=== PATIENT | female | born 1950 | race Caucasian/White ===

== ENCOUNTER 2017-04-20 19:29 | Inpatient (IN) | payer BC, OTHER ==
[~2017-04-20] VITALS: Ht 154.9 cm; Wt 110.4 kg
[~2017-04-20 19:29] MED LIST: APIX1TAB3 PO; ASCO1CAP3 PO; ATV/1 PO; BENA1TAB19 PO; BIOTCAP2 PO; CHOL1CAP57 PO; CLR10 PO; CRD200 PO; CYAN100020 PO; DOCU-94 PO; FERR1TAB23 PO; FURO40TA3 PO; GLC500 PO; INOS500T PO; ISOS30TA3 PO; LEVO112T2 PO; MAGN400T6 PO; MELATAB2 PO; METHPOW7 PO; MISCCAP80 PO; MULT-513 PO; PYRI100T4 PO; SYMIN160 PO; TRAM-10 PO; VITACAP37 PO
[2017-04-20] MEDS ORDERED: DILTIAZEM HCL 5 MG/ML 5 ML VIAL ONE ×2 (19:43→23:00)
[2017-04-20] MEDS ORDERED: APIXABAN 2.5 MG TAB PO STA (19:55)
[2017-04-20] MEDS ORDERED: DILTIAZEM BOLUS / DRIP IV STA ×2 (20:04→22:37)
[2017-04-20 20:13] LABS: BASO % 0.7 %; BASO ABS # 0.06 K/uL (0-0.2); COMPLETE YES; EOS % 3.6 %; HEMATOCRIT 45.8 % (37-47); IG% 0.2 %; LYMPH % 21.8 %; LYMPH ABS # 1.75 K/uL (1.2-3.4); MEAN CELL VOLUME 93.9 fL (80-100); MEAN CORPUSCULAR HEMOGLOBIN 30.1 pg (25-34); MEAN CORPUSCULAR HGB CONC 32.1 g/dl (32-36); MEAN PLATELET VOLUME 10.8 fL (7.4-10.4); MONO % 6.1 %; NEUT % 67.6 %; PLATELET COUNT 196 K/uL (130-400); RED BLOOD COUNT 4.88 M/uL (4.2-5.4); WHITE BLOOD COUNT 8.02 K/uL (4.8-10.8)
[2017-04-20 20:28] LABS: PARTIAL THROMBOPLASTIN RATIO 1.1; PROTHROMBIN TIME (PATIENT) 10.8 SECONDS (9.0-12.0)
[2017-04-20] MEDS: DILTIAZEM HCL INJ 125 MG in DEXTROSE 5% 100ML IV PRN ×2 (20:40→21:32)
[2017-04-20 20:51] LABS: BUN/CREATININE RATIO 13.6 (10-20); CALCIUM 9.5 mg/dl (8.5-10.1); CREATININE 1.2 mg/dl (0.60-1.20); MAGNESIUM 1.9 mg/dl (1.8-2.4); POTASSIUM 4.3 mmol/L (3.5-5.1)
--- NOTE | 2017-04-20 20:59 | DIAGNOSTIC IMAGING REPORT ---
CHEST ONE VIEW PORTABLE CLINICAL HISTORY: 66 years-old Female presenting with cp. TECHNIQUE: Portable upright AP view of the chest was obtained. COMPARISON: 07/24/2016. FINDINGS: Cardiac silhouette enlarged. Bibasilar opacities, new from prior. Increased prominence of interstitial lung markings. No significant change in pulmonary vascular prominence. No large pleural effusion or pneumothorax. Osseous structures normal. Upper abdomen normal. IMPRESSION: 1. Bibasilar opacities and interstitial prominence in the setting of cardiomegaly. This could represent mild pulmonary edema, aspiration, or infection. Electronically signed by: Ephraim Mera M.D. 04/20/2017 8:57 PM Dictated Date/Time: 04/20/2017 8:55 PM
[2017-04-20] MEDS ORDERED: LORAZEPAM 1 MG TAB PO PRN (22:30)
[2017-04-20] MEDS ORDERED: TRAMADOL HCL 50 MG TAB PO PRN (22:30)
--- NOTE | 2017-04-20 22:36 | EMERGENCY ROOM VISIT NOTE ---
History Report prepared by Jazz: Keyshawn Kaye Under the Supervision of: Dr. Tucker Leone M.D. First contact with patient: 19:40 Chief Complaint: CARDIAC ASSESSMENT Stated Complaint: ATRIAL FIBRILATION 170 History of Present Illness The patient is a 66 year old female who presents to the Emergency Room with complaints of constant, sudden, middle chest pain beginning 45 minutes ago. She currently rates her discomfort an 8/10. The patient states her heart suddenly began to race. She reports her chest pain and shortness of breath began at the same time her heart began to race. The patient notes she has a history of atrial fibrillation with RVR. She states she had a cardiac ablation 7 months ago , and her heart has not raced since. The patient reports she currently takes 5mg of Eliquis twice a day, and she has not taken her evening dose yet. She also reports that she is taking amiodarone. She notes she has a history of asthma and used her rescue inhaler. She does use oxygen when necessary. The patient states her shortness of breath was slightly alleviated, but then her heart began to race. She reports she is on oxygen at home at night. The patient notes she was on Lasix, but she stopped taking it 2 months ago. She denies fevers, vomiting, diarrhea, blood clot in the lungs, and being bed ridden recently. The patient states she has a history of thyroid problems, but she denies a history of [place]. Source of History: patient Onset: 45 minutes ago Position: chest (middle) Timing: constant Associated Symptoms: + SOB, No fevers, No vomiting, No diarrhea Review of Systems See HPI for pertinent positives & negatives. A total of 10 systems reviewed and were otherwise negative. Past Medical & Surgical Medical Problems: (1) Acute respiratory failure (2) Aortic Atherosclerosis (3) Atrial fibrillation with RVR (4) Cellulitis Nos (5) Chest pain (6) Diab Ninfa Wo Compl, Type Ii Or Unspec Type, Not Uncntrld (7) Hypertensive urgency (8) Hypothyroidism Nos (9) Morbid Obesity Family History Heart disease Social History Smoking Status: Never Smoker Drug Use: none Marital Status: Housing Status: lives with family Occupation Status: retired Current/Historical Medications Scheduled Amiodarone HCl (Amiodarone HCl), 200 MG PO QAM Apixaban (Eliquis), 5 MG PO BID Ascorbic Acid (Vitamin C), 1 CAP PO QAM Benazepril (Lotensin), 40 MG PO QAM Biotin (Biotin 5000), 1 CAP PO DAILY Budesonide/Formoterol Fumarate (Symbicort 160/4.5 Inhaler), 2 PUFFS PO BID Cholecalciferol (Vitamin D3), 2,000 UNITS PO DAILY Cyanocobalamin (Vitamin B12), 1 CAP PO DAILY Docusate Sodium (Colace), 100 CAP PO QAM Inositol (Inositol), Unknown Dose PO DAILY Isosorbide Mononitrate Ext Rel (Imdur Ext Rel), 30 MG PO QAM Levothyroxine Sodium (Synthroid), 112 MCG PO QAM Loratadine (Claritin), 10 MG PO QAM Magnesium Oxide (Mag-Ox), 400 MG PO DAILY Melatonin (Melatonin Maximum Strengt), 1 TAB PO HS Metformin HCl (Metformin HCl), 500 MG PO BID Methylcellulose (Laxative) (Citrucel Fiber Laxative), 1 TBS PO QAM Multivitamins/Minerals (Mvi With Minerals), 1 TAB PO DAILY Probiotic Product (Probiotic), 1 CAP PO DAILY Pyridoxine (Vitamin B6), 100 MG PO DAILY Vitamin E (E-400), 1 CAP PO DAILY Scheduled PRN Lorazepam (Ativan), 1 MG PO QID PRN for Anxiety Tramadol (Ultram), 50-100 MG PO DAILY PRN for Pain Allergies Coded Allergies: Azithromycin (Unverified Allergy, Unknown, LEUKOCYTOPLASTIC VASCULITIS, ) Povidone (Verified Allergy, Unknown, RASH, 04/20/17) NSAIDs (Verified Adverse Reaction, Mild, HIGH BP - AVOID, GASTRIC UPSET/ GI BLEEDING, 04/20/17) Adhesives (Verified Adverse Reaction, Unknown, RASH, 04/20/17) Physical Exam Vital Signs Date Time Temp Pulse Resp B/P (MAP) Pulse Ox O2 Delivery O2 Flow Rate FiO2 04/20/17 21:41 128/96 04/20/17 21:40 134 27 93 04/20/17 21:35 119 24 95 04/20/17 21:34 126/80 04/20/17 21:32 04/20/17 21:30 136 29 04/20/17 21:25 123 21 92 04/20/17 21:21 120/71 04/20/17 21:20 112 23 92 04/20/17 21:15 125 15 94 04/20/17 21:11 04/20/17 21:10 117 32 95 04/20/17 21:05 136 27 95 04/20/17 21:01 124/66 04/20/17 21:00 133 23 95 04/20/17 20:23 122 20 124/77 90 Nasal Cannula 4.0 04/20/17 20:10 137 04/20/17 20:07 109 26 139/102 89 Nasal Cannula 4.0 04/20/17 20:06 89 Nasal Cannula 4.0 04/20/17 20:06 89 Nasal Cannula 4.0 04/20/17 19:33 36.9 185 26 152/88 85 Room Air Physical Exam Constitutional: Vital signs reviewed. Pale and diaphoretic. Eyes: Pupils are equal round reactive to light. Conjunctiva are noninjected. ENT: Pharynx is clear without erythema or exudate. Mucous membranes are moist. Neck supple without meningeal signs. Respiratory: Clear to auscultation bilaterally. Breath sounds are equal bilaterally. Cardiovascular: Tachycardic rate of 180 and regular rhythm. No rubs or gallops. GI: Soft, nondistended and nontender. Bowel sounds are present. Musculoskeletal: Mild peripheral edema. No lower extremity tenderness. Integumentary: No cyanosis. Neurological: The patient is awake and alert. No focal deficits. Psychiatric: Normal affect. Anxious. Medical Decision & Procedures ER Provider Diagnostic Interpretation: X-ray results as stated below per interpretation by me and the radiologist: CHEST ONE VIEW PORTABLE CLINICAL HISTORY: 66 years-old Female presenting with cp. TECHNIQUE: Portable upright AP view of the chest was obtained. COMPARISON: 07/24/2016. FINDINGS: Cardiac silhouette enlarged. Bibasilar opacities, new from prior. Increased prominence of interstitial lung markings. No significant change in pulmonary vascular prominence. No large pleural effusion or pneumothorax. Osseous structures normal. Upper abdomen normal. IMPRESSION: 1. Bibasilar opacities and interstitial prominence in the setting of cardiomegaly. This could represent mild pulmonary edema, aspiration, or infection. Electronically signed by: Ephraim Mera M.D. 04/20/2017 8:57 PM Dictated Date/Time: 04/20/2017 8:55 PM Laboratory Results 04/20/17 19:55 Red Blood Count 4.88, Mean Corpuscular Volume 93.9, Mean Corpuscular Hemoglobin 30.1, Mean Corpuscular Hemoglobin Concent 32.1, Mean Platelet Volume 10.8, Neutrophils (%) (Auto) 67.6, Lymphocytes (%) (Auto) 21.8, Monocytes (%) (Auto) 6.1, Eosinophils (%) (Auto) 3.6, Basophils (%) (Auto) 0.7, Neutrophils # (Auto) 5.41, Lymphocytes # (Auto) 1.75, Monocytes # (Auto) 0.49, Eosinophils # (Auto) 0.29, Basophils # (Auto) 0.06 04/20/17 19:55 Test 04/20/17 19:55 04/20/17 20:01 White Blood Count 8.02 K/uL (4.8-10.8) Red Blood Count 4.88 M/uL (4.2-5.4) Hemoglobin 14.7 g/dL (12.0-16.0) Hematocrit 45.8 % (37-47) Mean Corpuscular Volume 93.9 fL (80-100) Mean Corpuscular Hemoglobin 30.1 pg (25-34) Mean Corpuscular Hemoglobin Concent 32.1 g/dl (32-36) Platelet Count 196 K/uL (130-400) Mean Platelet Volume 10.8 fL (7.4-10.4) Neutrophils (%) (Auto) 67.6 % Lymphocytes (%) (Auto) 21.8 % Monocytes (%) (Auto) 6.1 % Eosinophils (%) (Auto) 3.6 % Basophils (%) (Auto) 0.7 % Neutrophils # (Auto) 5.41 K/uL (1.4-6.5) Lymphocytes # (Auto) 1.75 K/uL (1.2-3.4) Monocytes # (Auto) 0.49 K/uL (0.11-0.59) Eosinophils # (Auto) 0.29 K/uL (0-0.5) Basophils # (Auto) 0.06 K/uL (0-0.2) RDW Standard Deviation 50.6 fL (36.4-46.3) RDW Coefficient of Variation 14.7 % (11.5-14.5) Immature Granulocyte % (Auto) 0.2 % Immature Granulocyte # (Auto) 0.02 K/uL (0.00-0.02) Prothrombin Time 10.8 SECONDS (9.0-12.0) Prothromb Time International Ratio 1.0 (0.9-1.1) Activated Partial Thromboplast Time 29.0 SECONDS (21.0-31.0) Partial Thromboplastin Ratio 1.1 Anion Gap 9.0 mmol/L (3-11) Est Creatinine Clear Calc Drug Dose 53.3 ml/min Estimated GFR () 54.2 Estimated GFR (Non- 46.7 BUN/Creatinine Ratio 13.6 (10-20) Calcium Level 9.5 mg/dl (8.5-10.1) Magnesium Level 1.9 mg/dl (1.8-2.4) Thyroid Stimulating Hormone (TSH) 4.000 uIu/ml (0.300-4.500) Free Thyroxine 1.34 ng/dl (0.80-1.60) Chemistry Specimen Hemolysis Bedside Troponin I < 0.030 ng/ml (0-0.045) Laboratory results as reviewed by me. Medications Administered Medications (Trade) Dose Ordered Sig/Deepthi Route Start Time Stop Time Status Last Admin Dose Admin Diltiazem HCl (Cardizem Inj) 25 mg STK-MED ONCE .ROUTE 04/20/17 19:43 04/20/17 19:44 DC 04/20/17 20:03 10 MG Apixaban (Eliquis Tab) 5 mg NOW STAT PO 04/20/17 19:55 04/20/17 19:58 DC 04/20/17 20:12 5 MG Diltiazem HCl 125 mg/Dextrose 125 ml @ 0 mls/hr Q0M PRN IV 04/20/17 20:15 05/20/17 20:14 04/20/17 21:32 15 MLS/HR ECG Indication: chest pain Rate (beats per minute): 173 Rhythm: atrial fibrillation (with RVR) Findings: RBBB, left axis deviation, other (QRS of 150) Comparison ECG Date: 07/24/16 Change: Comparison: similar atrial fibrillation with RVR Repeat EKG in the same visit: Atrial fibrillation with a rate of 132. QRS of 116. ST-depressions laterally. ED Course 1940: The patient was evaluated in room C06. A complete history and physical exam was performed. 1942: Ordered Diltiazem HCl 25mg .ROUTE 1954: Ordered Eliquis Tab 5mg PO 2002: I discussed the patient's case with Dr. Jarvis, [facility] House Parent. He said go with the Cardizem drop and increase her amiodarone to 200mg. 2014: Diltiazem HCl 125mg/Dextrose 125 ml @ 0mls/hr Protocol IV 2040: I reevaluated the patient. Her heart rate is in the 120s, and the Cardizem drip infusion is in process. 2101: I reevaluated the patient and discussed her exam findings, as wells as the treatment plan. The patient verbalized agreement. Her heart rate is still in the 120s, and she no longer has chest pain. The Cardizem drip is still running. 2105: I discussed the patient's case with Dr. Cole, [facility] Hospitalist. He will evaluate the patient for further management and care. Medical Decision This is a 66-year-old female who presents with sudden onset of tachycardia with associated chest pain and shortness of breath. Differential diagnoses includes A. fib with RVR, ventricular tachycardia, acute coronary syndrome, pulmonary embolism, anxiety, electrolyte abnormality. I did perform a limited focused review of portions of the patient's old chart on the electronic medical record. The patient was admitted for atrial fibrillation with RVR in June. I did evaluate the patient as noted above. IV access was established. The patient was placed on a continuous vehicle monitor technician. I did order and personally review the patient's 12-lead EKG and chest x-ray as described above. The patient does appear to have atrial fibrillation with RVR with a wide complex rhythm. She is a prior history of atrial fibrillation with RVR. Her rate is in the 180s. I did treat her with IV Cardizem 10 mg. This improved her heart rate and symptoms significantly but she remained tachycardic. She was given another bolus of 10 mg of IV Cardizem and started on a drip at 10 mg an hour IV. She had resolution of her chest pain but still had some mild tachycardia. Repeat twelve-lead EKG was obtained. Her QRS did narrow. Her rate is improved. She no longer has any chest pain. I did order and review the patient 's blood work as noted in the electronic medical record. Troponin is negative. TFTs are negative. I did not feel pulmonary embolism was likely given she is on L it lists. She did take her dose this morning but not this evening. She was given L it was 5 mg orally. I did reassess the patient multiple times. She remains chest pain-free. I did discuss the test results with her. I did discuss case with the hospitalist and keycase assembler. Medication Reconcilliation Current Medication List: was personally reviewed by me Blood Pressure Screening Patient's blood pressure: Elevated blood pressure Blood pressure disposition: Referred to PCP Consults Time Called: 1947 Consulting Physician: Dr. Jarvis, [facility] House Parent Returned Call: 2002 I discussed the patient's case with Dr. Jarvis, [facility] House Parent. He said go with the Cardizem drop and increase her amiodarone to 200mg. Additional Consults: Time Called: 2058 Consulted Physician: Dr. Cole [facility] Hospitalist Returned Call: 2105 Additional Comments: I discussed the patient's case with Dr. Cole [facility] Hospitalist. He will evaluate the patient for further management and care. Impression Primary Impression: Atrial fibrillation with rapid ventricular response Additional Impressions: Anticoagulated Hypoxia Acute chest pain Critical Care I have personally spent 35 minutes of critical care time in the direct management of this patient. This includes bedside care, interpretation of diagnostic studies, and testing, discussion with consultants, patient, and family members, and other required patient management activities. This 35 minutes is in excess of all separately billable procedures. Scribe Attestation The scribe's documentation has been prepared under my direct and personally reviewed by me in its entirety. I confirm that the note above accurately reflects all work, treatment, procedures, and medical decision making performed by me. Departure Information Dispostion Being Evaluated By Hospitalist Referrals Lewis Villaseñor M.D. (PCP) Patient Instructions [facility] Problem Qualifiers
[2017-04-20] MEDS ORDERED: DILTIAZEM HCL 5 MG/ML 5 ML VIAL IV STA (22:42)
[2017-04-20] MEDS ORDERED: LORAZEPAM 2 MG/ML 1 ML VIAL IV STA (22:42)
[2017-04-20] MEDS ORDERED: MAGNESIUM HYDROXIDE SUSP 30 ML UDC PO PRN (22:45)
[2017-04-20] MEDS ORDERED: NITROGLYCERIN 0.4 MG SL PER TAB CHARGE SL PRN (22:45)
[2017-04-20] MEDS ORDERED: POLYETHYLENE (MIRALAX) 17 GM PACK PO PRN (22:45)
[2017-04-20] MEDS ORDERED: ALUMINUM/MAGNESIUM/SIMETH (MAALOX MAX) 30 ML UDC PO PRN (22:45)
[2017-04-20] MEDS ORDERED: ONDANSETRON INJ 2 MG/ML 2 ML VIAL IV PRN (22:45)
[2017-04-20] MEDS ORDERED: MoRPHine SULFATE 2 MG/ML CARP IV PRN (22:45)
--- NOTE | 2017-04-20 22:45 | History and Physical ---
History & Physical Date & Time of Service: Apr 20, 2017 at 22:42 Chief Complaint: Atrial Fibrilation 170 Primary Care Physician: Lewis Villaseñor M.D. History of Present Illness Source: patient 66 y/o F Hx paroxysmal AF, HTN, hypothyroidism, DM, morbidly obese. Pt developed chest discomfort with minimal SOB - denies n/v, diaphoresis. Admits to feeling anxious. On arrival to the ER initial EKG revealed AF/RVR with rate of 180 and a LBBB which appears to be rate-dependent. She responded only partially to an initial dose of Cardizem with a rate reduction to approximately 120. She continued to c/o chest discomfort although she denies actual pain. Her sales & service associate was contacted and advised on doubling her dose of Amiodarone and keeping her on a Cardizem drip pending AM evaluation. Past Medical/Surgical History Medical Problems: 1) Paroxysmal AF 2) Moderate mitral stenosis with severe calcification on echo 2014 3) Morbid obesity 4) Hypothyroidism 5) DM II 6) HTN Surgical 1) B/L TKR 2) Hemorrhoidectomy due to bleeding when taking anticoagulants Family History Heart disease Social History Smoking Status: Never Smoker Drug Use: none Marital Status: Occupational Status: retired Immunizations History of Influenza Vaccine: N/A History of Tetanus Vaccine?: Yes History of Pneumococcal: No History of Hepatitis B Vaccine: No Multi-Drug Resistant Organisms History of MDRO: Yes Type of MDRO: MRSA Allergies Coded Allergies: Azithromycin (Unverified Allergy, Unknown, LEUKOCYTOPLASTIC VASCULITIS, ) Povidone (Verified Allergy, Unknown, RASH, 04/20/17) NSAIDs (Verified Adverse Reaction, Mild, HIGH BP - AVOID, GASTRIC UPSET/ GI BLEEDING, 04/20/17) Adhesives (Verified Adverse Reaction, Unknown, RASH, 04/20/17) Home Medications Scheduled Amiodarone HCl (Amiodarone HCl), 200 MG PO QAM Apixaban (Eliquis), 5 MG PO BID Ascorbic Acid (Vitamin C), 1 CAP PO QAM Benazepril (Lotensin), 40 MG PO QAM Biotin (Biotin 5000), 1 CAP PO DAILY Budesonide/Formoterol Fumarate (Symbicort 160/4.5 Inhaler), 2 PUFFS PO BID Cholecalciferol (Vitamin D3), 2,000 UNITS PO DAILY Cyanocobalamin (Vitamin B12), 1 CAP PO DAILY Docusate Sodium (Colace), 100 CAP PO QAM Inositol (Inositol), Unknown Dose PO DAILY Isosorbide Mononitrate Ext Rel (Imdur Ext Rel), 30 MG PO QAM Levothyroxine Sodium (Synthroid), 112 MCG PO QAM Loratadine (Claritin), 10 MG PO QAM Magnesium Oxide (Mag-Ox), 400 MG PO DAILY Melatonin (Melatonin Maximum Strengt), 1 TAB PO HS Metformin HCl (Metformin HCl), 500 MG PO BID Methylcellulose (Laxative) (Citrucel Fiber Laxative), 1 TBS PO QAM Multivitamins/Minerals (Mvi With Minerals), 1 TAB PO DAILY Probiotic Product (Probiotic), 1 CAP PO DAILY Pyridoxine (Vitamin B6), 100 MG PO DAILY Vitamin E (E-400), 1 CAP PO DAILY Scheduled PRN Lorazepam (Ativan), 1 MG PO QID PRN for Anxiety Tramadol (Ultram), 50-100 MG PO DAILY PRN for Pain Review of Systems Constitutional: No fever, No chills, No sweats Eyes: No worsening of vision ENT: No hearing loss, No unusual epistaxis, No nasal symptoms Respiratory: + shortness of breath, No cough, No sputum, No wheezing Cardiovascular: No chest pain Abdomen: No pain, No nausea Musculoskeletal: No joint pain Genitourinary - Female: No dysuria, No urinary frequency, No urinary urgency, No urinary incontinence, No urinary retention, No hematuria Neurologic: No memory loss, No paralysis, No weakness Psychiatric: No depression symptoms Endocrine: No fatigue Hematologic / Lymphatic: No abnormal bleeding/bruising Integumentary: No rash Allergic / Immunologic: No environmental allergies Physical Exam Vital Signs Date Time Temp Pulse Resp B/P (MAP) Pulse Ox O2 Delivery O2 Flow Rate FiO2 04/20/17 22:31 120/97 04/20/17 22:30 139 25 04/20/17 22:22 108/79 04/20/17 22:20 134 29 04/20/17 22:11 122/92 04/20/17 22:10 155 28 04/20/17 22:02 137/85 04/20/17 22:00 129 28 04/20/17 21:51 130/88 04/20/17 21:50 131 25 92 04/20/17 21:41 128/96 04/20/17 21:40 134 27 93 04/20/17 21:35 119 24 95 04/20/17 21:34 126/80 04/20/17 21:32 04/20/17 21:30 136 29 04/20/17 21:25 123 21 92 04/20/17 21:21 120/71 04/20/17 21:20 112 23 92 04/20/17 21:15 125 15 94 04/20/17 21:11 04/20/17 21:10 117 32 95 04/20/17 21:05 136 27 95 04/20/17 21:01 124/66 04/20/17 21:00 133 23 95 04/20/17 20:23 122 20 124/77 90 Nasal Cannula 4.0 04/20/17 20:10 137 04/20/17 20:07 109 26 139/102 89 Nasal Cannula 4.0 04/20/17 20:06 89 Nasal Cannula 4.0 04/20/17 20:06 89 Nasal Cannula 4.0 04/20/17 19:33 36.9 185 26 152/88 85 Room Air General Appearance: WD/WN, no apparent distress Head: normocephalic, + pertinent finding (Scarring over cheeks) Eyes: normal inspection ENT: normal ENT inspection, pharynx normal Neck: supple, no JVD Respiratory/Chest: chest non-tender, lungs clear, normal breath sounds Cardiovascular: + tachycardia, + systolic murmur, + irregularly irregular Abdomen/GI: normal bowel sounds, non tender, soft Back: normal inspection, no CVA tenderness Extremities/Musculoskelatal: normal inspection, no calf tenderness, normal capillary refill, no pedal edema, normal range of motion Neurologic/Psych: sr account executive II-XII nml as tested, no motor/sensory deficits, alert, oriented x 3 Skin: normal color, warm/dry, no rash Diagnostics Laboratory Results Results Past 24 Hours Test 04/20/17 19:55 04/20/17 20:01 Range/Units White Blood Count 8.02 4.8-10.8 K/uL Red Blood Count 4.88 4.2-5.4 M/uL Hemoglobin 14.7 12.0-16.0 g/dL Hematocrit 45.8 37-47 % Mean Corpuscular Volume 93.9 80-100 fL Mean Corpuscular Hemoglobin 30.1 25-34 pg Mean Corpuscular Hemoglobin Concent 32.1 32-36 g/dl Platelet Count 196 130-400 K/uL Mean Platelet Volume 10.8 7.4-10.4 fL Neutrophils (%) (Auto) 67.6 % Lymphocytes (%) (Auto) 21.8 % Monocytes (%) (Auto) 6.1 % Eosinophils (%) (Auto) 3.6 % Basophils (%) (Auto) 0.7 % Neutrophils # (Auto) 5.41 1.4-6.5 K/uL Lymphocytes # (Auto) 1.75 1.2-3.4 K/uL Monocytes # (Auto) 0.49 0.11-0.59 K/uL Eosinophils # (Auto) 0.29 0-0.5 K/uL Basophils # (Auto) 0.06 0-0.2 K/uL RDW Standard Deviation 50.6 36.4-46.3 fL RDW Coefficient of Variation 14.7 11.5-14.5 % Immature Granulocyte % (Auto) 0.2 % Immature Granulocyte # (Auto) 0.02 0.00-0.02 K/uL Prothrombin Time 10.8 9.0-12.0 SECONDS Prothromb Time International Ratio 1.0 0.9-1.1 Activated Partial Thromboplast Time 29.0 21.0-31.0 SECONDS Partial Thromboplastin Ratio 1.1 Sodium Level 144 136-145 mmol/L Potassium Level 4.3 3.5-5.1 mmol/L Chloride Level 110 98-107 mmol/L Carbon Dioxide Level 25 21-32 mmol/L Anion Gap 9.0 3-11 mmol/L Blood Urea Nitrogen 16 7-18 mg/dl Creatinine 1.20 0.60-1.20 mg/dl Est Creatinine Clear Calc Drug Dose 53.3 ml/min Estimated GFR () 54.2 Estimated GFR (Non- 46.7 BUN/Creatinine Ratio 13.6 10-20 Random Glucose 159 70-99 mg/dl Calcium Level 9.5 8.5-10.1 mg/dl Magnesium Level 1.9 1.8-2.4 mg/dl Thyroid Stimulating Hormone (TSH) 4.000 0.300-4.500 uIu/ml Free Thyroxine 1.34 0.80-1.60 ng/dl Chemistry Specimen Hemolysis Bedside Troponin I < 0.030 0-0.045 ng/ml EKG Inital EKG at rate of 178 - AF/RVR, L axis, LBBB - appears rate-dependent Follow-up rate 130 - AF/RVR, LAFB - morphology similar to previous Impression Assessment and Plan 66 y/o F Hx paroxysmal AF, HTN, hypothyroidism, DM, morbidly obese. Pt developed chest discomfort with minimal SOB - denies n/v, diaphoresis. Admits to feeling anxious. On arrival to the ER initial EKG revealed AF/RVR with rate of 180 and a LBBB which appears to be rate-dependent. She responded only partially to an initial dose of Cardizem with a rate reduction to approximately 120. She continued to c/o chest discomfort although she denies actual pain. 1) Rapid AF chest discomfort - has been difficult to control in past - she had required cardioversion 09/11. Her sales & service associate was contacted and advised on doubling her dose of Amiodarone and keeping her on a Cardizem drip pending AM evaluation. We will attempt to control her rate with Cardizem and Amio alone as she states she does not tolerate B blockers well - has apparently developed significant hypotension in past. The pt also states that when she has episodes of AF at home, she takes an Ativan and normally rides them out. We have obliged her with Ativan at her request. Due to her ongoing chest discomfort, we will trend her troponin and may need additional rate control measures if she exhibits an upward trend. The pt is anticoagulated with Eliquis. She claims an ASA allergy - we will provide Plavix if her troponin increases. 2) Hypothyroidism - TSH WNL - cont Synthroid 3) DM - placed on SS 4) HTN - we have held her HTN meds to allow for administration of additional rate agents as needed. Full jakob - Eliquis anticoagulation Total time for this admit including review of labs, meds, imaging, EKG, revious records - discussion with pt and ER attending - 40 min Level of Care Telemetry Resuscitation Status FULL RESUSCITATION VTE Prophylaxis VTE Risk Assessment Done? Y/N: Yes Risk Level: Moderate Given or contraindicated: Other Anticoagulation
[2017-04-20] MEDS ORDERED: LORAZEPAM 2 MG/ML 1 ML VIAL ONE (23:00)
[2017-04-20 23:30] VITALS: BP 146/81; PULSE 126; TEMP 37.2; O2SAT 93; Ht 154.9 cm; Wt 110.4 kg
[2017-04-20] MEDS ORDERED: GLUCAGON FOR INJ 1 MG VIAL SQ PRN (23:30)
[2017-04-20] MEDS ORDERED: GLUCOSE 10 TABS/TUBE PO PRN (23:30)
[2017-04-20] MEDS ORDERED: DEXTROSE 50% 50 ML SYR IV PRN (23:30)
[2017-04-20] MEDS ORDERED: GLUCOSE 40% GEL 15 GM TUBE PO PRN (23:30)
[2017-04-21] VITALS (9 sets, daily range): BP systolic 118–157; BP diastolic 68–93; PULSE 18–120; TEMP 36.6–37; O2SAT 92–98
[2017-04-21] MEDS ORDERED: DILTIAZEM HCL INJ 125 MG in DEXTROSE 5% 100ML IV PRN (00:30)
[2017-04-21] MEDS ORDERED: HEPARIN SOD 5000 UNIT/0.5 ML CARP SQ SCH (06:00)
[2017-04-21] MEDS: LEVOTHYROXINE 112 MCG TAB PO SCH (06:09)
[2017-04-21] MEDS: INSULIN ASPART 100 UNITS/ML 3 ML PEN SC SCH ×4 (07:00→20:48)
[2017-04-21] MEDS ORDERED: INFLUENZA ADMINISTRATION CHARGE ONE (08:00)
[2017-04-21] MEDS ORDERED: INFLUENZA VACCINE HIGH DOSE 65+ 0.5 ML SYR IM. ONE (08:00)
[2017-04-21] MEDS: MAGNESIUM OXIDE 400 MG TAB PO SCH (08:25)
[2017-04-21] MEDS: APIXABAN 2.5 MG TAB PO SCH ×2 (08:25→20:49)
[2017-04-21] MEDS: AMIODARONE 200 MG TAB PO SCH ×2 (08:25→20:49)
[2017-04-21] MEDS: ISOSORBIDE MONONITRATE 30 MG TABCR PO SCH (08:25)
[2017-04-21] MEDS: LORATADINE 10 MG TAB PO SCH (08:25)
[2017-04-21] MEDS: BUDESONIDE/FORMOTEROL FUMARATE 160/4.5 60 PUFFS/INHALER INH SCH ×2 (08:25→20:49)
[2017-04-21] MEDS: DOCUSATE SODIUM 100 MG CAP PO SCH (08:25)
[2017-04-21] MEDS ORDERED: AMIODARONE 200 MG TAB PO SCH (09:00)
--- NOTE | 2017-04-21 09:08 | Cardiology Consultation ---
Cardiology Consultation Date of Consultation: Apr 21, 2017. Requesting Physician: Douglas Reason for Consultation: Atrial fibrillation with RVR History of Present Illness Ms. Farley is a very pleasant 66-year-old woman with a history of atrial fibrillation post AF ablation 08/2016 still on anticoagulation and amiodarone, chronic diastolic heart failure, nonsevere valvular heart disease including rheumatic mild mitral stenosis, aortic stenosis and cugr-fz-xxfcbriv aortic regurgitation, diabetes readmitted yesterday in the setting of recurrent AF + RVR. Her cardiac history is remarkable for atrial fibrillation initially diagnosed back in April of 2014. Since then she has had multiple recurrent episodes requiring hospitalization. She has been managed with diltiazem and beta- blockers at different points but these medications have been stopped due to poor tolerance in the setting of fatigue. She has been managed with amiodarone and Eliquis since July 2014 with 1 or 2 hospitalizations a year since then and intermittent symptoms occurring every several weeks, worse in times of stress. In 2015 due to worsening shortness of breath underwent cardiac workup which included a transesophageal echo in August which confirmed mild to moderate valvular heart disease. Also underwent a left and right heart catheterization which showed only minimal coronary luminal irregularities but was noteworthy for elevated left and right-sided filling pressures with a right atrial pressure 14, mean PA pressure of 31 and a wedge pressure of 30. Patient was started on Imdur following heart catheterization for presumed chronic diastolic heart failure and had modest improvement in her shortness of breath. Patient was readmitted in July of this year with atrial fibrillation with RVR. She converted to normal sinus rhythm after IV diltiazem. After hospitalization she endorsed near daily atrial fibrillation symptoms that were no longer tolerable and as result underwent AF ablation on 09/18/2016 at [facility]. Since her AF ablation in 7 months ago she had been doing well with no recurrent symptomatic AF. Over the weekend states she was dealing with increased physical /emotional stress. Yesterday reports feeling unwell during the day but denies any preceding fevers/chills or other localizing infectious symptoms. Around 6pm yesterday acutely felt palpitations/chest pain reminiscent of prior AF symptoms. Home HR in 180s leading patient to ED. Initial ECG showed AF with RVR to 173 with LBBB. Given 10mg IV diltiazem and started on an infusion titrated up to 15mg/hr overnight. HRs down to 110s to 130s with partial relief of chest pain but persistent palpitations. Past Medical/Surgical History 1. TONY (acute kidney injury) (N17.9) 2. Aortic stenosis (I35.0) 3. Asthma (J45.909) 4. Atrial fibrillation (I48.91) 5. Chronic diastolic congestive heart failure (I50.32) 6. Chronic obstructive pulmonary disease, unspecified COPD type (J44.9) 7. CKD (chronic kidney disease), stage III (N18.3) 8. Coronary arteriosclerosis (I25.10) 9. Cough (R05) 10. Hyperlipidemia (E78.5) 11. Hypertension (I10) 12. Hypothyroidism (E03.9) 13. Hypoxemia (R09.02) 14. Nocturnal hypoxemia (G47.34) 15. Obesity, morbid, BMI 40.0-49.9 (E66.01) 16. Preoperative cardiovascular examination (Z01.810) 17. Pre-operative exam (Z01.818) 18. Rheumatic mitral stenosis (I05.0) 19. SOB (shortness of breath) (R06.02) 20. Type 2 diabetes mellitus (E11.9) 21. Valvular heart disease (I38) Family History Heart disease No premature CAD or sudden cardiac Social History Smoking Status: Never Smoker History of Alcohol Use: No Review of Systems Respiratory: + cough All Other Systems: Reviewed and Negative Allergies Coded Allergies: Azithromycin (Unverified Allergy, Unknown, LEUKOCYTOPLASTIC VASCULITIS, ) Povidone (Verified Allergy, Unknown, RASH, 04/20/17) NSAIDs (Verified Adverse Reaction, Mild, HIGH BP - AVOID, GASTRIC UPSET/ GI BLEEDING, 04/20/17) Adhesives (Verified Adverse Reaction, Unknown, RASH, 04/20/17) Medications Current Inpatient Medications Medications (Trade) Dose Ordered Sig/Deepthi Route Start Time Stop Time Status Last Admin Dose Admin Budesonide/ Formoterol Fumarate (Symbicort 160/ 4.5 Inh) 2 puffs BID INH 04/21/17 09:00 05/21/17 08:59 04/21/17 08:25 2 PUFFS Docusate Sodium (coLACE CAP) 100 mg QAM PO 04/21/17 09:00 05/21/17 08:59 04/21/17 08:25 100 MG Isosorbide Mononitrate (Imdur Ext Rel Tab) 30 mg QAM PO 04/21/17 09:00 05/21/17 08:59 04/21/17 08:25 30 MG Levothyroxine Sodium (Synthroid Tab) 112 mcg DAILYBB PO 04/21/17 06:00 05/21/17 06:59 04/21/17 06:09 112 MCG Loratadine (Claritin Tab) 10 mg QAM PO 04/21/17 09:00 05/21/17 08:59 04/21/17 08:25 10 MG Lorazepam (Ativan Tab) 1 mg QID PRN PO 04/20/17 22:30 05/20/17 22:29 Magnesium Oxide (Mag-Ox Tab) 400 mg DAILY PO 04/21/17 09:00 05/21/17 08:59 04/21/17 08:25 400 MG Tramadol HCl (Ultram Tab) 50 mg DAILY PRN PO 04/20/17 22:30 05/20/17 22:29 Apixaban (Eliquis Tab) 5 mg BID PO 04/21/17 09:00 05/21/17 08:59 04/21/17 08:25 5 MG Insulin Aspart (novoLOG ASPART) SLIDING SCALE G... ACHS SC 04/21/17 07:00 05/21/17 06:59 Amiodarone HCl (Cordarone Tab) 200 mg BID PO 04/21/17 09:00 05/21/17 08:59 04/21/17 08:25 200 MG Acetaminophen (Tylenol Tab) 650 mg Q4H PRN PO 04/20/17 22:45 05/20/17 22:44 Al Hydrox/Mg Hydrox/Simethicone (Maalox Max Susp) 15 ml Q4H PRN PO 04/20/17 22:45 05/20/17 22:44 Magnesium Hydroxide (Milk Of Magnesia Susp) 30 ml Q12H PRN PO 04/20/17 22:45 05/20/17 22:44 Ondansetron HCl (Zofran Inj) 4 mg Q6H PRN IV 04/20/17 22:45 05/20/17 22:44 Nitroglycerin (Nitrostat Tab) 0.4 mg UD PRN SL 04/20/17 22:45 05/20/17 22:44 Morphine Sulfate (MoRPHine SULFATE INJ) 2 mg Q30M PRN IV 04/20/17 22:45 05/04/17 22:44 Polyethylene (Miralax Powder Packet) 17 gm DAILY PRN PO 04/20/17 22:45 05/20/17 22:44 Glucose (Glucose 40% Gel) 15-30 GRAMS 15 GRAMS... UD PRN PO 04/20/17 23:30 05/20/17 23:29 Glucose (Glucose Chew Tab) 4-8 Tablets 4 Tabl... UD PRN PO 04/20/17 23:30 05/20/17 23:29 Dextrose (Dextrose 50% 50ML Syringe) 25-50ML OF 50% DW IV FOR... UD PRN IV 04/20/17 23:30 05/20/17 23:29 Glucagon (Glucagon Inj) 1 mg UD PRN SQ 04/20/17 23:30 05/20/17 23:29 Diltiazem HCl 125 mg/Dextrose 125 ml @ 0 mls/hr Q0M PRN IV 04/21/17 00:30 05/21/17 00:29 Physical Exam Vital Signs Past 12 Hours Date Time Temp Pulse Resp B/P (MAP) Pulse Ox O2 Delivery O2 Flow Rate FiO2 04/21/17 07:57 36.7 107 18 129/73 (91) 94 2.5 04/21/17 04:35 36.7 113 20 124/73 (90) 94 2.5 04/21/17 04:12 Nasal Cannula 2.0 04/20/17 23:30 37.2 126 24 146/81 93 Nasal Cannula 2.0 04/20/17 23:21 127 24 110/89 93 Nasal Cannula 4.0 04/20/17 22:31 120/97 04/20/17 22:30 139 25 04/20/17 22:22 108/79 04/20/17 22:20 134 29 04/20/17 22:11 122/92 04/20/17 22:10 155 28 04/20/17 22:02 137/85 04/20/17 22:00 129 28 04/20/17 21:51 130/88 04/20/17 21:50 131 25 92 04/20/17 21:41 128/96 04/20/17 21:40 134 27 93 04/20/17 21:35 119 24 95 04/20/17 21:34 126/80 04/20/17 21:32 04/20/17 21:30 136 29 04/20/17 21:25 123 21 92 04/20/17 21:21 120/71 04/20/17 21:20 112 23 92 04/20/17 21:15 125 15 94 04/20/17 21:11 04/20/17 21:10 117 32 95 04/20/17 21:05 136 27 95 04/20/17 21:01 124/66 04/20/17 21:00 133 23 95 General: Comfortable, no acute distress Eyes: Sclerae anicteric, extraocular movements intact HENT: Oropharynx clear mucous membranes moist Neck: Supple, no lymphadenopathy, no thyromegaly. Lungs: Crackles at bases bilaterally Cardiac: Tachycardic, irregular, 3/6 systolic murmur heard best at the left upper sternal border, no rubs or gallops. No JVD. No peripheral edema. Extremities well perfused. Vascular: Normal carotid upstrokes, no bruits. 2+ radial, DP and PT pulses. No varicosities. Abdomen: Soft, nontender, nondistended positive bowel sounds. No hepatosplenomegaly Musculoskeletal: Normal gait. No joint deformities Skin: No rashes or lesions. Neuro: Cranial nerves 2-12 grossly intact, remainder exam nonfocal Psych: Alert orient x3, normal affect and mood Data Laboratory Results: Last 24 Hours Test 04/20/17 19:55 04/20/17 20:01 04/20/17 23:14 04/21/17 07:57 White Blood Count 8.02 K/uL Red Blood Count 4.88 M/uL Hemoglobin 14.7 g/dL Hematocrit 45.8 % Mean Corpuscular Volume 93.9 fL Mean Corpuscular Hemoglobin 30.1 pg Mean Corpuscular Hemoglobin Concent 32.1 g/dl Platelet Count 196 K/uL Mean Platelet Volume 10.8 fL Neutrophils (%) (Auto) 67.6 % Lymphocytes (%) (Auto) 21.8 % Monocytes (%) (Auto) 6.1 % Eosinophils (%) (Auto) 3.6 % Basophils (%) (Auto) 0.7 % Neutrophils # (Auto) 5.41 K/uL Lymphocytes # (Auto) 1.75 K/uL Monocytes # (Auto) 0.49 K/uL Eosinophils # (Auto) 0.29 K/uL Basophils # (Auto) 0.06 K/uL RDW Standard Deviation 50.6 fL RDW Coefficient of Variation 14.7 % Immature Granulocyte % (Auto) 0.2 % Immature Granulocyte # (Auto) 0.02 K/uL Prothrombin Time 10.8 SECONDS Prothromb Time International Ratio 1.0 Activated Partial Thromboplast Time 29.0 SECONDS Partial Thromboplastin Ratio 1.1 Sodium Level 144 mmol/L Potassium Level 4.3 mmol/L Chloride Level 110 mmol/L Carbon Dioxide Level 25 mmol/L Anion Gap 9.0 mmol/L Blood Urea Nitrogen 16 mg/dl Creatinine 1.20 mg/dl Est Creatinine Clear Calc Drug Dose 53.3 ml/min Estimated GFR () 54.2 Estimated GFR (Non- 46.7 BUN/Creatinine Ratio 13.6 Random Glucose 159 mg/dl Calcium Level 9.5 mg/dl Magnesium Level 1.9 mg/dl Thyroid Stimulating Hormone (TSH) 4.000 uIu/ml Free Thyroxine 1.34 ng/dl Chemistry Specimen Hemolysis Bedside Troponin I < 0.030 ng/ml Troponin I 0.048 ng/ml Imaging: CXR - 1. Bibasilar opacities and interstitial prominence in the setting of cardiomegaly. This could represent mild pulmonary edema, aspiration, or infection. EKG: AF+RVR to 173. LBBB Subsequent ECG after diltiazem AF 132 with LVH and qrs widening Prior Cardiovascular Studies: Echo (07/2015): Normal LV size, moderate LVH, hyperdynamic LV with EF greater than 70 percent, [id number]-irpigcgl aortic regurgitation, moderate aortic stenosis , severe mitral annular calcification, moderate mitral stenosis, estimated RV systolic pressure 30-40. Peak aortic velocity of 2.9 mean gradient of 22 calculated aortic valve area 1.1. Mitral valve pressure half-time 135 milliseconds, calculated mitral valve area 1.6. Transesophageal echo (08/2015): Moderate LVH, no regional motion abnormalities, EF 65-70 percent, mildly dilated left atrial enlargement mild , mild-to- moderate AR, [id number] MAC, mild mitral stenosis mitral valve pressure half time 1:34, calculated mitral valve area 1.6 centimeter squared, peak aortic velocity 2.9, mean gradient 21, calculated aortic valve area of 1.7, AI pressure halftime 466. Left and right heart catheterization (08/2015): RA 13, RV 49/18, PA 40 12/12/1931, wedge 29, Darío cardiac output 5.3/2.6 Coronary is with minimal lumen irregularities Assessment & Plan 1. Atrial fibrillation with RVR 2. Acute on chronic diastolic heart failure 3. Elevated troponin 4. Moderate aortic stenosis/xztk-xk-qerdyupy AI 5. Mild to moderate mitral stenosis, possibly rheumatic in nature 6. Hypertension 7. Diabetes 8. Asthma 9. Hypothyroidism on synthroid 10. Prior GI bleed/status post hemorrhoidectomy Patient here with first episode of atrial fibrillation post AF ablation 7 months ago Symptomatic AF+RVR to 130s this morning persists despite IV diltiazem. No clear reversible triggers other than recent stress. Signs of acute on chronic heart failure on exam/imaging -- Will plan for electrical external cardioversion today -- patient NPO overnight, has been on apixaban continuously for months -- Post procedure agree with BID amiodarone 200mg, wean off IV diltiazem as able. -- Repeat Echo today -- IV lasix 20 mg x1 today --> plan to resume prior standing 20mg PO on discharge -- continue home antihypertensives.
[2017-04-21] MEDS ORDERED: PROPOFOL IV EMULSION 10 MG/ML 20 ML VIAL IV ONE (09:13)
--- NOTE | 2017-04-21 09:47 | Procedure Note ---
Procedure Note Procedure Date Apr 21, 2017. Procedure Description Procedure Name: External Electrical Cardioversion Procedure time out: correct procedure Consent obtained: written Time of procedure: 09:30 Indications: therapeutic Contraindications: none Description: Indication: Persistent symptomatic AF with RVR Anesthesia provided by Dr. Correia. Pads placed in AP position. Received 1 synchronized shock at 200J. Summary: 1. Successful cardioversion to sinus bradycardia. Complications: none Patient tolerated procedure: well Post-procedure vital signs: reviewed and stable
[2017-04-21 11:43] LABS: BASO % 0.4 %; BASO ABS # 0.04 K/uL (0-0.2); COMPLETE YES; EOS % 2.5 %; HEMATOCRIT 42.5 % (37-47); IG% 0.2 %; LYMPH % 11.2 %; LYMPH ABS # 1.11 K/uL (1.2-3.4); MEAN CELL VOLUME 92.4 fL (80-100); MEAN CORPUSCULAR HGB CONC 32.5 g/dl (32-36); MONO % 8.2 %; NEUT % 77.5 %; PLATELET COUNT 148 K/uL (130-400); WHITE BLOOD COUNT 9.94 K/uL (4.8-10.8)
[2017-04-21 11:46] LABS: BUN/CREATININE RATIO 14.5 (10-20); C-REACTIVE PROTEIN 0.73 mg/dl (0-0.29); CALCIUM 8.9 mg/dl (8.5-10.1); CREATININE 0.89 mg/dl (0.60-1.20); MAGNESIUM 1.8 mg/dl (1.8-2.4); POTASSIUM 4.1 mmol/L (3.5-5.1)
--- NOTE | 2017-04-21 14:16 | ECHOCARDIOGRAM REPORT ---
*NOTICE TO RECEIVING [employer] This information is strictly Confidential and protected under [place] law. [place] law prohibits you from making any further disclosure of this information unless further disclosure is expressly permitted by the written consent of the person to whom it pertains or is authorized by law. A general authorization for the release of medical or other information is not sufficient for this purpose. Hospital accepts no responsibility if the information is made available to any other person, INCLUDING THE PATIENT. Interpretation Summary * Name: CHANI HERRERA Study Date: 04/21/2017 11:04 AM BP: 120/69 mmHg * Patient Location: C.2T\S\S243\S\1 HR: 60 * : 1950 (M/d/yyy) Gender: Female Height: 61 in * Age: 66 yrs Ethnicity: CA Weight: 252 lb * Ordering Physician: Satish De Souza * Referring Physician: Self, Referred * Performed By: Edyta Leija RDCS * * Reason For Study: A-Fib * BSA: 2.1 m2 * -- Conclusions -- * 1. Normal LV size, mild concentric LVH. * 2. Hyperdynamic LV. LVEF >70%. No regional wall motion abnormalities. * 3. Normal RV size and function. * 4. Severely dilated left atrium. * 5. Mild to moderate (PV 3.2 m/sec, MG 25 mmHg, JENISE 1.4 cm2) * 6. Mild to moderate AI * 7. Severe MAC with mild mitral stenosis. Trace MR. * 8. Compared with prior study on 07/26/2015: No significant changes. Procedure Details * A complete two-dimensional transthoracic echocardiogram was performed (2D, M-mode, Doppler and color flow Doppler). Left Ventricle * The left ventricle is grossly normal size. * There is mild concentric left ventricular hypertrophy. * Ejection Fraction = >70 %. * No regional wall motion abnormalities noted. Right Ventricle * The right ventricle is grossly normal size. * There is normal right ventricular wall thickness. * The right ventricular systolic function is normal as assessed by tricuspid annular plane systolic excursion (TAPSE) (normal >1.5 cm). Atria * The left atrium is severely dilated. * Borderline right atrial enlargement. * No ASD detected; PFO is not assessed. Mitral Valve * There is severe mitral annular calcification. * There is mild mitral stenosis. * MV mean PG 4.0 * There is trace mitral regurgitation. Tricuspid Valve * The tricuspid valve anatomy is normal. * Significant tricuspid regurgitation is absent. Aortic Valve * The aortic valve is not well visualized. * Mild to moderate valvular aortic stenosis. * PV 3.2 m/sec, MG 25 mmHg, JENISE 1.4 cm2 * Mild to moderate aortic regurgitation. Pulmonic Valve * The pulmonary valve is inadequately visualized, but the Doppler data is adequate for interpretation. * There is no pulmonic valvular stenosis. * Trace pulmonic valvular regurgitation. Great Vessels * The aortic root and proximal ascending aorta are normal sized. Pericardium/Pleural * There is no pericardial effusion. Great Vessels * Normal inferior vena cava size and collapsability with sniff indicates a normal right atrial pressure of 3 mmHg MMode 2D Measurements and Calculations IVSd 1.4 cm LVIDd 5.1 cm LVIDs 3.2 cm LVPWd 1.5 cm IVS/LVPW 0.93 FS 37.0 % EDV(Teich) 122.9 ml ESV(Teich) 41.1 ml EF(Teich) 66.6 % EDV(cubed) 131.4 ml ESV(cubed) 32.9 ml EF(cubed) 75.0 % LV mass(C)d 323.0 grams LV mass(C)dI 155.0 grams/m\S\2 SV(Teich) 81.8 ml SI(Teich) 39.3 ml/m\S\2 SV(cubed) 98.5 ml SI(cubed) 47.3 ml/m\S\2 Ao root diam 3.2 cm Ao root area 7.9 cm\S\2 ACS 1.2 cm asc Aorta Diam 4.1 cm LVOT diam 2.0 cm LVOT area 3.2 cm\S\2 LVAd ap4 19.7 cm\S\2 LVLd ap4 6.6 cm EDV(MOD-sp4) 50.0 ml EDV(sp4-el) 50.3 ml LVAs ap4 11.1 cm\S\2 LVLs ap4 6.6 cm ESV(MOD-sp4) 15.4 ml ESV(sp4-el) 15.8 ml EF(MOD-sp4) 69.2 % EF(sp4-el) 68.6 % LVAd ap2 14.4 cm\S\2 LVLd ap2 6.2 cm EDV(MOD-sp2) 30.3 ml EDV(sp2-el) 28.1 ml LVAs ap2 7.6 cm\S\2 LVLs ap2 6.4 cm ESV(MOD-sp2) 8.2 ml ESV(sp2-el) 7.8 ml EF(MOD-sp2) 73.0 % EF(sp2-el) 72.4 % LVLd %diff -5.16 % EDV(MOD-bp) 38.1 ml LVLs %diff -4.14 % ESV(MOD-bp) 11.3 ml EF(MOD-bp) 70.4 % SV(MOD-sp4) 34.6 ml SI(MOD-sp4) 16.6 ml/m\S\2 SV(MOD-sp2) 22.1 ml SI(MOD-sp2) 10.6 ml/m\S\2 SV(MOD-bp) 26.8 ml SI(MOD-bp) 12.9 ml/m\S\2 SV(sp4-el) 34.5 ml SI(sp4-el) 16.6 ml/m\S\2 SV(sp2-el) 20.3 ml SI(sp2-el) 9.7 ml/m\S\2 Doppler Measurements and Calculations MV E max jose de jesus 161.2 cm/sec MV A max jose de jesus 117.6 cm/sec MV E/A 1.4 MV V2 max 154.1 cm/sec MV max PG 9.5 mmHg MV V2 mean 93.7 cm/sec MV mean PG 3.9 mmHg MV V2 VTI 54.7 cm MV P1/2t max jose de jesus 145.5 cm/sec MV P1/2t 104.0 msec MVA(P1/2t) 2.1 cm\S\2 MV dec slope 409.9 cm/sec\S\2 MV dec time 0.41 sec Ao V2 max 301.0 cm/sec Ao max PG 36.5 mmHg Ao max PG (full) 29.5 mmHg Ao V2 mean 228.0 cm/sec Ao mean PG 23.1 mmHg Ao V2 VTI 67.1 cm JENISE(V,A) 1.4 cm\S\2 JENISE(V,D) 1.4 cm\S\2 AI max jose de jesus 443.4 cm/sec AI max PG 78.7 mmHg AI dec slope 214.7 cm/sec\S\2 AI P1/2t 604.8 msec LV V1 max PG 7.1 mmHg LV V1 max 132.9 cm/sec SV(Ao) 528.7 ml SI(Ao) 253.7 ml/m\S\2 PA V2 max 111.3 cm/sec PA max PG 5.0 mmHg PA acc slope 737.7 cm/sec\S\2 PA acc time 0.13 sec TR max jose de jesus 89.5 cm/sec PA pr(Accel) 22.8 mmHg
[2017-04-21] MEDS ORDERED: FUROSEMIDE INJ 20 MG in SYRINGE 0 ML IV SCH (14:30)
[2017-04-21] MEDS: ACETAMINOPHEN 325 MG TAB PO PRN (19:30)
--- NOTE | 2017-04-21 21:25 | Hospitalist Progress Note ---
Hospitalist Progress Note Date of Service Apr 21, 2017. Subjective Pt evaluation today including: conversation w/ patient Had DCCV this AM for her rapid atrial fibrillation and feeling so much better. Remains in sinus rhythm all day, no further CP, no SOB or cough. All Other Systems: Reviewed and Negative Objective Vital Signs Date Time Temp Pulse Resp B/P (MAP) Pulse Ox O2 Delivery O2 Flow Rate FiO2 04/21/17 19:51 36.9 67 18 157/93 (114) 92 Room Air 04/21/17 16:00 Room Air 04/21/17 16:00 37.0 65 18 147/83 (104) 95 Room Air 18 04/21/17 12:00 Room Air 04/21/17 11:41 36.8 67 18 118/70 (86) 92 Room Air 04/21/17 10:03 60 16 120/69 (86) 98 Room Air 04/21/17 09:53 60 16 126/73 (90) 98 Room Air 04/21/17 09:43 60 16 117/62 (80) 98 Room Air 04/21/17 09:40 52 16 122/68 98 Nasal Cannula 4 04/21/17 09:35 52 16 145/80 98 Nasal Cannula 4 04/21/17 09:30 120 16 153/81 98 Nasal Cannula 4 04/21/17 08:00 Nasal Cannula 2.0 04/21/17 07:57 36.7 107 18 129/73 (91) 94 2.5 04/21/17 04:35 36.7 113 20 124/73 (90) 94 2.5 04/21/17 04:12 Nasal Cannula 2.0 04/20/17 23:30 37.2 126 24 146/81 93 Nasal Cannula 2.0 04/20/17 23:21 127 24 110/89 93 Nasal Cannula 4.0 04/20/17 22:31 120/97 04/20/17 22:30 139 25 04/20/17 22:22 108/79 04/20/17 22:20 134 29 04/20/17 22:11 122/92 04/20/17 22:10 155 28 04/20/17 22:02 137/85 04/20/17 22:00 129 28 04/20/17 21:51 130/88 04/20/17 21:50 131 25 92 04/20/17 21:41 128/96 9/26/17 21:40 134 27 93 04/20/17 21:35 119 24 95 04/20/17 21:34 126/80 04/20/17 21:32 04/20/17 21:30 136 29 04/20/17 21:25 123 21 92 04/20/17 21:21 120/71 04/20/17 21:20 112 23 92 04/20/17 21:15 125 15 94 04/20/17 21:11 04/20/17 21:10 117 32 95 Physical Exam General Appearance: WD/WN, no apparent distress, + obese Eyes: normal inspection, sclerae normal ENT: hearing grossly normal Neck: trachea midline Respiratory/Chest: no respiratory distress, no accessory muscle use, + decreased breath sounds (at right base), + wheezing (faint on right upper and middle lung coronado) Cardiovascular: regular rate, rhythm, + systolic murmur (3/6 at left sternal border) Abdomen: normal bowel sounds, non tender, soft (and obese) Extremities: + swelling (2+ pitting edema legs bilat to knees) Neurologic/Psychiatric: alert, normal mood/affect, oriented x 3 Skin: normal color, warm/dry, no rash Laboratory Results Last 24 Hours Test 04/20/17 23:14 04/21/17 07:23 04/21/17 07:57 04/21/17 11:04 Troponin I 0.048 ng/ml 0.022 ng/ml Bedside Glucose 99 mg/dl White Blood Count 9.94 K/uL Red Blood Count 4.60 M/uL Hemoglobin 13.8 g/dL Hematocrit 42.5 % Mean Corpuscular Volume 92.4 fL Mean Corpuscular Hemoglobin 30.0 pg Mean Corpuscular Hemoglobin Concent 32.5 g/dl Platelet Count 148 K/uL Mean Platelet Volume 10.0 fL Neutrophils (%) (Auto) 77.5 % Lymphocytes (%) (Auto) 11.2 % Monocytes (%) (Auto) 8.2 % Eosinophils (%) (Auto) 2.5 % Basophils (%) (Auto) 0.4 % Neutrophils # (Auto) 7.70 K/uL Lymphocytes # (Auto) 1.11 K/uL Monocytes # (Auto) 0.82 K/uL Eosinophils # (Auto) 0.25 K/uL Basophils # (Auto) 0.04 K/uL RDW Standard Deviation 50.2 fL RDW Coefficient of Variation 14.8 % Immature Granulocyte % (Auto) 0.2 % Immature Granulocyte # (Auto) 0.02 K/uL Sodium Level 142 mmol/L Potassium Level 4.1 mmol/L Chloride Level 107 mmol/L Carbon Dioxide Level 27 mmol/L Anion Gap 8.0 mmol/L Blood Urea Nitrogen 13 mg/dl Creatinine 0.89 mg/dl Est Creatinine Clear Calc Drug Dose 72.1 ml/min Estimated GFR () 77.7 Estimated GFR (Non- 67.1 BUN/Creatinine Ratio 14.5 Random Glucose 103 mg/dl Calcium Level 8.9 mg/dl Magnesium Level 1.8 mg/dl C-Reactive Protein 0.73 mg/dl Procalcitonin < 0.05 ng/ml Test 04/21/17 11:19 04/21/17 16:21 04/21/17 20:29 Bedside Glucose 102 mg/dl 101 mg/dl 116 mg/dl Assessment and Plan 66 y/o F Hx paroxysmal AF with h/o ablation 08/2016, HTN, hypothyroidism, DMII, morbidly obesity, and asthma. Pt developed chest discomfort with minimal SOB - denies n/v, diaphoresis. Admits to feeling anxious. On arrival to the ER initial EKG revealed AF/RVR with rate of 180 and a LBBB which appears to be rate -dependent. She responded only partially to an initial dose of Cardizem with a rate reduction to approximately 120. She continued to c/o chest discomfort. Troponin bumped slightly up to peak 0.048 but then back down again. CXR with pulm edema 1) Atrial fibrillation with RVR ,Acute on chronic diastolic heart failure, Elevated troponin/demand ischemia,Moderate aortic stenosis/rlgg-au-odaekjsz AI, Mild to moderate mitral stenosis, Hypertension- -Underwent DCCV this AM and now in sinus rhythm -continue increased dose amiodarone 200mg bid -continue Eliquis 5mg bid -continue Imdur -was given IV lasix x 1 this AM and will start daily po lasix 20mg daily (she had not taken this for a few months) -repeat CXR in AM -follow lytes -Appreciate Cardiology management 2) Hypothyroidism - TSH WNL - cont Synthroid 3) DMII - placed on SS, holding metformin. Last HgbA1C in our system years ago -check HgbA1C 4)Asthma-continue home inhalers, no acute issues Full code - Eliquis anticoagulation Dispo- to home hopefully tomorrow
[2017-04-22 04:45] VITALS: BP 151/90; PULSE 67; TEMP 36.7; O2SAT 97
[2017-04-22] MEDS: LEVOTHYROXINE 112 MCG TAB PO SCH (05:58)
[2017-04-22] MEDS: ACETAMINOPHEN 325 MG TAB PO PRN (06:01)
[2017-04-22 06:56] LABS: BASO % 0.7 %; BASO ABS # 0.04 K/uL (0-0.2); COMPLETE YES; EOS % 3.7 %; HEMATOCRIT 40.1 % (37-47); IG% 0.2 %; LYMPH % 15.8 %; LYMPH ABS # 0.89 K/uL (1.2-3.4); MEAN CELL VOLUME 91.1 fL (80-100); MEAN CORPUSCULAR HGB CONC 32.9 g/dl (32-36); MEAN PLATELET VOLUME 10.3 fL (7.4-10.4); MONO % 8.9 %; NEUT % 70.7 %; PLATELET COUNT 113 K/uL (130-400); WHITE BLOOD COUNT 5.63 K/uL (4.8-10.8)
[2017-04-22] MEDS: INSULIN ASPART 100 UNITS/ML 3 ML PEN SC SCH (07:00)
[2017-04-22 07:22] LABS: BUN/CREATININE RATIO 17.1 (10-20); CALCIUM 8.8 mg/dl (8.5-10.1); CREATININE 0.93 mg/dl (0.60-1.20); POTASSIUM 3.9 mmol/L (3.5-5.1)
--- NOTE | 2017-04-22 07:32 | DIAGNOSTIC IMAGING REPORT ---
CHEST ONE VIEW PORTABLE CLINICAL HISTORY: 66 years-old Female presenting with f/u pulm edema. TECHNIQUE: Portable semiupright AP view of the chest was obtained. COMPARISON: 04/20/2017. FINDINGS: Cardiac silhouette remains enlarged. Overall decreased prominence of interstitial lung markings. Significant interval decrease in bibasilar opacities. No large effusion or pneumothorax. Osseous structures normal. Upper abdomen normal. IMPRESSION: 1. Cardiomegaly with interval resolution of pulmonary edema and vascular congestion. Electronically signed by: Ephraim Mera M.D. 04/22/2017 7:24 AM Dictated Date/Time: 04/22/2017 7:23 AM
[2017-04-22 07:43] LABS: ESTIMATED AVERAGE GLUCOSE 114 mg/dl; HA1C FLAG Normal (Normal)
[2017-04-22] MEDS: LORATADINE 10 MG TAB PO SCH (07:57)
[2017-04-22] MEDS: DOCUSATE SODIUM 100 MG CAP PO SCH (07:57)
[2017-04-22] MEDS: MAGNESIUM OXIDE 400 MG TAB PO SCH (07:58)
[2017-04-22] MEDS: ISOSORBIDE MONONITRATE 30 MG TABCR PO SCH (07:58)
[2017-04-22] MEDS: APIXABAN 2.5 MG TAB PO SCH (07:58)
[2017-04-22] MEDS: AMIODARONE 200 MG TAB PO SCH (07:59)
[2017-04-22] MEDS: BUDESONIDE/FORMOTEROL FUMARATE 160/4.5 60 PUFFS/INHALER INH SCH (07:59)
[2017-04-22 08:00] VITALS: BP 134/84; PULSE 74; TEMP 36.6; O2SAT 93
[2017-04-22] MEDS ORDERED: COUGH DROP (SUGAR FREE) LOZ 24 LOZ/1 BOX ONE (08:04)
[2017-04-22] MEDS ORDERED: POTASSIUM CHLORIDE 10 MEQ TABCR PO ONE (08:15)
[2017-04-22] MEDS ORDERED: FUROSEMIDE 20 MG TAB PO SCH (09:00)
--- NOTE | 2017-04-22 09:54 | Cardiology Follow-Up ---
Subjective Subjective Date of Service: Apr 22, 2017. Pt evaluation today including: conversation w/ patient, physical exam, chart review, lab review, review of studies, review of inpatient medication list Additional Details: No chest pain, palpitations or shortness of breath. Nasal congestion, cough, headache this morning. Tele - remains in sinus rhythm. Problem List Medical Problems: (1) Acute chest pain Status: Acute (2) Anticoagulated Status: Acute (3) Anticoagulated Status: Acute (4) Atrial fibrillation with rapid ventricular response Status: Acute (5) Bronchitis Status: Acute (6) Dyspnea Status: Acute (7) Exertional chest pain Status: Acute (8) Hypoxia Status: Acute (9) Precordial chest pain Status: Acute (10) Symptomatic anemia Status: Acute Review of Systems Constitutional: No fever Eyes: No worsening of vision ENT: + nasal symptoms Respiratory: + cough Cardiac: No chest pain Abdomen: No pain, No nausea Heme: No abnormal bleeding/bruising Endo: + fatigue Skin: No rash Objective Vital Signs Last Vital Signs Documentation Date Time Temp Pulse Resp B/P (MAP) Pulse Ox O2 Delivery O2 Flow Rate FiO2 04/22/17 08:00 Room Air 04/22/17 04:45 36.7 67 20 151/90 (110) 97 2.0 Physical Exam: General Appearance: no apparent distress, + obese ENT: hearing grossly normal Neck: trachea midline Respiratory/Chest: lungs clear (crackles improved), no respiratory distress, no accessory muscle use Cardiovascular: regular rate, rhythm, + systolic murmur (3/6 at left sternal border) Abdomen: normal bowel sounds, non tender, soft (and obese) Extremities: + swelling (trace edema bilaterally) Neurologic/Psychiatric: alert, normal mood/affect, oriented x 3 Skin: normal color, warm/dry, no rash Lymphatic: no adenopathy Assessment and Plan 1. Atrial fibrillation with RVR 2. Acute on chronic diastolic heart failure 3. Elevated troponin 4. Nonsevere valvular heart disease - Mild to moderate /AI/Mild MS 5. Hypertension 6. Diabetes 7. URI symptoms 8. Thrombocytopenia Patient status post external cardioversion yesterday -- remains in sinus rhythm on BID amiodarone Improved congestion on exam/xray. Echo reviewed -- stable valvular heart disease. -- Continue BID amiodarone for now -- Continue Apixaban 5 mg BID -- Home on 20mg PO lasix -- Resume home antihypertensives. -- Follow-up with me in 1 month -- Will arrange for repeat follow-up with [facility] in [place] for discussion of ?repeat AF ablation. Medications: Current Inpatient Medications Medications (Trade) Dose Ordered Sig/Deepthi Route Start Time Stop Time Status Last Admin Dose Admin Budesonide/ Formoterol Fumarate (Symbicort 160/ 4.5 Inh) 2 puffs BID INH 04/21/17 09:00 05/21/17 08:59 04/22/17 07:59 2 PUFFS Docusate Sodium (coLACE CAP) 100 mg QAM PO 04/21/17 09:00 05/21/17 08:59 04/22/17 07:57 100 MG Isosorbide Mononitrate (Imdur Ext Rel Tab) 30 mg QAM PO 04/21/17 09:00 05/21/17 08:59 04/22/17 07:58 30 MG Levothyroxine Sodium (Synthroid Tab) 112 mcg DAILYBB PO 04/21/17 06:00 05/21/17 06:59 04/22/17 05:58 112 MCG Loratadine (Claritin Tab) 10 mg QAM PO 04/21/17 09:00 05/21/17 08:59 04/22/17 07:57 10 MG Lorazepam (Ativan Tab) 1 mg QID PRN PO 04/20/17 22:30 05/20/17 22:29 Magnesium Oxide (Mag-Ox Tab) 400 mg DAILY PO 04/21/17 09:00 05/21/17 08:59 04/22/17 07:58 400 MG Tramadol HCl (Ultram Tab) 50 mg DAILY PRN PO 04/20/17 22:30 05/20/17 22:29 Apixaban (Eliquis Tab) 5 mg BID PO 04/21/17 09:00 05/21/17 08:59 04/22/17 07:58 5 MG Insulin Aspart (novoLOG ASPART) SLIDING SCALE G... ACHS SC 04/21/17 07:00 05/21/17 06:59 Amiodarone HCl (Cordarone Tab) 200 mg BID PO 04/21/17 09:00 05/21/17 08:59 04/22/17 07:59 200 MG Acetaminophen (Tylenol Tab) 650 mg Q4H PRN PO 04/20/17 22:45 05/20/17 22:44 04/22/17 06:01 650 MG Al Hydrox/Mg Hydrox/Simethicone (Maalox Max Susp) 15 ml Q4H PRN PO 04/20/17 22:45 05/20/17 22:44 Magnesium Hydroxide (Milk Of Magnesia Susp) 30 ml Q12H PRN PO 04/20/17 22:45 05/20/17 22:44 Ondansetron HCl (Zofran Inj) 4 mg Q6H PRN IV 04/20/17 22:45 05/20/17 22:44 Nitroglycerin (Nitrostat Tab) 0.4 mg UD PRN SL 04/20/17 22:45 05/20/17 22:44 Morphine Sulfate (MoRPHine SULFATE INJ) 2 mg Q30M PRN IV 04/20/17 22:45 05/04/17 22:44 Polyethylene (Miralax Powder Packet) 17 gm DAILY PRN PO 04/20/17 22:45 05/20/17 22:44 Glucose (Glucose 40% Gel) 15-30 GRAMS 15 GRAMS... UD PRN PO 04/20/17 23:30 05/20/17 23:29 Glucose (Glucose Chew Tab) 4-8 Tablets 4 Tabl... UD PRN PO 04/20/17 23:30 05/20/17 23:29 Dextrose (Dextrose 50% 50ML Syringe) 25-50ML OF 50% DW IV FOR... UD PRN IV 04/20/17 23:30 05/20/17 23:29 Glucagon (Glucagon Inj) 1 mg UD PRN SQ 04/20/17 23:30 05/20/17 23:29 Diltiazem HCl 125 mg/Dextrose 125 ml @ 0 mls/hr Q0M PRN IV 04/21/17 00:30 05/21/17 00:29 Furosemide (Lasix Tab) 20 mg QAM PO 04/22/17 09:00 05/22/17 08:59 04/22/17 07:58 20 MG Lab Results: 04/22/17 06:42 Red Blood Count 4.40, Mean Corpuscular Volume 91.1, Mean Corpuscular Hemoglobin 30.0, Mean Corpuscular Hemoglobin Concent 32.9, Mean Platelet Volume 10.3, Neutrophils (%) (Auto) 70.7, Lymphocytes (%) (Auto) 15.8, Monocytes (%) (Auto) 8.9, Eosinophils (%) (Auto) 3.7, Basophils (%) (Auto) 0.7, Neutrophils # (Auto) 3.98, Lymphocytes # (Auto) 0.89, Monocytes # (Auto) 0.50, Eosinophils # (Auto) 0.21, Basophils # (Auto) 0.04 04/22/17 06:42 Test 04/21/17 11:04 04/21/17 20:29 04/22/17 06:42 C-Reactive Protein 0.73 mg/dl (0-0.29) Procalcitonin < 0.05 ng/ml (0-0.5) Bedside Glucose 116 mg/dl (70-90) White Blood Count 5.63 K/uL (4.8-10.8) Red Blood Count 4.40 M/uL (4.2-5.4) Hemoglobin 13.2 g/dL (12.0-16.0) Hematocrit 40.1 % (37-47) Mean Corpuscular Volume 91.1 fL (80-100) Mean Corpuscular Hemoglobin 30.0 pg (25-34) Mean Corpuscular Hemoglobin Concent 32.9 g/dl (32-36) Platelet Count 113 K/uL (130-400) Mean Platelet Volume 10.3 fL (7.4-10.4) Neutrophils (%) (Auto) 70.7 % Lymphocytes (%) (Auto) 15.8 % Monocytes (%) (Auto) 8.9 % Eosinophils (%) (Auto) 3.7 % Basophils (%) (Auto) 0.7 % Neutrophils # (Auto) 3.98 K/uL (1.4-6.5) Lymphocytes # (Auto) 0.89 K/uL (1.2-3.4) Monocytes # (Auto) 0.50 K/uL (0.11-0.59) Eosinophils # (Auto) 0.21 K/uL (0-0.5) Basophils # (Auto) 0.04 K/uL (0-0.2) RDW Standard Deviation 49.1 fL (36.4-46.3) RDW Coefficient of Variation 14.5 % (11.5-14.5) Immature Granulocyte % (Auto) 0.2 % Immature Granulocyte # (Auto) 0.01 K/uL (0.00-0.02) Anion Gap 5.0 mmol/L (3-11) Est Creatinine Clear Calc Drug Dose 67.5 ml/min Estimated GFR () 73.7 Estimated GFR (Non- 63.6 BUN/Creatinine Ratio 17.1 (10-20) Estimated Average Glucose 114 mg/dl Hemoglobin A1c 5.6 % (4.5-5.6) Calcium Level 8.8 mg/dl (8.5-10.1) Magnesium Level 2.0 mg/dl (1.8-2.4) Date/Time Source Procedure Growth Status 04/21/17 15:10 Nasal MRSA DNA Surveillance Screen - Final Specimen Negative for MRSA by DNA Probe Complete
[2017-04-22 11:13] VITALS: BP 127/75; PULSE 67; TEMP 37; O2SAT 95
[2017-04-22] MEDS ORDERED: POTA8CAP6 PO (14:55)
[2017-04-22] MEDS ORDERED: LSX20 PO (14:55)
[2017-04-22] MEDS ORDERED: CRD200 PO (14:55)
--- NOTE | 2017-04-22 15:00 | Discharge Instructions ---
Discharge Instructions Date of Service Apr 22, 2017. Admission Reason for Admission: Atrial Fibrilation With Rvr, Chest Pain Discharge Discharge Diagnosis / Problem: Rapid atrial fibrillation Discharge Goals Goal(s): Improve disease control, Diagnostic testing, Therapeutic intervention Activity Recommendations Activity Limitations: resume your previous activity Exercise/Sports Limitations: gradually increase as tolerated . Instructions / Follow-Up Instructions / Follow-Up You were admitted with rapid atrial fibrillation and had an electric cardioversion to revert you back to a regular rhythm. Your amiodarone was increased to twice daily, and you were placed on lasix and potassium once daily for a diuretic along with potassium replacement. Please follow up with Dr. De Souza in 1 month as scheduled. You may need to be evaluated for another ablation. Please follow up with your PCP within 1-2 weeks as well. Call 911 and go to the Emergency Room if: * You have tightness or pain in your chest that does not go away with rest or Nitroglycerin * You are very short of breath even with rest Call your doctor if any of the following symptoms or problems start or get worse: * Shortness of breath or difficulty breathing * Wake up at night short of breath * Chest pain * Cough * Swelling of your hands, fee, or legs * More fatigued or tired with your normal activity * Palpitations - sudden fast heart beats WEIGHT * Weigh yourself every morning after using the bathroom. * Use the same scale. * Wear the same amount of clothing. * Write your weight down on your chart. * Call your doctor if you gain more than 2-3 pounds in 1-2 days. MEDICATIONS * Use this discharge instruction sheet for instructions. * Take your medications at the time your doctor ordered. * Do not skip a dose of your medicines. * If you miss a dose of medicine, take as soon as possible, but DO NOT DOUBLE A DOSE. * Read your medicine information when you get home. * Know all of the side effects of your medicine. * Call your doctor's office if you have any side effects. * Be sure all of your doctors know what medicine and herbs you take (including cold, flu, and herbal medicine). * Pain Medicine: If you do not get relief from your pain, please call your doctor for help. Take the following with you to your follow-up doctor appointments: * Weight Chart * Medication List * List of questions Do not drink excessive alcohol, beer or wine. Current Hospital Diet Patient's current hospital diet: AHA Diet (Heart Healthy), Diabetes Type 2 Diet Discharge Diet Recommended Diet: Diabetes Type 2 Diet Fluid Restriction: 1800 ml (7 cups) Procedures Procedures Performed: ECHO Pending Studies Studies pending at discharge: no Laboratory Results Hemoglobin A1c Test 04/22/17 06:42 Range/Units Estimated Average Glucose 114 mg/dl Hemoglobin A1c 5.6 4.5-5.6 % Medical Emergencies . Who to Call and When: Medical Emergencies: If at any time you feel your situation is an emergency, please call 911 immediately. . Non-Emergent Contact Non-Emergency issues call your: Primary Care Provider, Hotel Attendant Call Non-Emergent contact if: you have any medication questions you have chest pain, worsening shortness of breath, weight gain. . . "Provider Documentation" section prepared by Angelic Banegas. . VTE Core Measure Inpt VTE Proph given/why not?: Other Anticoagulation
[2017-04-22 15:01] VITALS: BP 127/75; PULSE 67; TEMP 37; O2SAT 95
--- NOTE | 2017-04-22 22:54 | Discharge Summary ---
Discharge Summary Date of Service Apr 22, 2017. Discharge Summary Admission Date: Apr 20, 2017 at 22:40 Discharge Date: Apr 22, 2017 Discharge Disposition: Home Principal Diagnosis: Rapid atrial fibrillation Problems/Secondary Diagnoses: Paroxysmal AF with h/o ablation 08/2016 HTN Hypothyroidism DMII Morbid obesity Asthma Rate-related LBBB Acute on chronic diastolic CHF Elevated troponin/demand ischemia Moderate aortic stenosis [id number]-[id number] AI Mild to moderate mitral stenosis Acute Cough Rhinitis Immunizations: Have You Had Influenza Vaccine: N/A History of Tetanus Vaccine?: Yes History of Pneumococcal: No History of Hepatitis B Vaccine: No Procedures: ECHO: 1. Normal LV size, mild concentric LVH. * 2. Hyperdynamic LV. LVEF >70%. No regional wall motion abnormalities. * 3. Normal RV size and function. * 4. Severely dilated left atrium. * 5. Mild to moderate (PV 3.2 m/sec, MG 25 mmHg, JENISE 1.4 cm2) * 6. Mild to moderate AI * 7. Severe MAC with mild mitral stenosis. Trace MR. * 8. Compared with prior study on 07/26/2015: No significant changes. CHEST ONE VIEW PORTABLE CLINICAL HISTORY: 66 years-old Female presenting with cp. TECHNIQUE: Portable upright AP view of the chest was obtained. COMPARISON: 07/24/2016. FINDINGS: Cardiac silhouette enlarged. Bibasilar opacities, new from prior. Increased prominence of interstitial lung markings. No significant change in pulmonary vascular prominence. No large pleural effusion or pneumothorax. Osseous structures normal. Upper abdomen normal. IMPRESSION: 1. Bibasilar opacities and interstitial prominence in the setting of cardiomegaly. This could represent mild pulmonary edema, aspiration, or infection. DC Cardioversion-external CHEST ONE VIEW PORTABLE CLINICAL HISTORY: 66 years-old Female presenting with f/u pulm edema. TECHNIQUE: Portable semiupright AP view of the chest was obtained. COMPARISON: 04/20/2017. FINDINGS: Cardiac silhouette remains enlarged. Overall decreased prominence of interstitial lung markings. Significant interval decrease in bibasilar opacities. No large effusion or pneumothorax. Osseous structures normal. Upper abdomen normal. IMPRESSION: 1. Cardiomegaly with interval resolution of pulmonary edema and vascular congestion. Consultations: Cardiology Medication Reconciliation New Medications: Potassium Chloride (Klor-Con Ext Rel) 8 Meq Cap 8 MEQ PO DAILY for 30 Days, #30 CAP Furosemide (Furosemide) 20 Mg Tab 20 MG PO QAM for 30 Days, #30 TAB Changed Medications: Amiodarone HCl (Amiodarone HCl) 200 Mg Tab 200 MG PO BID for 30 Days, #60 TAB (Changed from: QAM) Continued Medications: Apixaban (Eliquis) 5 Mg Tab 5 MG PO BID Ascorbic Acid (Vitamin C) 500 Mg Cap 1 CAP PO QAM Benazepril (Lotensin) 40 Mg Tab 40 MG PO QAM, TAB Biotin (Biotin 5000) 5 Mg Cap 1 CAP PO DAILY Budesonide/Formoterol Fumarate (Symbicort 160/4.5 Inhaler) 120 Puffs/ Aero 2 PUFFS PO BID, #10 Cholecalciferol (Vitamin D3) 1,000 Unit Cap 2000 UNITS PO DAILY Cyanocobalamin (Vitamin B12) 1,000 Mcg Tab 1 CAP PO DAILY Docusate Sodium (Colace) 100 Mg Cap 100 CAP PO QAM, CAP Inositol (Inositol) 500 Mg Tab Unknown Dose PO DAILY Isosorbide Mononitrate Ext Rel (Imdur Ext Rel) 30 Mg Ertab 30 MG PO QAM, TAB Levothyroxine Sodium (Synthroid) 112 Mcg Tab 112 MCG PO QAM, TAB Loratadine (Claritin) 10 Mg Tab 10 MG PO QAM Lorazepam (Ativan) 1 Mg Tab 1 MG PO QID PRN for Anxiety Magnesium Oxide (Mag-Ox) 400 Mg Tab 400 MG PO DAILY, TAB Melatonin (Melatonin Maximum Strengt) 5 Mg Tab 1 TAB PO HS, TAB Metformin HCl (Metformin HCl) 500 Mg Tab 500 MG PO BID Methylcellulose (Laxative) (Citrucel Fiber Laxative) 1 Pow Pow 1 TBS PO QAM Multivitamins/Minerals (Mvi With Minerals) Tab 1 TAB PO DAILY Probiotic Product (Probiotic) 1 Cap Cap 1 CAP PO DAILY Pyridoxine (Vitamin B6) 100 Mg Tab 100 MG PO DAILY, TAB Tramadol (Ultram) 50 Mg Tab 50-100 MG PO DAILY PRN for Pain, TAB Vitamin E (E-400) 400 Unit Cap 1 CAP PO DAILY Discharge Exam Pt started having cold symptoms last night, has a mild headache, runny nose, mild cough with clear sputum. Says she always gets a cold in the Fall this time of year. Afebrile here, no leukocytosis. Remains in NSR since her cardioversion yesterday. Cardiology saw her and said ok for discharge to home. Physical Exam General Appearance: WD/WN, no apparent distress, + obese Eyes: normal inspection, sclerae normal ENT: hearing grossly normal Neck: trachea midline Respiratory/Chest: no respiratory distress, no accessory muscle use, CTAB Cardiovascular: regular rate, rhythm, + systolic murmur (3/6 at left sternal border) Abdomen: normal bowel sounds, non tender, soft (and obese) Extremities: + swelling (trace pitting edema legs bilat to knees) Neurologic/Psychiatric: alert, normal mood/affect, oriented x 3 Skin: normal color, warm/dry, no rash Review of Systems: Constitutional: No fever, No chills Eyes: No problem reported ENT: + nasal symptoms Respiratory: + cough Cardiovascular: No chest pain Abdomen: No problem reported Musculoskeletal: No problem reported Genitourinary - Female: No problem reported Neurologic: No problem reported Psychiatric: No problem reported Endocrine: No problem reported Hematologic / Lymphatic: No problem reported Hospital Course 66 y/o F Hx paroxysmal AF with h/o ablation 08/2016, HTN, hypothyroidism, DMII, morbidly obesity, and asthma. Pt developed chest discomfort with minimal SOB - denies n/v, diaphoresis. Admits to feeling anxious. On arrival to the ER initial EKG revealed AF/RVR with rate of 180 and a LBBB which appears to be rate -dependent. She responded only partially to an initial dose of Cardizem with a rate reduction to approximately 120. She continued to c/o chest discomfort. Troponin bumped slightly up to peak 0.048 but then back down again. CXR with pulm edema 1) Atrial fibrillation with RVR ,Acute on chronic diastolic heart failure, Elevated troponin/demand ischemia,Moderate aortic stenosis/[id number] AI, Mild to moderate mitral stenosis, Hypertension- -Underwent DCCV urgently with sedation on 04/21, the AM after admission-remains in sinus rhythm since then -continue increased dose amiodarone 200mg bid upon discharge -continue Eliquis 5mg bid -continue Imdur -was given IV lasix x 1 and then started daily po lasix 20mg daily (she had not taken this for a few months) -repeat CXR showed improvement in pulm edema after diuresis -Appreciate Cardiology management-f/u with Dr. De Souza within 1 month-may need referral again for repeat ablation 2) Hypothyroidism - TSH WNL - cont Synthroid at home dose 3) DMII - placed on SSI while inpatient -restart home metformin on discharge -HgbA1C here is well controlled at 5.6% 4)Asthma-continue home inhalers, no acute issues 5) URI symptoms-started the night prior to discharge-typical viral URI symptoms -advised nasal saline rinses, tylenol for pain, supportive care -f/u with PCP Dispo- to home in good condition Total Time Spent: Greater than 30 minutes This includes examination of the patient, discharge planning, medication reconciliation, and communication with other providers. Discharge Instructions Please refer to the electronic Patient Visit Report (Discharge Instructions) for additional information. Follow-Up PCP within 1-2 weeks Cardiology within 1 month Additional Copies To Lewis Villaseñor M.D.; Satish De Souza MD
--- NOTE | 2017-04-28 08:14 | Anesthesiology Progress Note ---
Anesthesia Post Op Note Date & Time Apr 22, 2017 at 09:00 Vital Signs Pain Intensity: 0.0 Notes Mental Status: alert / awake / arousable, participated in evaluation Pt Amnestic to Procedure: Yes Nausea / Vomiting: adequately controlled Pain: adequately controlled Airway Patency, RR, SpO2: stable & adequate BP & HR: stable & adequate Hydration State: stable & adequate Anesthetic Complications: no major complications apparent This note pertains to postoperative time period after the cardioversion.
--- NOTE | 2017-04-29 07:33 | EDITING REQUIRED CODING QUERY ---
ANEMIA To promote full compliance with coding requirements relating to patient care, physician participation is requested in all cases of tire repairer uncertainty. Please assist us with the question(s) below: Dr. Zee, The record reflects the following clinical findings: HGB 9.0, start FE on discharge If these findings are indicative of anemia, please specify the known or suspected type by placing an "X" within the parenthesis (x). If other, please document type. Examples are: ( ) Acute blood loss anemia ( ) Acute postoperative anemia due to dilutional fluids ( ) Chronic blood loss anemia ( ) Iron deficient anemia ( ) Anemia, unspecified or other ( ) Other: (please specify) ( ) Unable to determine If anemia, please specify if it was ( ) POA ( ) Not POA Thank you for your time, MARIAN Woo, HEMODIALYSIS RN
== END 2017-04-22 15:25 | disposition home or self-care (01) | DRG 308 ==
LOC: C.EDB 19:33 → C.2T 22:40 → ENRESERV 22:51
PROVIDERS: ADMIT Internal Medicine; ATTEND Family Medicine
PROC: 5A2204Z Restoration of Cardiac Rhythm, Single (ICD-10-PCS; principal; 2017-04-21 09:12)
DX: I48.0 Paroxysmal atrial fibrillation (principal); I50.33 Acute on chronic diastolic (congestive) heart failure; I24.8 Other forms of acute ischemic heart disease; I13.0 Hypertensive heart and chronic kidney disease with heart failure and stage 1 through stage 4 chronic kidney disease, or unspecified chronic kidney disease; Z68.42 Body mass index [BMI] 45.0-49.9, adult; I44.7 Left bundle-branch block, unspecified; I08.0 Rheumatic disorders of both mitral and aortic valves; J06.9 Acute upper respiratory infection, unspecified; D69.6 Thrombocytopenia, unspecified; T50.1X6A Underdosing of loop [high-ceiling] diuretics, initial encounter; Z91.128 Patient's intentional underdosing of medication regimen for other reason; J45.909 Unspecified asthma, uncomplicated; I25.10 Atherosclerotic heart disease of native coronary artery without angina pectoris; E11.22 Type 2 diabetes mellitus with diabetic chronic kidney disease; N18.3 Chronic kidney disease, stage 3 (moderate); E03.9 Hypothyroidism, unspecified; E66.01 Morbid (severe) obesity due to excess calories; Z99.81 Dependence on supplemental oxygen; Z96.653 Presence of artificial knee joint, bilateral; Z79.01 Long term (current) use of anticoagulants; Z79.51 Long term (current) use of inhaled steroids; Z79.84 Long term (current) use of oral hypoglycemic drugs; Z79.891 Long term (current) use of opiate analgesic; Z79.899 Other long term (current) drug therapy

== ENCOUNTER → 2017-08-27 | Day surgery (SDC) | payer BC ==
[2017-08-27] VITALS (12 sets, daily range): BP systolic 89–179; BP diastolic 38–82; PULSE 55–79; TEMP 36.9; O2SAT 95–99; Ht 154.9 cm; Wt 109.0 kg
[~2017-08-27] VITALS: Ht 154.9 cm; Wt 109.0 kg
[~2017-08-27] MED LIST changes: -BENA1TAB19 PO; +BENA1TAB53 PO; +ETOMIDATE 2 MG/ML 20 ML VIAL IV ONE; +EpHEDrine SULFATE 50MG/5ML SYR ONE; +FENTANYL CITRATE INJ 50 MCG/1 ML 2 ML VIAL ONE; -FERR1TAB23 PO; -FURO40TA3 PO; +HEPARIN SOD (PORCINE) 1000 UNIT/ML 10 ML VIAL ONE; +LCTX PO; +LSX20 PO; +MIDAZOLAM HCL 1 MG/ML 2ML VIAL ONE; +NITROGLYCERIN/D5W 100MCG/ML 20ML SYR ONE; +NiCARDipine HCL INJ 2.5 MG/ML 10 ML AMP ONE; +PHENYLEPHRINE 100MCG/ML 5ML SYR ONE; +PROPOFOL IV EMULSION 10 MG/ML 20 ML VIAL IV ONE
--- NOTE | 2017-08-27 07:26 | History & Physical Bridge Note ---
H&P Re-Evaluation Bridge Note: I have examined the patient, reviewed the History & Physical and in the interval since the performance of the History & Physical I have noted the following changes of clinical significance: No changes noted
--- NOTE | 2017-08-27 07:27 | Pre Sedation Assessment ---
Pre Sedation Assessment General Date of Sedation: Aug 27, 2017. Review Cardiovascular: regular rate, rhythm, no edema Lungs: chest non-tender, lungs clear Pre-Sedation Airway Assessment Smoking Status: Never Smoker Hx of Sleep Apnea: No Hx of difficult intubation: No Short Thick Neck: Yes Thyro-mental Distance: > 3 Finger Breadths Oral Cavity: Dental Abnormalities Mallampati Classification: Class III ASA Classification: Class III Procedure Planning Contraindications for Sedation: None Current Medications Reviewed: Yes Notes The planned sedation has been discussed with the patient. Informed Consent was obtained. I have identified the patient, determined the appropriateness of sedation and have assessed the patient immediately prior to the procedure. All medicine(s) and interventions are by my order.
[2017-08-27 07:38] LABS: HEMATOCRIT 41.8 % (37-47); HEMOGLOBIN 13.6 g/dL (12.0-16.0); MEAN CELL VOLUME 91.9 fL (80-100); MEAN CORPUSCULAR HEMOGLOBIN 29.9 pg (25-34); MEAN PLATELET VOLUME 10.3 fL (7.4-10.4); PLATELET COUNT 110 K/uL (130-400); RED CELL DISTRIBUTION WIDTH CV 14.9 % (11.5-14.5); RED CELL DISTRIBUTION WIDTH SD 50.1 fL (36.4-46.3); WHITE BLOOD COUNT 4.22 K/uL (4.8-10.8)
[2017-08-27 07:39] LABS: MEAN CORPUSCULAR HGB CONC 32.5 g/dl (32-36)
[2017-08-27 08:00] LABS: CREATININE 1.09 mg/dl (0.60-1.20); POTASSIUM 3.9 mmol/L (3.5-5.1)
--- NOTE | 2017-08-27 08:50 | Anesthesiology Progress Note ---
Anesthesia Post Op Note Date & Time Aug 27, 2017 at 08:48 Vital Signs Pain Intensity: 0 Vital Signs Past 12 Hours Date Time Temp Pulse Resp B/P (MAP) Pulse Ox O2 Delivery O2 Flow Rate FiO2 08/27/17 08:19 61 16 136/78 (97) 98 Room Air 08/27/17 08:09 58 16 142/67 98 Nasal Cannula 4 08/27/17 08:05 58 16 135/70 98 Nasal Cannula 4 08/27/17 08:00 55 16 108/47 99 Nasal Cannula 4 08/27/17 07:55 55 16 95/38 99 Nasal Cannula 4 08/27/17 07:50 55 16 89/50 99 Nasal Cannula 4 08/27/17 07:45 60 16 130/69 99 Nasal Cannula 4 08/27/17 07:40 62 16 162/82 99 Nasal Cannula 4 08/27/17 07:37 62 16 179/70 98 Nasal Cannula 4 08/27/17 07:08 36.9 79 16 179/70 (106) 98 Room Air Notes Mental Status: alert / awake / arousable, participated in evaluation Pt Amnestic to Procedure: Yes Nausea / Vomiting: adequately controlled Pain: adequately controlled Airway Patency, RR, SpO2: stable & adequate BP & HR: stable & adequate Hydration State: stable & adequate Anesthetic Complications: no major complications apparent After AUGIE completed, patient awake and stable, then taken for her heart catheterization as scheduled.
--- NOTE | 2017-08-27 09:52 | Post Sedation Assessment ---
Post Sedation Assessment General Date of Sedation Aug 27, 2017. Vital Signs: Vital Signs Past 12 Hours Date Time Temp Pulse Resp B/P (MAP) Pulse Ox O2 Delivery O2 Flow Rate FiO2 08/27/17 09:45 63 18 147/89 (108) 95 Room Air 08/27/17 09:30 62 18 145/92 (109) 95 Room Air 08/27/17 09:12 62 18 166/92 (116) 95 Room Air 08/27/17 08:19 61 16 136/78 (97) 98 Room Air 08/27/17 08:09 58 16 142/67 98 Nasal Cannula 4 08/27/17 08:05 58 16 135/70 98 Nasal Cannula 4 08/27/17 08:00 55 16 108/47 99 Nasal Cannula 4 08/27/17 07:55 55 16 95/38 99 Nasal Cannula 4 08/27/17 07:50 55 16 89/50 99 Nasal Cannula 4 08/27/17 07:45 60 16 130/69 99 Nasal Cannula 4 08/27/17 07:40 62 16 162/82 99 Nasal Cannula 4 08/27/17 07:37 62 16 179/70 98 Nasal Cannula 4 08/27/17 07:08 36.9 79 16 179/70 (106) 98 Room Air Post Procedure Recovery Score Activity: (2) Moves 4 extremities * Respiration: (2) Deep breath/cough Circulation: (2) +/-20% PreAnes Value Consciousness: (2) Fully Awake Oxygen Saturation: (2) > 92% On Room Air Post Anesthesia Score: 10 Discharge Sedation Level of Care: Fast Track Phase II Post Sedation Plan On clinical assessment, the patient appears to have tolerated the sedation without complications. Patient is recovering as anticipated. Patient will continue to be monitored by nursing and may be discharged when sedation discharge criteria are met per below protocol. Upon Completions of procedure and additional 15 minutes continue every 5 minute vital signs and the P.A.R. score; then discharge to a Phase I or Fast Track to Phase II per the following guidelines: * Discharge Patient to appropriate Phase II area if PAR is 8 or greater or return to pre- procedure baseline. The post - procedure orders will be as directed. * If PAR score is less than 8 or not return to pre-procedure baseline then patient will follow Phase I monitoring till PAR is reached for Phase II. The Phase I may be done in procedure room or may call to secure a Phase I area. * If naloxone or flumazenil are used for reversal, hold in Phase I for an additional 60 -120 minutes before discharge to Phase II. Please call the Sedation Physician to re-evaluate and complete post-note for discharge to Phase II area. Do NOT discharge from procedure sedation or Phase 1 until post- sedation evaluation note is complete by procedure /sedation MD Sedation Discharge Instructions to be given to the patient at discharge to home.
--- NOTE | 2017-08-27 10:17 | Cardiac Catheterization ---
Procedure Note Procedure Date Aug 27, 2017. Pre-Procedure Diagnosis Valvular Disease AUC Score 7 Post-Procedure Diagnosis Mild CAD, Elevated Intracardiac Pressures Procedure(s) Performed Coronary Angiography, Left Heart Cath, Right Heart Cath Mobile Home Technician Ap Supervisor Fusing Room(s) Carlos Estimated Blood Loss 15 Medication(s) Fentanyl, Heparin, Nitroglycerin, Versed, Lidocaine 1% Summary of Findings Indication: Dyspnea on exertion/Chest tightness; Questionable moderate to severe valvular heart disease Access: 6Fr slender right antecubital vein; 6Fr slender right radial artery Catheters: 6Fr swan; [place], JR4, pigtail Findings: LM - Short, luminal irregularities LAD - Mid LAD 40% diffuse disease; distal vessel with luminal irregularities as wraps around apex. Circumflex - Large caliber vessel, mildly calcified, 20-30% proximal; 30-40% diffuse mid segment disease Ramus - Moderate caliber, tortuous, luminal irregularities RCA - Dominant, diffuse 20% disease from early-mid to distal segment; small R- PDA with luminal irregularities. RA 4 RV 47/9 PA 43/10 (26) PCW 13 LV 11 PaSat 59% AoSat 88% Darío CO/CI 4.8/2.3 Thermo CO/CI 5.8/2.8 AV - Pullback peak to peak gradient - 20.0; MG 18.5 MV - PAWP to LV MG - 10.5 Arterial Closure: TR band Summary: 1. Mild to moderate nonobstructive coronary artery disease 2. Normal left and right sided filling pressures 3. Mild pulmonary hypertension 4. Mild aortic stenosis 5. 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
--- NOTE | 2017-08-27 10:23 | Discharge Instructions ---
Discharge Instructions Procedure Procedure Date: Aug 27, 2017. Reason for Visit: Aortic Stenosis De Souza To Do. Discharge Discharge Date: Aug 27, 2017. Discharge Diagnosis: Moderate valvular heart disease Last Recorded Wt (Kilograms): 109 Anesthesia Post Anesthesia Instructions: If you have had General Anesthesia or IV Sedation: * Do not drive today. * Resume driving when surgeon permits. * Do not make important decisions or sign legal documents today. * Call surgeon for: 1. Temperature elevations greater than 101 degrees F. 2. Uncontrollable pain. 3. Excessive bleeding. 4. Persistent nausea and vomiting. 5. Medication intolerance (nausea, vomiting or rash). * For nausea and vomiting use only clear liquids such as: tea, soda, bouillon until nausea subsides, then gradually increase diet as tolerated. * If you have any concerns or questions, call your surgeon's office. If physician is unavailable and it is an emergency, call 911 or go to the nearest emergency room. Instructions Activity Recommendations: limitations as noted below Recommended Home Diet: resume previous diet Allergies: Coded Allergies: Azithromycin (Unverified Allergy, Unknown, LEUKOCYTOPLASTIC VASCULITIS, ) Povidone (Verified Allergy, Unknown, RASH, 04/20/17) NSAIDs (Verified Adverse Reaction, Mild, HIGH BP - AVOID, GASTRIC UPSET/ GI BLEEDING, 04/20/17) Adhesives (Verified Adverse Reaction, Unknown, RASH, 04/20/17) Follow Up Additional Instructions: ACTIVITY RECOMMENDATIONS: Excess manipulation of the wrist should be avoided for the next 24-48 hours. * No lifting over 2 pounds (approximately a 1/2 gallon of milk) with the utilized arm for 24 hours. * No strenuous activity such as bowling or tennis for 3 days. * Keep the site of the procedure covered with a bandage for 24 hours. *You may shower the day after the procedure. Do not take a tub bath or submerge the puncture site in water for the next 3 days. *Do not operate any motorized equipment for 3 days. SPECIAL CARE INSTRUCTIONS: The site may be slightly bruised and sore following your procedure. Should any of the following occur, contact the Dr. who performed your procedure. 1. Redness/inflammation, swelling, chills, or fever, or colored drainage at procedure site within 3-7 days after your procedure. 2. Coldness, discoloration, ongoing numbness, severe pain, or swelling. Expect mild tingling of hand and tenderness at the puncture site for up to three days. If this persists beyond three days, or other symptoms develop, notify the Dr. who performed your procedure. BLEEDING: If the procedure site on your wrist begins to bleed, do not panic 1. Place 1 or 2 fingers firmly just slightly above the insertion site to stop the bleeding. You may be able to feel your pulse as you hold pressure. 2. Lift your finger after 5 minutes to see if the bleeding has stopped. 3. Once the bleeding has stopped, gently wipe the wrist area clean with a bandage. * If the bleeding from your wrist does not stop after 10 minutes, or if there is a large amount of bleeding or spurting, call 911 (do not drive yourself to the hospital). SKIN IRRITATION: * You may experience some redness and/or swelling in the area where radiation was administered. If any skin irritation occurs, please contact your family physician. FOLLOW UP VISIT: Keep any scheduled doctor appointments. Follow-up with: Dr. De Souza in 1-2 months [facility] Recommendations: Call your doctor if: * Temperature above 101 degrees * Pain not relieved by pain medicine ordered * There is increased drainage or redness from any incision * You have any unanswered questions or concerns. Your Doctors Instructions noted above were prepared by provider Noam De Souza. Patient Signature Section: Patient Instructions Signature Page Cathy Farley Patient (or Guardian) Signature/Date: I have read and understand the instructions given to me by my caregivers. Caregiver/RN/Doctor Signature/Date: The above-named patient and/or guardian has received patient instructions on this date. + Original Patient Signature Page (only) stays with chart. Please make copy for patient.
--- NOTE | 2017-08-27 11:40 | TEE ---
*NOTICE TO RECEIVING [employer] AGENCY This information is strictly Confidential and protected under [place] law. [place] law prohibits you from making any further disclosure of this information unless further disclosure is expressly permitted by the written consent of the person to whom it pertains or is authorized by law. A general authorization for the release of medical or other information is not sufficient for this purpose. Hospital accepts no responsibility if the information is made available to any other person, INCLUDING THE PATIENT. Interpretation Summary * Name: CHANI HERRERA Study Date: 08/27/2017 07:19 AM BP: 179/70 mmHg * Patient Location: Catheterization Lab HR: 60 * : 1950 (M/d/yyyy) Gender: Female Height: 61 in * Age: 66 yrs Ethnicity: CA Weight: 240 lb * Ordering Physician: MD Satish De Souza MD * Referring Physician: MD Satish De Souza MD * Performed By: Armando Donovan RCS * * Reason For Study: Mitral Valve Stenosis \T\ Regurge * BSA: 2.0 m2 * -- Conclusions -- * 1. Normal LV size, mild concentric LVH. * 2. Normal LV systolic function. LVEF 60-65%. No regional wall motion abnormalities. * 3. Normal RV size and function. * 4. Mild biatrial enlargement * 5. Mild aortic stenosis (PV 3.2, MG 21). Moderate aortic regurgitation. * 6. Mild to moderate eccentric MR. Mild to moderate mitral stenosis (MG 3, MVA 1.4 cm2). * 7. Mild aortic atherosclerotic disease. * 8. Compared with prior AUGIE on 08/30/2015: Slight progression in , MR and MS. Procedure Details * AUGIE Probe #2 utilized for procedure. * The study was performed in Cardiac Catheterization Lab. * Time out was conducted by the physician, nurse, and technical photographer with positive identification of patient and procedure. * Informed consent for Transesophageal Echocardiogram was obtained prior to the procedure. * An intravenous line was placed. A topical anesthetic agent was used for oropharangeal anesthesia. A bite block was inserted. * Sedation performed by the anesthesia department. * The patient's vital signs, including blood pressure, heart rate, pulse oximetry and cardiac rhythm were monitored throughout the procedure . * Fentanyl 50 mcg was administered for procedural sedation. * Propofol 80 mg was administered for procedural sedation. Timeout Time - 0737 Procedure Start Time - 07 Procedure Stop Time - 08 * A 2D transesophageal echocardiogram was performed. * A 2D transesophageal echocardiogram with color flow Doppler was performed. * A 2D transesophageal echocardiogram with Doppler and color flow Doppler was performed. Left Ventricle * The left ventricle is grossly normal size. * There is mild concentric left ventricular hypertrophy. * Ejection Fraction = 60-65%. * No regional wall motion abnormalities noted. Right Ventricle * The right ventricle is grossly normal size. * The right ventricular systolic function is qualitatively normal. Atria * The left atrium is mildly dilated. * No thrombus is detected in the left atrial appendage. * The right atrium is borderline dilated. * The interatrial septum is intact with no evidence for an atrial septal defect. Mitral Valve * The mitral valve leaflets appear thickened, but open well. * There is moderate mitral annular calcification. * Fixed posterior leaflet with posteriorly directed eccentric mitral regurgitation. * There is mild to moderate mitral stenosis. * Blunted systolic flow right lower pulmonary vein. VC 0.35 cm * There is mild to moderate mitral regurgitation. * The mitral regurgitant jet is eccentrically directed. Tricuspid Valve * The tricuspid valve is not well visualized, but is grossly normal. * There is trace tricuspid regurgitation. Aortic Valve * The aortic valve is trileaflet. * Mild valvular aortic stenosis. * PV 3.18, MG 21 * Moderate aortic regurgitation. Great Vessels * The aortic root is normal size. * Mild atherosclerotic plaque(s) in the descending aorta. Pericardium * There is no pericardial effusion. Doppler Measurements and Calculations MV P1/2t max jose de jesus 120.8 cm/sec MV P1/2t 156.0 msec MVA(P1/2t) 1.4 cm\S\2 MV dec slope 226.8 cm/sec\S\2 Ao V2 max 318.4 cm/sec Ao max PG 40.5 mmHg
== END | disposition home or self-care (01) ==
LOC: C.CATH 06:23
PROVIDERS: ATTEND Internal Medicine Interventional Cardiology
DX: I25.10 Atherosclerotic heart disease of native coronary artery without angina pectoris (principal); R93.1 Abnormal findings on diagnostic imaging of heart and coronary circulation; E11.9 Type 2 diabetes mellitus without complications; I50.9 Heart failure, unspecified; I48.91 Unspecified atrial fibrillation; I11.0 Hypertensive heart disease with heart failure; E66.9 Obesity, unspecified; Z68.42 Body mass index [BMI] 45.0-49.9, adult; Z98.890 Other specified postprocedural states

== ENCOUNTER → 2017-10-25 | Outpatient (CLI) | payer BC ==
[~2017-10-25] MED LIST changes: -ETOMIDATE 2 MG/ML 20 ML VIAL IV ONE; -EpHEDrine SULFATE 50MG/5ML SYR ONE; -FENTANYL CITRATE INJ 50 MCG/1 ML 2 ML VIAL ONE; -HEPARIN SOD (PORCINE) 1000 UNIT/ML 10 ML VIAL ONE; -MIDAZOLAM HCL 1 MG/ML 2ML VIAL ONE; -NITROGLYCERIN/D5W 100MCG/ML 20ML SYR ONE; -NiCARDipine HCL INJ 2.5 MG/ML 10 ML AMP ONE; -PHENYLEPHRINE 100MCG/ML 5ML SYR ONE; -PROPOFOL IV EMULSION 10 MG/ML 20 ML VIAL IV ONE
--- NOTE | 2017-11-02 09:18 | POLYSOMNOGRAPH REPORT ---
CLINICAL DATA: The patient is a 67-year-old female with a history of nocturnal hypoxia and paroxysmal atrial fibrillation. Her [place] sleepiness scale score is elevated at 10. Her BMI is elevated at 45.72. On the evening of 10/25/2017, a home sleep apnea test was performed using the [employer]elp type 3 monitor. RECORDING RESULTS: The total recorded time was 10 hours. The patient's estimated sleep time was 10 hours. RESPIRATORY DATA: The patient had a total of 98 respiratory events including 11 obstructive apneas, 1 central apnea, and 86 hypopneas. Hypopneas were scored according to the 4% desaturation rule. The KALI was elevated at 9.8 events per hour. The maximum respiratory event was 49 seconds. These results represent mild obstructive sleep apnea. OXIMETRY DATA: The mean saturation for the night was 90%. The minimum saturation was 75%. There were 91 minutes with saturations less than 89%. HEART RATE DATA: The minimum heart rate was 46 beats per minute. The mean heart rate was 57 beats per minute. SNORING DATA: Snoring was present throughout the test. IMPRESSION: Mild obstructive sleep apnea associated with hypoxia. RECOMMENDATIONS: 1. In light of the patient's history of atrial fibrillation and nocturnal hypoxia, it would be advised that she be given a trial of nasal CPAP. This could be done either by a CPAP titration in the sleep lab or alternatively treatment with auto CPAP. 2. Weight loss is advised in light of the elevation of body mass index at 45.72. 3. It is suggested that the patient avoid sleeping in the supine position where there was typically increased respiratory events. 4. The patient should be advised of the appropriate principles of sleep hygiene including having a regular sleep-wake schedule and allowing 7.5 hours of sleep time.
== END | disposition home or self-care (01) ==
LOC: C.NEUR 10:02
PROVIDERS: ATTEND Internal Medicine Pulmonary Disease
DX: G47.33 Obstructive sleep apnea (adult) (pediatric) (principal); J45.909 Unspecified asthma, uncomplicated; G47.34 Idiopathic sleep related nonobstructive alveolar hypoventilation; I38 Endocarditis, valve unspecified; E66.01 Morbid (severe) obesity due to excess calories; Z88.1 Allergy status to other antibiotic agents; Z88.6 Allergy status to analgesic agent; Z88.8 Allergy status to other drugs, medicaments and biological substances

== ENCOUNTER → 2017-11-23 | Outpatient (CLI) | payer BC ==
--- NOTE | 2017-11-24 06:51 | PAP/PSG TECHNICIAN REPORT ---
[facility] Staffing Rn Polysomnogram Report Study name: None Report date: 11/24/2017 Study date: 11/23/2017 Referring Physician: Dr. Alejandro Lui DO Name: CHANI FARLEY Interpreting Physician: Alejandro Lui D.O. Date of : 1950 Staffing Rn: Milla Tesfaye [facility]. Sex: Female Age: 67 Study Type: PSG PAP Weight: 245 lbs Height: 67 years, Height 5' 1" BMI: 46.29 Medications: ELIQUIS 5 MG, SYMBICORT 160-4.5 MCG/ACT, LACTOBACILLUS, LORAZEPAM 1 MG, MULTI VIT, BENAZEPRIL 40 MG, ISOSORBIDE MONONITRATE 30 MG, LEVOTHYROXINE 112 MCG, AMIODARONE 200 MG, GLUCOPHAGE 500 MG, ACTEMINOPHEN 325 MG, VIT B6 100 MG, BIOTIN 5000 MG, COLACE 100 MG, FUROSEMIDE 20 MG, INOSITOL, KLOR-CON 8 MEQ, LORATIDINE 10 MG, LYSINE ACETATE 500 MG, MAGNESIUM OXIDE 400 MG, MELATONIN 10 MG, TRAMADOL 50 MG, VIT B-12 1000 MCG, VIT C 1000 MG, VIT D3 1000 UNIT, VIT E 400 UNIT, ZYRTEC Patient History 67 yr-old female here for a new CPAP treatment study. She was found to be positive for RHODA via a home sleep study. Her AHI was 9.8. She chose a Mirage FX Soft edge nasal mask size small from [employer]. The test was started on room air and 4 CMH2O. ETCO2 testing was not utilized during this study. Room 1 Parameters Monitored NPSG: E1-M2, E2-M1, Fp1-M2, Fp2-M1, F3-M2, F4-M2, F4-M1, C3-M2, C4-M2, C4-M1, O1-M2, O2-M2, O2-M1, T3-M2, T4-M1, P3-M2, P4-M1, CHIN1, CHIN2, HR, EKG, Legs, PFLOW, SNOR, FLOW, CFLOW, Tidal Volume, THOR, ABDO, SpO2, PLTH, CPRESS, ETCO2 Wave, ETCO2, pH Sleep Architecture Sleep Stages Time at Lights Off 11:04:54 PM STAGES Time (min.) TST (%) Time at Lights On 6:00:24 AM Wake 114.5 -- Total Recording Time (TRT) 415.50 min. N1 39.5 13 Total Sleep Period (TSP) 412.5 min. N2 187.0 62 Total Sleep Time (TST) 301.0min. N3 0.0 0 Awake Time 114.5 min. REM 74.5 25 Wake after Sleep Onset 111.5 min. Sleep Efficiency (SE) 72 % Sleep Onset Latency (LISA) 3.0 min. Number of Stage 1 Shifts None Awakenings 29 Stage Changes 103 Number of REM periods 2 REM 74.5 25 REM Latency 240.0 min. NREM 226.5 75 Body Position Analysis Supine Right Left Side Prone Vertical Total Sleep Time (min.) 45.8 11.5 267.5 279.00 0.0 0.0 Total Sleep Time (%) 7% 4% 89% 93 0% N/A% Total Sleep Time REM (min.) 0.0 0.0 74.5 None 0.0 0.0 Total Sleep Time NREM (min.) 22.0 11.5 193.0 None 0.0 0.0 Intermittent Wake (min.) 23.8 4.9 85.8 None 0.0 0.0 Total Sleep Period (%) 10% None None None None None Arousals Myoclonus (PLM) * Events Count Index Events Count Index Spontaneous 31 6 Events Awake (PLMW) 129 67.6 Respiratory 6 1.0 Events Asleep w/ Arousal (PLMA) 62 12.4 PLM 62 12 Events Asleep w/o Arousal (PLMS) 279 55.6 Snoring 0 0 Total Asleep 341 68.0 Total 99 20 Total 470 68 Respiratory Analysis * CA OA MA CH H RERA Total Count 0 0 0 0 33 3 33 Index 0.0 0.0 0.0 0 6.6 1 7.2 Mean Duration 0.0 0.0 0.0 0.00 16.8 14.4 16.6 Longest Duration 0.0 0.0 0.0 0.00 0.0 14.8 24.2 Respiratory Event Summary Total Supine ~Supine Right Left Prone REM NREM Apneas Count 0 0 0 0 0 N/A 0 0 Index 0.0 0 0 0.0 0.0 N/A 0 0 Hypopneas (4% Desat) Count 33 1 32 3 29 N/A 25 8 Index 6.6 2.7 7 15.7 6.5 N/A 20.1 2.1 Apneas & All Hypopneas Count 33 1 32 3 29 N/A 25 8 Index 6.6 3 7 16 7 N/A 20.1 2.1 Respiratory Events (Business Services Associate+All Hyp+RERA) Count 33 1 35 4 31 N/A 25 8 Index 7.2 3 8 20.9 7.0 N/A 20.1 2.9 Respiratory Related Arousal Count 6 1 5 2 3 N/A 0 5 Index 1.0 0 1 10 1 N/A 0 1 Snoring Analysis Supine Right Left Prone REM NREM Total Snore duration 3.1 min Snores count 0 22 101 N/A 41 82 123 Snore mean duration 1.5 Sec Snores index 0 115 23 N/A 33.0 21.7 24.5 TST with snoring (%) 1.0% Desaturation Event Summary: Minimum %SpO2 Event Count Mean/Min/Max Duration(sec.) Desaturation Index % Time In Bed > 90 15 27.2 / 11.5 / 59.8 7.4 29.7 86 - 90 40 29.8 / 8.3 / 60.0 9.0 64.7 81 - 85 7 25.1 / 16.8 / 47.8 19.0 5.4 76 - 80 0 N/A 0.0 0.3 71 - 75 0 N/A 0.0 0.0 66 - 70 0 N/A 0.0 0.0 61 - 65 0 N/A 0.0 0.0 56 - 60 0 N/A 0.0 0.0 51 - 55 0 N/A 0.0 0.0 < 50 0 N/A 0.0 0.0 Total REM NREM Awake <50% 0.0 min. 0.0 min. 0.0 min. 0.0 min. 51 - 60% 0.0 min. 0.0 min. 0.0 min. 0.0 min. 61 - 70% 0.0 min. 0.0 min. 0.0 min. 0.0 min. 71 - 80% 1.1 min. 1.1 min. 0.0 min. 0.0 min. 81 - 90% 288.6 min. 71.5 min. 192.7 min. 24.4 min. 91 - 100% 122.3 min. 1.9 min. 30.4 min. 90.0 min. Average 89 87 89 91 Minimum SpO2 78 78 84 85 Desaturation Event Index 7.8 27.4 3.2 4.7 # Desat. Events below 89% 46 34 8 4 Time(%) with Saturation below 89% 35.5 13.1 21.5 0.9 Time(min.) with Saturation below 89% 146.1 54.1 88.4 3.6 Time (mins) REM (mins) NREM (mins) % of TST SpO2 Below 90% 45 34 N11 71.0 SpO2 Below 88% 21 0 0 30 Heart Rate Analysis Min (bpm) Max (bpm) Average (bpm) Awake 50 72 58 NREM 48 68 57 REM 45 71 52 Overall 45 71 56 Supplemental O2 Values Minimum O2 level: None Value Start Time End Time Staffing Rn Comments Ms. Farley slept in the right, left and supine positions. Cardiac arrhythmias were noted (please refer to the printouts). PLMs were noted. No bruxism noted. CPAP was initiated at +4 CMH2O and up-titrated to a level of +8 CMH2O, Cflex 2. The increased to 8 CMH2O was made late due to continued hypopneas in stage REM. A Mirage FX Soft edge nasal mask size small from [employer] was used during titration. SHe did not wake up to use the restroom during the night. Ms. Farley stated that she slept well with the CPAP mask. The final report will be interpreted and signed by a sleep physician. The completed physician report will then be placed in the patient medical record. CPAP REPORT Therapy Detail Time / Page # Comment CPAP 4 cm H2O Nasal Mask Flex Pressure Relief Humidifier on 11:02:27 PM / pg. 323 CPAP 5 cm H2O Nasal Mask Flex Pressure Relief Humidifier on 12:39:23 AM / pg. 516 INCREASED FOR HYPOPNEAS AND RERAS CPAP 6 cm H2O Nasal Mask Flex Pressure Relief Humidifier on 3:11:09 AM / pg. 820 INCREASED FOR SOME HYPOPNEAS IN REM CPAP 7 cm H2O Nasal Mask Flex Pressure Relief Humidifier on 3:38:16 AM / pg. 874 INCREASED FOR MORE HYPOPNEAS IN REM CPAP 8 cm H2O Nasal Mask Flex Pressure Relief Humidifier on 5:45:02 AM / pg. 1128 INCREASED LATE FOR MORE HYPOPNEAS IN REM Therapy Event: Therapy (cm H20) 4 5 6 7 8 Total Time at Pressure (min.) 94.5 151.8 27.1 126.8 15.4 TST at Pressure (min.) 43.5 98.8 27.1 116.3 15.4 # Periods 1 1 1 1 1 Sleep Onset (min.) 3.0 0.0 0.0 0.0 0.0 REM Onset (min.) N/A 148.5 0.0 0.0 0.0 Sleep Efficiency % 46 65 100 91 100 Wakefulness (%) 54.0 34.9 0.0 8.3 0.0 Wakefulness (min.) 51.0 53.0 0.0 10.5 0.0 NREM 1 (%) 17.5 11.5 0.0 4.3 0.0 NREM 1 (min.) 16.5 17.5 0.0 5.5 0.0 NREM 2 (%) 28.6 51.4 0.0 64.7 0.0 NREM 2 (min.) 27.0 78.0 0.0 82.0 0.0 NREM 3 (%) 0.0 0.0 0.0 0.0 0.0 NREM 3 (min.) 0.0 0.0 0.0 0.0 0.0 REM (%) 0.0 2.1 100.0 22.7 100.0 REM (min.) 0.0 3.3 27.1 28.8 15.4 # Arousals 36 49 2 12 0 Arousal Index 49.7 29.8 4.4 6.2 0.0 # Snore 43 34 41 5 0 Snore Index 59.3 20.7 90.7 2.6 0.0 AHI 5.5 3.0 19.9 4.6 23.4 AHI Supine 2.7 N/A N/A N/A N/A AHI Non-Supine 8.4 3.0 19.9 4.6 23.4 NREM AHI 5.5 1.9 N/A 0.7 N/A REM AHI N/A 36.9 19.9 16.7 23.4 RDI 9.7 3.0 19.9 4.6 23.4 # Obstructive 0 0 0 0 0 # Central Ap 0 0 0 0 0 # Mixed 0 0 0 0 0 # Hypopneas 4 5 9 9 6 RERAS 3 0 0 0 0 Total Respiratory Events 7 5 9 9 6 Time Below SpO2 89.00% (min.) 2.8 71.5 23.0 35.1 10.1 Mean NREM SpO2 (%) 90 88 N/A 89 N/A Mean REM SpO2 (%) N/A 83 86 88 87 Mean Sleep SpO2 (%) 90 88 86 89 87 Min NREM SpO2 (%) 86 84 N/A 84 N/A Min REM SpO2 (%) N/A 80 78 82 82 Position Supine (min.) 22.0 0.0 0.0 0.0 0.0 Position Non-supine (min.) 21.5 98.8 27.1 116.3 15.4 LM Index Sleep 27.6 96.0 8.9 80.5 11.7 LM Index NREM 27.6 99.3 N/A 101.5 N/A LM Index REM N/A 0.0 8.9 16.7 11.7 Mean Heart Rate (bpm) 57 57 55 54 50 Min Heart Rate (bpm) 50 52 49 46 45
--- NOTE | 2017-11-27 07:28 | POLYSOMNOGRAPH REPORT ---
CLINICAL DATA: The patient is a 67-year-old female with a history of nocturnal hypoxia and paroxysmal atrial fibrillation. She has an [place] sleepiness scale score of 10. Recently, she underwent a home sleep study. The apnea hypopnea index was elevated at 9.8. Because of her history of cardiac arrhythmia, hypoxia, as well as her history of asthma and valvular heart disease, it was recommended that she be treated with nasal CPAP. This was an in-lab overnight CPAP titration study. SLEEP ARCHITECTURE: The total sleep period was 412.5 minutes. The total sleep time was 301 minutes. The sleep efficiency was modestly reduced to 72%. The sleep latency was 3 minutes. Wake after sleep onset was elevated at 111.5 minutes. The REM latency was prolonged to 240 minutes. There were 2 REM periods during the night. Sleep consisted of stage N1 13%, stage N2 62%, stage N3 0%, stage REM 25%. AROUSAL DATA: The patient had a total of 99 arousals including 31 spontaneous arousals, 6 respiratory arousals, 62 PLM arousals, and the arousal index was 20. PLM DATA: The patient had a total of 341 periodic limb movements of sleep for a PLM index of 68. There were 62 arousals, associated with limb movements for a PLM arousal index of 12.4. EKG: At the start of her studies, she was in sinus rhythm. There was some degree of irregularity that could be PACs or even sinus arrhythmia at times. Later on during the night, there appeared to be areas of probable atrial fibrillation, although it was not definite. The heart rates ranged from 45-71 beats per minute with an average heart rate of 56 beats per minute. RESPIRATORY DATA: The patient's respiratory events were treated with nasal CPAP, which was titrated to a final pressure of 8 cm. She had a total of 33 respiratory events, all hypopneas. Hypopneas were scored according to the 4% desaturation rule. The mean duration of the hypopneas was 16.8 seconds. There were also 3 RERAs. The apnea hypopnea index was 6.6. OXIMETRY DATA: The average saturation for the night was 89%. The minimum saturation was 78%. There was a total of 146.1 minutes with saturations less than 89%. The desaturations were occurring even at the final pressure. SUPERINTENDENT DRIVERS COMMENTS: The patient slept in the right, left, and supine positions. Cardiac arrhythmias were noted. PLMs were noted. No bruxism noted. CPAP was initiated at 4 cm and up titrated to a level of 8 cm with C-Flex 2. The increased to 8 cm was made late due to continued hypopneas and stage REM. A Mirage FX soft edge nasal mask size small from [employer] was used during titration. She did not awaken to use the restroom during the night. She stated that she slept well with the CPAP mask. IMPRESSION: 1. Obstructive sleep apnea. 2. Periodic limb movement disorder. 3. Nocturnal hypoxia. COMMENTS: During the first part of the night, the patient had difficulty maintaining sleep. She had been very anxious about wearing CPAP. After approximately 1:30 a.m., her sleep became much more consolidated. When she had REM sleep, she was having increased hypopneas. She had a second REM episode just prior to wake up in the morning. Thus at the final pressure, she still had continued events. It would appear that 8 cm would not be sufficient. She also had persistent hypoxia. In light of the fact she is still having events at the final pressure, initiation with auto CPAP would be advised. RECOMMENDATIONS: 1. It is advised that the patient be started on auto CPAP with a minimum pressure of 6 and a maximum of 16. 2. It is advised that 2 liters of oxygen be instilled into the CPAP. 3. The patient has an elevated body mass index of 46.29. A weight reduction program is advised. 4. No treatment is necessary for the underlying limb movement disorder at the present time. The sleep apnea should be treated first and then assess clinically.
== END | disposition home or self-care (01) ==
LOC: C.NEUR 20:00
PROVIDERS: ATTEND Internal Medicine Pulmonary Disease
DX: G47.33 Obstructive sleep apnea (adult) (pediatric) (principal); G47.61 Periodic limb movement disorder; G47.34 Idiopathic sleep related nonobstructive alveolar hypoventilation

== ENCOUNTER → 2018-03-16 | Outpatient (CLI) | payer BC ==
[~2018-03-16] MED LIST changes: -APIX1TAB3 PO; +ASPI-232 PO; +CMD5 PO; +LPT40 PO; +LVNIS120 SQ
--- NOTE | 2018-03-16 13:37 | DIAGNOSTIC IMAGING REPORT ---
MRI OF THE BRAIN WITHOUT IV CONTRAST CLINICAL HISTORY: Memory loss. Depression. COMPARISON STUDY: CT angiogram of the brain dated 12/13/2017. TECHNIQUE: MRI of the brain was performed utilizing various T1 and T2-weighted sequences in the axial, sagittal, and coronal planes. IV contrast was not administered for this examination. FINDINGS: Brain parenchyma: There is minimal subcortical and periventricular microangiopathic disease. The brain parenchyma is otherwise normal in appearance. There is no hemorrhage or mass effect. There is no restricted diffusion to suggest acute ischemia. Fiore-white matter differentiation is preserved. No extra-axial fluid collection is seen. The cerebellar tonsils are normal in configuration. Ventricles, sulci, and cisterns: Normal in configuration. Pituitary and sella: Partially empty sella is incidentally noted. Intracranial vasculature: Normal flow voids are maintained at the skull base. Orbits: The bony orbits are grossly intact. Orbital contents are normal in appearance. Sinuses and mastoids: The paranasal sinuses are clear. There is a small right mastoid effusion. Calvarium: Unremarkable. Cervical cord: Partially visualized cervical spinal cord is normal in morphology and signal intensity. IMPRESSION: No acute intracranial abnormality. Electronically signed by: Isaiah Urbina M.D. 03/16/2018 1:36 PM Dictated Date/Time: 03/16/2018 1:27 PM
== END | disposition home or self-care (01) ==
LOC: C.MRI 12:32
PROVIDERS: ATTEND Student in an Organized Health Care Education/Training Program
DX: R41.3 Other amnesia (principal); F32.9 Major depressive disorder, single episode, unspecified; Z88.1 Allergy status to other antibiotic agents; Z88.6 Allergy status to analgesic agent; Z88.8 Allergy status to other drugs, medicaments and biological substances

== ENCOUNTER 2020-07-18 11:04 | Inpatient (IN) ==
[2020-07-18] MEDS ORDERED: SODIUM CHLORIDE 0.9% 500 ML IV SCH (11:45)
[2020-07-18 11:54] LABS: Basophils # (auto) 0.03 K/uL (0-0.2); Basophils % (auto) 0.4 %; Eosinophils # (auto) 0.16 K/uL (0-0.5); Eosinophils % (auto) 1.9 %; Hematocrit (blood only) 45.2 % (37-47); Hemoglobin 14.5 g/dL (12.0-16.0); Immature Granulocytes # (auto) 0.01 K/uL (0.00-0.02); Immature Granulocytes % (auto) 0.1 %; Lymphocytes # (auto) 1.34 K/uL (1.2-3.4); Lymphocytes % (auto) 16.3 %; Mean Corpuscular Hemoglobin 29.2 pg (25-34); Mean Corpuscular Hgb Conc 32.1 g/dL (32-36); Mean Corpuscular Volume 90.9 fL (80-100); Monocytes # (auto) 0.53 K/uL (0.11-0.59); Monocytes % (auto) 6.5 %; Neutrophils # (auto) 6.14 K/uL (1.4-6.5); Neutrophils % (auto) 74.8 %; Platelet Count 178 K/uL (130-400); RDW Coefficient of Variation 14.3 % (11.5-14.5); RDW Standard Deviation 47.9 fL (36.4-46.3); Red Blood Count 4.97 M/uL (4.2-5.4); White Blood Count 8.21 K/uL (4.8-10.8)
[2020-07-18] MEDS ORDERED: dilTIAZem HCl 5 MG/ML 5 ML VIAL IV STA ×2 (12:00→16:13)
[2020-07-18 12:01] LABS: Albumin Level 3.8 gm/dl (3.4-5.0); BUN Creatinine Ratio 28.4 (10-20); Calcium 9.2 mg/dl (8.5-10.1); Creatinine Clr Calc Pharmacy 40.4 ml/min; Est GFR (African American) 54.1; Est GFR (Non-African American) 46.7
--- NOTE | 2020-07-18 12:03 | XRay Report ---
XR chest 1V portable HISTORY: 69 years-old Female Chest Pain acute atypical chest pain COMPARISON: Chest radiograph 02/21/2020, chest CT 04/28/2018 TECHNIQUE: Portable AP view of the chest FINDINGS: Cardiac silhouette is enlarged, unchanged. Pulmonary arterial hypertension. Extensive calcifications of the mitral annulus are redemonstrated. No pneumothorax, pleural effusion, airspace consolidation o r overt pulmonary edema. There is mild chronic interstitial coarsening. Degenerative changes of the s houlders and spine. IMPRESSION: 1. No acute process. 2. Cardiomegaly with pulmonary artery hypertension. ACT 112: Negative or not required by law. The above report was generated using voice recognition software. It may contain grammatical, syntax o r spelling errors. Electronically signed by: Kelvin Johnson M.D. 07/18/2020 12:02 PM
[2020-07-18 12:06] LABS: INR 1.1 (0.9-1.1); Partial Thromboplastin Time 29.2 Seconds (21.0-31.0); Prothrombin Time 11.9 Seconds (9.0-12.0)
[2020-07-18 12:12] LABS: Albumin Globulin Ratio 1.1 (0.9-2); Bilirubin,Total 0.5 mg/dl (0.2-1); Globulin 3.5 gm/dl (2.5-4.0); Total Protein 7.3 gm/dl (6.4-8.2); Troponin I 0.393 ng/ml (0-0.045)
--- NOTE | 2020-07-18 12:21 | Electrocardiogram Report ---
Test Reason : Blood Pressure : / mmHG Vent. Rate : 146 BPM Atrial Rate : 153 BPM P-R Int : 000 ms QRS Dur : 132 ms QT Int : 336 ms P-R-T Axes : 000 -65 093 degrees QTc Int : 523 ms Atrial fibrillation with rapid ventricular response Right bundle branch block Left anterior fascicular block Voltage criteria for left ventricular hypertrophy Abnormal ECG When compared with ECG of 21-FEB-2020 12:48, HR has increased by 88 bpm Atrial fibrillation has replaced Sinus rhythm Confirmed by Jonathan Jarvis ([id number]) on 07/18/2020 12:21:34 PM Referred By: Noam De Souza Confirmed By:Jonathan Jarvis
[2020-07-18] MEDS ORDERED: STAT IV Infusion **Titration per Protocol STA (12:41)
[2020-07-18] MEDS: dilTIAZem HCL 125 MG in DEXTROSE 5% 100 ML IV SCH ×2 (13:02→21:06)
--- NOTE | 2020-07-18 13:16 | History & Physical Report ---
Date of Service July 18, 2020 Assessment & Plan (1) Atrial fibrillation with RVR: Continue diltiazem infusion Heparin no bolus allowed to uptrend in case of elective cardioversion 81 mg aspirin daily enteric-coated Elevated troponin secondary to rapid ventricular response (2) Diabetes mellitus, type 2: Check A1c Recent weight loss improving blood sugars (3) manager intermediate current use of anticoagulants with INR goal of 2.0-3.0: Heparin infusion (4) Aortic stenosis: (5) Asthma, mild persistent: (6) RHODA (obstructive sleep apnea): (7) Hx of intracranial hemorrhage: Greater than 6 months prior -Patient agreeable with heparin at this time -Defer long-term anticoagulation management to Dr. Islas as an outpatient (8) Hx of gastrointestinal hemorrhage: Patient agreeable with 81 mg aspirin while in the hospital -Pepcid for additional GI protection Admission and Anticipated Discharge Date Admission Date: July 18, 2020 Anticipated date of discharge: 07/20/20 History of Present Illness Chief Complaint: Palpitations Primary Care Provider: Lewis Villaseñor MD Patient is a 69-year-old female with past medical history of mild persistent asthma, obstructive sleep apnea, atrial fibrillation paroxysmal, chronic diastolic heart failure NYHA class II, moderate to severe aortic stenosis, moderate aortic insufficiency, moderate mitral stenosis, history of intraparenchymal hemorrhage on 12/2019, right retinal artery occlusion on November 2017 cardioembolic while on DOAC, peripheral vascular disease status post left carotid endarterectomy on 03/2018 who presents today with a feeling of palpitations Patient's allergies have been reviewed which include his Zithromax, amiodarone, povidone, NSAIDs, adhesives, there is reported intolerance to beta-blockers and calcium channel blockers as she does not like how she feels while being on them. However, she is willing to do any medical treatments as required as an inpatient. Patient does feel when she goes in and out of atrial fibrillation this latest episode started approximately midnight woke her up out of sleep because of the rapid heart rate. She proceeded to the hospital for further evaluation after contacting Dr. Islas's office. I discussed the case with Dr. Islas, we will attempt to avoid amiodarone continue diltiazem for rate control, we will initiate heparin, no bolus for anticoagulation in case she needs electrical cardioversion and then this can be discussed at a later date regarding continuation. Patient has a history of gastrointestinal bleeding I will start her on baby aspirin for cardiovascular protection and a PPI as she is agreeable and at least in the short-term with the acute hospitalization. Allergies Allergy/AdvReac Type Severity Reaction Status Date / Time azithromycin [From Zithromax] Allergy Severe LEUKOCYTOPLASTIC Verified 07/18/20 12:07 VASCULITIS amiodarone Allergy Mild TREMORS, Verified 07/18/20 12:07 UNSTEADY GAIT, PHOTOSENSITIVITY, AGITATED povidone Allergy Unknown RASH Verified 07/18/20 12:07 NSAIDS (Non-Steroidal AdvReac Mild HIGH BP - Verified 07/18/20 12:07 Anti-Inflamma AVOID, GASTRIC UPSET/GI BLEEDING adhesive AdvReac Unknown RASH Verified 07/18/20 12:07 Home Medications Medication Instructions Recorded Confirmed Type ascorbic acid (vitamin C) [Vitamin 1,000 mg PO QAM 04/08/18 07/18/20 History C] lysine 500 mg PO QAM 04/08/18 07/18/20 History metformin 500 mg PO BIDM 04/08/18 07/18/20 History cetirizine 10 mg tablet 10 mg PO DAILY PRN tab 04/13/19 07/18/20 History cholecalciferol (vitamin D3) 25 5,000 units PO PM tab 04/13/19 07/18/20 History mcg (1,000 unit) tablet cyanocobalamin (vitamin B-12) 1,000 mcg PO PM tab 04/13/19 07/18/20 History 1,000 mcg tablet lorazepam 1 mg tablet 1 mg PO QID PRN tab 04/13/19 05/17/20 History magnesium oxide 400 mg (241.3 mg 400 mg PO PM tab 04/13/19 07/18/20 History magnesium) tablet melatonin 10 mg capsule 10 mg PO HS cap 04/13/19 05/17/20 History pyridoxine (vitamin B6) 100 mg 50 mg PO PM tab 04/13/19 07/18/20 History tablet vitamin E succinate 400 unit tablet 400 units PO QAM tab 04/13/19 07/18/20 History albuterol sulfate 90 mcg/actuation 2 puffs INH Q4H PRN #18 gm 08/30/19 07/18/20 Rx aerosol inhaler docusate sodium 100 mg PO PM 12/26/19 07/18/20 History dronedarone 400 mg PO BIDM 12/26/19 07/18/20 History fluticasone propionate 2 sprays INTNAS DAILY PRN 12/26/19 07/18/20 History Bifidobacterium infantis [Align] 4 mg PO PM 02/21/20 07/18/20 History benazepril 10 mg tablet 10 mg PO DAILY 05/17/20 07/18/20 History atorvastatin 40 mg PO BID 07/18/20 07/18/20 History Past Med/Surg History Medical History (Updated 07/18/20 @ 13:55 by Homer French, ) Anxiety Aortic stenosis Asthma Asthma, mild persistent Atrial fibrillation FOLLOWS WITH DR. ISLAS. TAKES MULTAQ BID CARDIOVERSION (SUMMER 2017)-SUCCESSFUL Chronic kidney disease STAGE 3 Depression Diabetes mellitus, type 2 NIDDM Hypothyroidism Mild intermittent asthma Mitral regurgitation RHODA (obstructive sleep apnea) Osteoarthritis Sleep apnea CPAP Transient retinal arterial occlusion, right Surgical History H/O hemorrhoidectomy History of cardiac cath [facility] 2017 NO STENTS History of cardiac radiofrequency ablation [facility], 2016 History of cardioversion SUMMER 2017 AT [facility] History of CEA (carotid endarterectomy) History of colonoscopy History of dilatation and curettage History of excision of pilonidal cyst ~35 years ago History of revision of total replacement of right knee joint History of total knee replacement BILATERAL Family History Other Family history non-contributory Social History Smoking Status: Never smoker Second Hand Exposure: No; Hx Alcohol Use: No Hx Substance Use: No Preferred Language: [place] Communication Ability: Effective Visual Impairment: No Limitations Construction Sales Representative Required: Yes and No Beliefs That Will Affect Care: None Current Living Situation: Spouse Feels Safe at Home: Yes Assistive Devices: Walker Review of Systems Review of Systems: All systems reviewed & are unremarkable except as noted in HPI & below Palpitations, no trey chest pain, no dizziness, no lightheadedness does feel when she goes in and out of atrial fibrillation Physical Exam Physical Exam: General: Alert. nontoxic. Skin: Warm, dry, Head: Atraumatic Ears, nose, mouth and throat: airway patent Cardiovascular: Normal peripheral perfusion S1-S2, irregularly irregular and tachycardic 4 out of 6 systolic ejection murmur Respiratory: no respiratory distress, lungs clear to auscultation bilaterally Gastrointestinal: Non distended Musculoskeletal: No deformity Results & Data Results & Data ([facility]) Vital Signs (Past 12 Hours) Vital Signs Temp Pulse Resp BP Pulse Ox 07/18/20 12:31 132 H 21 94 07/18/20 12:30 130 H 21 109/75 94 07/18/20 12:01 135 H 17 97 07/18/20 12:00 138 H 16 112/64 96 07/18/20 11:41 96 07/18/20 11:31 151 H 19 97 07/18/20 11:30 133 H 14 99/73 L 96 07/18/20 11:18 158 H 13 99 07/18/20 11:17 164 H 14 121/54 L 96 07/18/20 11:16 160 H 13 07/18/20 11:06 36.9 C 140 H 16 100 Code Status & VTE Plan Code Status Full code VTE Prophylaxis Plan VTE Prophylaxis will be ordered: Yes Critical Care Time Critical Care Time: Yes Total Critical Care Time: 45 Supervising Physician Co-Signing Physician Notes Patient critically ill due to rapid ventricular response requiring IV medications and dose adjustment, I gave 20 mg as an IV bolus. PG Care Time/CCT Total # of Minutes Spent Total Time Spent with Patient: Total time spent is greater than 50% in coordination of care (as documented) at patient's floor/unit and/or counseling patient: Critical Care Time: Yes Total Critical Care Time: 45 Coding Level of Care Code None Diagnoses Atrial fibrillation with RVR I48.91 Diabetes mellitus, type 2 E11.59 Diabetes mellitus residential insulin use: without terminal press operator use Diabetes mellitus complication status: with circulatory complication Diabetes mellitus complication detail: with other circulatory complications manager intermediate current use of anticoagulants with INR goal of 2.0-3.0 Z79.01 Aortic stenosis I35.0 Cardiac valve disease etiology: nonrheumatic Asthma, mild persistent J45.30 Asthma complication type: uncomplicated RHODA (obstructive sleep apnea) G47.33 Hx of intracranial hemorrhage Z86.79 Hx of gastrointestinal hemorrhage Z87.19 Additional Codes Critical Care Time - Critical Care Time: Yes ([id number]) Time Spent (min) 45 [place] [id number] (1) Asthma, mild persistent Asthma complication type: uncomplicated Qualified Code(s): J45.30 - Mild persistent asthma, uncomplicated (2) Diabetes mellitus, type 2 Diabetes mellitus residential insulin use: without terminal press operator use Diabetes mellitus complication status: with circulatory complication Diabetes mellitus complication detail: with other circulatory complications Qualified Code(s): E11.59 - Type 2 diabetes mellitus with other circulatory complications (3) Aortic stenosis Cardiac valve disease etiology: nonrheumatic Qualified Code(s): I35.0 - Nonrheumatic aortic (valve) stenosis
--- NOTE | 2020-07-18 13:29 | Emergency Department Note ---
History of Present Illness General Chief complaint: Arrhythmia/Palpitations Stated complaint: irregular heartbeat Time Seen by Provider: 07/18/20 11:20 Source: patient Mode of arrival: ambulatory Limitations: no limitations History of Present Illness Maximum Pain Intensity: 0 This patient comes in after having a rapid heart rate. She says her heart rate is been erratic its going high and low for the last couple weeks. Off-and-on. She said starting last night it went high and started being in the 140s and just will not go down. She does have a history of A. fib and has been here in the past for rapid A. fib. She has not tolerated amiodarone in the past and has been started on Multaq. She has not missed any dosages. She is also on ARNOLDO inhibitor that she said they decreased her dose because she was having low blood pressure at times. She is followed by Dr. De Souza for this. She has no chest pain she feels slightly short of breath at times. No nausea or vomiting. No Covid exposure. She was tested several months ago and was negative has been without symptoms. She is not on any blood thinners as she had a brain hemorrhage about a year ago so they stopped her Coumadin. She has no numbness or weakness. No blood or melena stool. No fever or chills Home Medications Medication Instructions Recorded Confirmed Type ascorbic acid (vitamin C) [Vitamin 1,000 mg PO QAM 04/08/18 07/18/20 History C] lysine 500 mg PO QAM 04/08/18 07/18/20 History metformin 500 mg PO BIDM 04/08/18 07/18/20 History cetirizine 10 mg tablet 10 mg PO DAILY PRN tab 04/13/19 07/18/20 History cholecalciferol (vitamin D3) 25 5,000 units PO PM tab 04/13/19 07/18/20 History mcg (1,000 unit) tablet cyanocobalamin (vitamin B-12) 1,000 mcg PO PM tab 04/13/19 07/18/20 History 1,000 mcg tablet lorazepam 1 mg tablet 1 mg PO QID PRN tab 04/13/19 05/17/20 History magnesium oxide 400 mg (241.3 mg 400 mg PO PM tab 04/13/19 07/18/20 History magnesium) tablet melatonin 10 mg capsule 10 mg PO HS cap 04/13/19 05/17/20 History pyridoxine (vitamin B6) 100 mg 50 mg PO PM tab 04/13/19 07/18/20 History tablet vitamin E succinate 400 unit tablet 400 units PO QAM tab 04/13/19 07/18/20 History albuterol sulfate 90 mcg/actuation 2 puffs INH Q4H PRN #18 gm 08/30/19 07/18/20 Rx aerosol inhaler docusate sodium 100 mg PO PM 12/26/19 07/18/20 History dronedarone 400 mg PO BIDM 12/26/19 07/18/20 History fluticasone propionate 2 sprays INTNAS DAILY PRN 12/26/19 07/18/20 History Bifidobacterium infantis [Align] 4 mg PO PM 02/21/20 07/18/20 History benazepril 10 mg tablet 10 mg PO DAILY 05/17/20 07/18/20 History atorvastatin 40 mg PO BID 07/18/20 07/18/20 History Allergies Allergy/AdvReac Type Severity Reaction Status Date / Time azithromycin [From Zithromax] Allergy Severe LEUKOCYTOPLASTIC Verified 07/18/20 12:07 VASCULITIS amiodarone Allergy Mild TREMORS, Verified 07/18/20 12:07 UNSTEADY GAIT, PHOTOSENSITIVITY, AGITATED povidone Allergy Unknown RASH Verified 07/18/20 12:07 NSAIDS (Non-Steroidal AdvReac Mild HIGH BP - Verified 07/18/20 12:07 Anti-Inflamma AVOID, GASTRIC UPSET/GI BLEEDING adhesive AdvReac Unknown RASH Verified 07/18/20 12:07 Past Med/Surg History Medical History Anxiety Aortic stenosis Asthma Asthma, mild persistent Atrial fibrillation FOLLOWS WITH DR. DE SOUZA. TAKES MULTAQ BID CARDIOVERSION (SUMMER 2017)-SUCCESSFUL Chronic kidney disease STAGE 3 Depression Diabetes mellitus, type 2 NIDDM Hypothyroidism Mild intermittent asthma Mitral regurgitation RHODA (obstructive sleep apnea) Osteoarthritis Sleep apnea CPAP Transient retinal arterial occlusion, right Surgical History H/O hemorrhoidectomy History of cardiac cath [facility] 2017 NO STENTS History of cardiac radiofrequency ablation [facility], 2017 History of cardioversion SUMMER 2017 AT [facility] History of CEA (carotid endarterectomy) History of colonoscopy History of dilatation and curettage History of excision of pilonidal cyst ~35 years ago History of revision of total replacement of right knee joint History of total knee replacement BILATERAL Family History Other Family history non-contributory Social History Smoking Status: Never smoker Second Hand Exposure: No; Hx Alcohol Use: No Hx Substance Use: No Preferred Language: Samoan Communication Ability: Effective Visual Impairment: No Limitations Human Resources Benefits Assistant Required: Yes and No Beliefs That Will Affect Care: None Current Living Situation: Spouse Feels Safe at Home: Yes Assistive Devices: Walker Review of Systems A total of 10 systems reviewed and were otherwise negative Physical Exam Vital Signs Vital Signs - 24 hr 07/18/20 11:06 07/18/20 11:16 07/18/20 11:17 Temperature 36.9 C Temperature Source Oral Pulse Rate 140 H 160 H 164 H Pulse Rate from SpO2 Sensor 151 H Pulse Rhythm Regular Pulse Strength Normal Respiratory Rate 16 13 14 Respiratory Effort / Characteristics Non-Labored Respiratory Depth Normal Respiratory Pattern Regular Blood Pressure 121/54 L Blood Pressure Mean 82 Blood Pressure Position Sitting Pulse Oximetry 100 96 Oxygen Delivery Method Room Air Sepsis Recent Fever Within 48 Hours No Sepsis New/Unexplained Change in Mental Status N/A Sepsis Action Taken by Nursing No Action Required 07/18/20 11:18 07/18/20 11:30 07/18/20 11:31 Temperature Temperature Source Pulse Rate 158 H 133 H 151 H Pulse Rate from SpO2 Sensor 145 H 119 H 152 H Pulse Rhythm Pulse Strength Respiratory Rate 13 14 19 Respiratory Effort / Characteristics Respiratory Depth Respiratory Pattern Blood Pressure 99/73 L Blood Pressure Mean 79 Blood Pressure Position Pulse Oximetry 99 96 97 Oxygen Delivery Method Sepsis Recent Fever Within 48 Hours Sepsis New/Unexplained Change in Mental Status Sepsis Action Taken by Nursing 07/18/20 11:41 07/18/20 12:00 07/18/20 12:01 Temperature Temperature Source Pulse Rate 138 H 135 H Pulse Rate from SpO2 Sensor 136 H 117 H Pulse Rhythm Pulse Strength Respiratory Rate 16 17 Respiratory Effort / Characteristics Respiratory Depth Respiratory Pattern Blood Pressure 112/64 Blood Pressure Mean 66 Blood Pressure Position Pulse Oximetry 96 96 97 Oxygen Delivery Method Room Air Sepsis Recent Fever Within 48 Hours Sepsis New/Unexplained Change in Mental Status Sepsis Action Taken by Nursing 07/18/20 12:30 07/18/20 12:31 07/18/20 13:00 Temperature Temperature Source Pulse Rate 130 H 132 H 132 H Pulse Rate from SpO2 Sensor 121 H 118 H 137 H Pulse Rhythm Pulse Strength Respiratory Rate 21 21 14 Respiratory Effort / Characteristics Respiratory Depth Respiratory Pattern Blood Pressure 109/75 110/80 Blood Pressure Mean 81 89 Blood Pressure Position Pulse Oximetry 94 94 96 Oxygen Delivery Method Sepsis Recent Fever Within 48 Hours Sepsis New/Unexplained Change in Mental Status Sepsis Action Taken by Nursing 07/18/20 13:01 07/18/20 13:30 07/18/20 13:31 Temperature Temperature Source Pulse Rate 120 H 138 H 145 H Pulse Rate from SpO2 Sensor 122 H 157 H 134 H Pulse Rhythm Pulse Strength Respiratory Rate 13 22 18 Respiratory Effort / Characteristics Respiratory Depth Respiratory Pattern Blood Pressure 100/73 Blood Pressure Mean 78 Blood Pressure Position Pulse Oximetry 96 96 97 Oxygen Delivery Method Sepsis Recent Fever Within 48 Hours Sepsis New/Unexplained Change in Mental Status Sepsis Action Taken by Nursing 07/18/20 14:00 07/18/20 14:30 07/18/20 14:31 Temperature Temperature Source Pulse Rate 120 H 134 H 133 H Pulse Rate from SpO2 Sensor 124 H 115 H 130 H Pulse Rhythm Pulse Strength Respiratory Rate 20 18 21 Respiratory Effort / Characteristics Respiratory Depth Respiratory Pattern Blood Pressure 95/75 L 122/81 Blood Pressure Mean 79 104 Blood Pressure Position Pulse Oximetry 95 90 95 Oxygen Delivery Method Sepsis Recent Fever Within 48 Hours Sepsis New/Unexplained Change in Mental Status Sepsis Action Taken by Nursing General: Well developed well nourished middle-age female who appears in no acute distress, breathing comfortably on room air. Normal speech HEENT: Normal cephalic atraumatic. Pupils are equal round and reactive to light. Extraocular movements are intact. Oropharynx is pink with moist mucous membranes. No swelling of the mouth lips or tongue. Neck: Supple with a midline trachea. No meningeal signs or stiffness, no JVD or bruits. No Stridor. Chest: Clear to auscultation bilaterally. No wheezes or rhonchi. No increased work of breathing. Heart: Tachycardic and irregularly irregular with atrial fibrillation seen on the monitor with a wide-complex as well. She does have systolic heart murmurs 3/6 Abdomen: Soft nontender, nondistended without rebound guarding or rigidity. Extremities: No cyanosis clubbing or edema. No calf tenderness or assymetry Spine/Back. Non tender to palpation. No CVA tenderness Skin: Good turgor without rashes. Neurologic exam: Cranial nerves two through 12 are intact. Motor and sensation are intact and symmetrical throughout. Course Administered Medications Diltiazem HCl 125 mg/ Dextrose 125 mls @ 5 mls/hr IV .Q24H BARB; Protocol Stop: 08/17/20 12:44 Last Titration: 07/18/20 13:45 Dose: 10 mg/hr, 10 mls/hr Documented by: [id number] Cosigned by: [id number] Titration: 07/18/20 13:34 Dose: 8 mg/hr, 8 mls/hr Documented by: [id number] Cosigned by: [id number] Admin: 07/18/20 13:02 Dose: 5 mg/hr, 5 mls/hr Documented by: [id number] Cosigned by: [id number] Discontinued Medications Diltiazem HCl (Diltiazem Hcl 5 Mg/Ml 5 Ml Vial) 10 mg IV NOW STA Stop: 07/18/20 12:01 Last Admin: 07/18/20 12:08 Dose: 10 mg Documented by: [id number] Cosigned by: [id number] Sodium Chloride (Nss) 500 mls @ 999 mls/hr IV .Q31M BARB Stop: 07/18/20 12:15 Last Infusion: 07/18/20 13:16 Dose: 0 mls/hr Documented by: [id number] Admin: 07/18/20 12:08 Dose: 999 mls/hr Documented by: [id number] Miscellaneous (Stat Iv Infusion Titration Per Protocol) 1 ea N/A NOW STA Stop: 07/18/20 12:42 Last Admin: 07/18/20 13:03 Dose: 1 ea Documented by: [id number] Critical Care Time Critical Care Time: Yes Total Critical Care Time: 30 Due to the patient's rapid A. fib and need for IV medications and drip as well as consultation and frequent reassessment, I have personally spent greater than 30 minutes of critical care time in the direct management of this patient. This includes bedside care, interpretation of diagnostic studies, and testing, discussion with consultants, patient, and family members, and other required patient management activities. This 30 minutes is in excess of all separately billable procedures. Medical Decision Making Differential Diagnosis Rapid A. fib, cardiac ischemia, Covid, CHF, electrolyte or metabolic abnormality, PE, neurologic disease Medical Records Attestation: I reviewed the patient's medical records. Home Medications Current Medication List: was personally reviewed by me Laboratory Data Attestation: I reviewed the patient's lab results. Result diagrams: 07/18/20 11:18 07/18/20 11:18 Lab Results 07/18/20 07/18/20 07/18/20 Range/Units 11:18 11:18 11:18 WBC 8.21 (4.8-10.8) K/uL RBC 4.97 (4.2-5.4) M/uL Hgb 14.5 (12.0-16.0) g/dL Hct 45.2 (37-47) % MCV 90.9 (80-100) fL MCH 29.2 (25-34) pg MCHC 32.1 (32-36) g/dL RDW Std Deviation 47.9 H (36.4-46.3) fL RDW Coeff of Dru 14.3 (11.5-14.5) % Plt Count 178 (130-400) K/uL MPV 11.0 H (7.4-10.4) fL Immature Gran % (Auto) 0.1 % Neut % (Auto) 74.8 % Lymph % (Auto) 16.3 % Mckinley % (Auto) 6.5 % Eos % (Auto) 1.9 % Baso % (Auto) 0.4 % Neut # (Auto) 6.14 (1.4-6.5) K/uL Lymph # (Auto) 1.34 (1.2-3.4) K/uL Mck[place]ley # (Auto) 0.53 (0.11-0.59) K/uL Eos # (Auto) 0.16 (0-0.5) K/uL Baso # (Auto) 0.03 (0-0.2) K/uL Immature Gran # (Auto) 0.01 (0.00-0.02) K/uL PT 11.9 (9.0-12.0) Seconds INR 1.1 (0.9-1.1) APTT 29.2 (21.0-31.0) Seconds PTT Ratio 1.0 Sodium 142 (136-145) mmol/L Potassium 4.0 (3.5-5.1) mmol/L Chloride 109 H (98-107) mmol/L Carbon Dioxide 27 (21-32) mmol/L Anion Gap 6.0 (3-11) BUN 34 H (7-18) mg/dl Creatinine 1.18 (0.6-1.2) mg/dl Est Cr Clr Drug Dosing 40.4 ml/min Est GFR ( Amer) 54.1 Est GFR (Non-Af Amer) 46.7 BUN/Creatinine Ratio 28.4 H (10-20) Glucose 105 H (70-99) mg/dl Calcium 9.2 (8.5-10.1) mg/dl Magnesium 2.0 (1.8-2.4) mg/dl Total Bilirubin 0.5 (0.2-1) mg/dl AST 19 (15-37) U/L ALT 25 (12-78) U/L Alkaline Phosphatase 97 (45-117) U/L Troponin I 0.393 H* (0-0.045) ng/ml Total Protein 7.3 (6.4-8.2) gm/dl Albumin 3.8 (3.4-5.0) gm/dl Globulin 3.5 (2.5-4.0) gm/dl Albumin/Globulin Ratio 1.1 (0.9-2) Lipase 113 (73-393) U/L SARS-CoV-2 Ag (Rapid) (Negative) 07/18/20 Range/Units Unknown WBC (4.8-10.8) K/uL RBC (4.2-5.4) M/uL Hgb (12.0-16.0) g/dL Hct (37-47) % MCV (80-100) fL MCH (25-34) pg MCHC (32-36) g/dL RDW Std Deviation (36.4-46.3) fL RDW Coeff of Dru (11.5-14.5) % Plt Count (130-400) K/uL MPV (7.4-10.4) fL Immature Gran % (Auto) % Neut % (Auto) % Lymph % (Auto) % Mck[place] % (Auto) % Eos % (Auto) % Baso % (Auto) % Neut # (Auto) (1.4-6.5) K/uL Lymph # (Auto) (1.2-3.4) K/uL Mck[place]ley # (Auto) (0.11-0.59) K/uL Eos # (Auto) (0-0.5) K/uL Baso # (Auto) (0-0.2) K/uL Immature Gran # (Auto) (0.00-0.02) K/uL PT (9.0-12.0) Seconds INR (0.9-1.1) APTT (21.0-31.0) Seconds PTT Ratio Sodium (136-145) mmol/L Potassium (3.5-5.1) mmol/L Chloride (98-107) mmol/L Carbon Dioxide (21-32) mmol/L Anion Gap (3-11) BUN (7-18) mg/dl Creatinine (0.6-1.2) mg/dl Est Cr Clr Drug Dosing ml/min Est GFR ( Amer) Est GFR (Non-Af Amer) BUN/Creatinine Ratio (10-20) Glucose (70-99) mg/dl Calcium (8.5-10.1) mg/dl Magnesium (1.8-2.4) mg/dl Total Bilirubin (0.2-1) mg/dl AST (15-37) U/L ALT (12-78) U/L Alkaline Phosphatase (45-117) U/L Troponin I (0-0.045) ng/ml Total Protein (6.4-8.2) gm/dl Albumin (3.4-5.0) gm/dl Globulin (2.5-4.0) gm/dl Albumin/Globulin Ratio (0.9-2) Lipase (73-393) U/L SARS-CoV-2 Ag (Rapid) Negative (Negative) Imaging Data My Impression: Chest x-ray: No acute infiltrate, failure, pneumothorax upon my interpretation Radiologist's Impression: XR chest 1V portable HISTORY: 69 years-old Female Chest Pain acute atypical chest pain COMPARISON: Chest radiograph 02/21/2020, chest CT 04/28/2018 TECHNIQUE: Portable AP view of the chest FINDINGS: Cardiac silhouette is enlarged, unchanged. Pulmonary arterial hypertension. Extensive calcifications of the mitral annulus are redemonstrated. No pneumothorax, pleural effusion, airspace consolidation or overt pulmonary edema. There is mild chronic interstitial coarsening. Degenerative changes of the shoulders and spine. IMPRESSION: 1. No acute process. 2. Cardiomegaly with pulmonary artery hypertension. ECG Data Attestation: I personally reviewed and interpreted this ECG as follows: Indication: + palpitations Rate (beats per minute): 146 Rhythm: + atrial fibrillation ECG Intervals/blocks: + Right Bundle branch block and + Normal QT ECG [place]: + Left axis deviation ECG Findings: + Other (Nonspecific T wave abnormality) Comparison ECG Date: from (02/10/20) Change: the following changes noted (Atrial fibrillation is now present) MDM Narrative This patient comes in as described above. The nurse came and gave me the EKG as her heart rate was fast and I saw the patient promptly. She was noted to be in rapid A. fib. She appears in no distress. Her heart rate was about 150. Looking at her EKG she has underlying bundle branch block as well. I reviewed her records. She has been sensitive to several medications in the past she had diltiazem in the past. I gave her 10 mg diltiazem IV. I did tolerate diltiazem and her heart rate came down to about 110s-120s and she seemed to be doing better and I started on a drip. I did discuss the case also with Dr. 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 her troponin is mildly elevated and I do think she needs to come in. she is having no chest pain or shortness of breath at present. She is not anticoagulated due to history of intracranial hemorrhage. She has no significant electrolyte or metabolic abnormalities. I discussed case with Dr. French who will see her in the ER for admission. Impression & Plan Atrial fibrillation with RVR, Elevated troponin Discharge Plan Visit Data Chief Complaint: Arrhythmia/Palpitations Stated Complaint: irregular heartbeat ED Provider: Homer Bustos Discharge Problem: Atrial fibrillation with RVR, Elevated troponin Forms Stand Alone Forms: My [facility] We Prescriptions Prescriptions: No Action benazepril 10 mg tablet 10 mg PO DAILY RF: 0 cetirizine 10 mg tablet 10 mg PO DAILY PRN (Reason: Allergy Symptoms) RF: 0 cholecalciferol (vitamin D3) 1,000 unit (25 mcg) tablet 5,000 units PO PM RF: 0 cyanocobalamin (vitamin B-12) 1,000 mcg tablet 1,000 mcg PO PM RF: 0 lorazepam 1 mg tablet 1 mg PO QID PRN (Reason: Anxiety) RF: 0 magnesium oxide 400 mg (241.3 mg magnesium) tablet 400 mg PO PM RF: 0 melatonin 10 mg capsule 10 mg PO HS RF: 0 pyridoxine (vitamin B6) 100 mg tablet 50 mg PO PM RF: 0 vitamin E succinate 400 unit tablet 400 units PO QAM RF: 0 albuterol sulfate [Ventolin HFA] 90 mcg/actuation HFA aerosol inhaler 2 puffs INH Q4H PRN (Reason: shortness of breath or wheezing) Qty: 18 RF: 5 atorvastatin 40 mg tablet 40 mg PO BID RF: 0 metformin 500 mg Tablet 500 mg PO BIDM RF: 0 ascorbic acid (vitamin C) [Vitamin C] 1,000 mg Tablet 1,000 mg PO QAM RF: 0 lysine 500 mg Tablet 500 mg PO QAM RF: 0 docusate sodium 100 mg capsule 100 mg PO PM RF: 0 fluticasone propionate 50 mcg/actuation spray,suspension 2 sprays INTNAS DAILY PRN (Reason: Congestion) RF: 0 dronedarone 400 mg tablet 400 mg PO BIDM RF: 0 Align 4 mg Capsule 4 mg PO PM RF: 0
[2020-07-18] MEDS ORDERED: CETIRIZINE HCL 10 MG TABLET PO PRN (15:54)
[2020-07-18] MEDS ORDERED: FLUTICASONE PROPIONATE NA SPR 16 GM BTL NAE PRN (15:54)
[2020-07-18] MEDS ORDERED: ALBUTEROL HFA 8 GM INHALER INH PRN (15:54)
[2020-07-18] MEDS ORDERED: Heparin IV Standard *NO* Bolus IV SCH (15:54)
[2020-07-18] MEDS ORDERED: ASPIRIN 81 MG ECTAB PO STA (16:11)
[2020-07-18] MEDS: HEPARIN SODIUM/DEXTROSE 25,000 UNITS/500 ML BAG IV SCH (16:50)
[2020-07-18] MEDS: DRONEDARONE HCL 400 MG TAB PO SCH (17:06)
[2020-07-18] MEDS: metFORMIN HCL 500 MG TAB PO SCH (17:06)
[2020-07-18] MEDS: ATORVASTATIN 40 MG TAB PO SCH (20:41)
[2020-07-18] MEDS: CYANOCOBALAMIN 500 MCG TABLET (VITAMIN B-12) PO SCH (20:41)
[2020-07-18] MEDS: CHOLECALCIFEROL 1,000 UNITS 25 MCG TAB PO SCH (20:41)
[2020-07-18] MEDS: MAGNESIUM OXIDE 400 MG TAB PO SCH (20:41)
[2020-07-18] MEDS: PYRIDOXINE HCL 50 MG TAB PO SCH (20:41)
[2020-07-18] MEDS: DOCUSATE SODIUM 100 MG CAP PO SCH (20:42)
[2020-07-18 23:23] LABS: Partial Thromboplastin Ratio 2.1
[2020-07-18 23:25] LABS: Partial Thromboplastin Time 58.4 Seconds (21.0-31.0)
[2020-07-19] MEDS: dilTIAZem HCL 125 MG in DEXTROSE 5% 100 ML IV SCH ×2 (04:32→13:06)
[2020-07-19 04:33] LABS: Basophils # (auto) 0.02 K/uL (0-0.2); Basophils % (auto) 0.3 %; Eosinophils # (auto) 0.23 K/uL (0-0.5); Eosinophils % (auto) 3.3 %; Hematocrit (blood only) 39.6 % (37-47); Immature Granulocytes # (auto) 0.01 K/uL (0.00-0.02); Immature Granulocytes % (auto) 0.1 %; Lymphocytes # (auto) 1.72 K/uL (1.2-3.4); Lymphocytes % (auto) 24.9 %; Mean Corpuscular Hemoglobin 29.5 pg (25-34); Mean Corpuscular Hgb Conc 32.8 g/dL (32-36); Mean Corpuscular Volume 89.8 fL (80-100); Mean Platelet Volume 10.6 fL (7.4-10.4); Monocytes # (auto) 0.45 K/uL (0.11-0.59); Monocytes % (auto) 6.5 %; Neutrophils # (auto) 4.47 K/uL (1.4-6.5); Neutrophils % (auto) 64.9 %; Platelet Count 156 K/uL (130-400); RDW Coefficient of Variation 14.1 % (11.5-14.5); RDW Standard Deviation 46.7 fL (36.4-46.3); Red Blood Count 4.41 M/uL (4.2-5.4)
[2020-07-19 04:53] LABS: Calcium 8.5 mg/dl (8.5-10.1); Creatinine Clr Calc Pharmacy 53.5 ml/min; Est GFR (African American) 74.1; Est GFR (Non-African American) 63.9; Magnesium 1.7 mg/dl (1.8-2.4); Phosphorus 3.2 mg/dl (2.5-4.9); Potassium 3.9 mmol/L (3.5-5.1)
[2020-07-19 04:55] LABS: Partial Thromboplastin Ratio 2.6
[2020-07-19 05:24] LABS: Partial Thromboplastin Time 71.6 Seconds (21.0-31.0)
[2020-07-19] MEDS: ASCORBIC ACID 500 MG TAB PO SCH (08:29)
[2020-07-19] MEDS: ATORVASTATIN 40 MG TAB PO SCH ×2 (08:29→19:41)
[2020-07-19] MEDS: TOCOPHERYL, DL-ALPHA 400 UNITS CAP PO SCH (08:29)
[2020-07-19] MEDS: FAMOTIDINE 40 MG TABLET PO SCH (08:29)
[2020-07-19] MEDS: ENALAPRIL MALEATE 10 MG TAB PO SCH (08:29)
[2020-07-19] MEDS: metFORMIN HCL 500 MG TAB PO SCH ×2 (08:30→17:01)
[2020-07-19] MEDS: DRONEDARONE HCL 400 MG TAB PO SCH ×2 (08:30→17:01)
[2020-07-19] MEDS ORDERED: BENAZEPRIL HCL 10 MG TAB PO SCH (09:00)
--- NOTE | 2020-07-19 11:09 | Cardiology Consultation ---
Date of Consultation Patient went into atrial fibrillation midnight Carloz guillermo. When she goes into atrial fibrillation she feels jittery and anxious in her chest. She is used a pulse ox and her heart rate was fast in the 130s. She denied any lightheadedness or dizziness. She denies any shortness of breath. She just feels uncomfortable with it. There is no pressure or heaviness in her chest. With normal activity she can climb a flight of stairs without any difficulty she is sad today that she is back in atrial fibrillation. It also sounds like she is having some underlying depression related to the isolation from [place] [id number]. She notes she will not consider going back on Coumadin given her intracranial bleed within the last year. In the past she has had difficulties with amiodarone. She has no lower extremity edema. She sleeps with CPAP on a regular basis. She is very compliant with it. She has any presyncope syncope or falls. She has any dark stools or black stools or bleeding. Her appetites been stable she has been intentionally losing weight. The rest of a complete review of systems is otherwise negative July 19, 2020 History of Present Illness Attending Physician: Joshua Jensen MD Allergies Allergy/AdvReac Type Severity Reaction Status Date / Time azithromycin [From Zithromax] Allergy Severe LEUKOCYTOPLASTIC Verified 07/18/20 12:07 VASCULITIS amiodarone Allergy Mild TREMORS, Verified 07/18/20 12:07 UNSTEADY GAIT, PHOTOSENSITIVITY, AGITATED povidone Allergy Unknown RASH Verified 07/18/20 12:07 NSAIDS (Non-Steroidal AdvReac Mild HIGH BP - Verified 07/18/20 12:07 Anti-Inflamma AVOID, GASTRIC UPSET/GI BLEEDING adhesive AdvReac Unknown RASH Verified 07/18/20 12:07 Home Medications Medication Instructions Recorded Confirmed Type ascorbic acid (vitamin C) [Vitamin 1,000 mg PO QAM 04/08/18 07/18/20 History C] lysine 500 mg PO QAM 04/08/18 07/18/20 History metformin 500 mg PO BIDM 04/08/18 07/18/20 History cetirizine 10 mg tablet 10 mg PO DAILY PRN tab 04/13/19 07/18/20 History cholecalciferol (vitamin D3) 25 5,000 units PO PM tab 04/13/19 07/18/20 History mcg (1,000 unit) tablet cyanocobalamin (vitamin B-12) 1,000 mcg PO PM tab 04/13/19 07/18/20 History 1,000 mcg tablet lorazepam 1 mg tablet 1 mg PO QID PRN tab 04/13/19 05/17/20 History magnesium oxide 400 mg (241.3 mg 400 mg PO PM tab 04/13/19 07/18/20 History magnesium) tablet melatonin 10 mg capsule 10 mg PO HS cap 04/13/19 05/17/20 History pyridoxine (vitamin B6) 100 mg 50 mg PO PM tab 04/13/19 07/18/20 History tablet vitamin E succinate 400 unit tablet 400 units PO QAM tab 04/13/19 07/18/20 History albuterol sulfate 90 mcg/actuation 2 puffs INH Q4H PRN #18 gm 08/30/19 07/18/20 Rx aerosol inhaler docusate sodium 100 mg PO PM 12/26/19 07/18/20 History dronedarone 400 mg PO BIDM 12/26/19 07/18/20 History fluticasone propionate 2 sprays INTNAS DAILY PRN 12/26/19 07/18/20 History Bifidobacterium infantis [Align] 4 mg PO PM 02/21/20 07/18/20 History benazepril 10 mg tablet 10 mg PO DAILY 05/17/20 07/18/20 History atorvastatin 40 mg PO BID 07/18/20 07/18/20 History Patient History Medical History Anxiety Aortic stenosis Asthma Asthma, mild persistent Atrial fibrillation FOLLOWS WITH DR. ISLAS. TAKES MULTAQ BID CARDIOVERSION (SUMMER 2017)-SUCCESSFUL Chronic kidney disease STAGE 3 Depression Diabetes mellitus, type 2 NIDDM Hypothyroidism Mild intermittent asthma Mitral regurgitation RHODA (obstructive sleep apnea) Osteoarthritis Sleep apnea CPAP Transient retinal arterial occlusion, right Surgical History H/O hemorrhoidectomy History of cardiac cath [facility] 2017 NO STENTS History of cardiac radiofrequency ablation [facility], 2017 History of cardioversion SUMMER 2017 AT [facility] History of CEA (carotid endarterectomy) History of colonoscopy History of dilatation and curettage History of excision of pilonidal cyst ~35 years ago History of revision of total replacement of right knee joint History of total knee replacement BILATERAL Family History Other Family history non-contributory Social History Smoking Status: Never smoker Second Hand Exposure: No; Tobacco Cessation Education Requested by Patient: No Hx Alcohol Use: No Hx Substance Use: No Preferred Language: Albanian Communication Ability: Effective Visual Impairment: No Limitations Tour Consultant Required: Yes and No Beliefs That Will Affect Care: None Current Living Situation: Spouse Other Information That Helps Us Care for You: No Feels Safe at Home: Yes Safety Concerns: Feels Safe At This Time Assistive Devices: Cane, Glasses and Oxygen - at Night Results & Data ([facility]) Vital Signs (Past 12 Hours) Vital Signs Temp Pulse Resp BP Pulse Ox 07/19/20 08:26 36.7 C 98 H 16 102/70 96 07/19/20 03:49 36.5 C 87 16 106/67 95 07/18/20 23:41 36.7 C 106 H 19 104/66 96 She is awake alert and oriented x3 she is in no acute distress she looks younger than her stated age H EENT: 2+ carotid upstrokes no evidence of carotid bruits jugular venous pressure appeared normal her hearing is normal Lungs: Clear to auscultation bilaterally no rales rhonchi or wheezing Heart: Irregular rate and rhythm (tachycardic) she has a 3 out of 6 crescendo decrescendo murmur which is mid to late peaking there were no appreciable diastolic murmurs abdomen soft nontender distended positive bowel sounds Extremities: No clubbing cyanosis or edema Psychiatric: She appears somewhat sad and tearful Her inpatient labs were reviewed. Her most recent outpatient echocardiogram was reviewed. Dr. Islas his last outpatient note was reviewed in detail (1) Afib with a rapid ventricular response --paroxysmal, post AFib ablation 08/2016; recurrent symptomatic episodes on despite ablation/antiarrhythmics; last AF hospitalization 11/2017; numerous adverse effects to amiodarone, now on dronedarone and anticoagulation with Coumadin 2. Chronic diastolic heart failure--NYHA class 2 symptoms 3. Moderate to severe aortic stenosis/moderate AI 4. Moderate mitral stenosis/Moderate mitral regurgitation 5. 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 6. Right retinal artery occlusion--11/2017 cardioembolic while on DOAC 7. Prior GI bleed/status post hemorrhoidectomy 8. [id number] nonobstructive coronary artery disease--stable on last cath 11/2017 9. Carotid artery disease post LT CEA Dr. Bell 03/2018 10. Obesity -has lost more than 70 pounds since 03/2018 There are no good answers here with regards to her anticoagulation. She is agreeable to heparin. The challenges with using a novel oral anticoagulant is the fact that she had a stroke on apixaban in 2018. She is adamant that she does not want to consider Coumadin. I discussed with her hopefully she converts back to sinus rhythm within 48 hours making some of these decisions easier in the short-term. If not cardioversion could could be completed during this hospitalization but she would need to be on anticoagulation for a month afterwards. She has had intolerances to amiodarone. If Multaq fails her options would be sotalol or Tikosyn and eventually a Calderon-Maze to procedure when she has open heart surgery for her valvular heart disease. With regards to long-term reduction in her risk of stroke she would be a reasonable candidate for a watchman procedure. Her duration of anticoagulation and antiplatelet agents would be about 12 weeks. This was discussed with the hospitalist service. Dr. Herrera will return tomorrow to take care of her over the weekend. she should remain on a diltiazem drip along with her Multaq.
[2020-07-19 12:25] LABS: Partial Thromboplastin Ratio 2.1
[2020-07-19 12:38] LABS: Partial Thromboplastin Time 59.8 Seconds (21.0-31.0)
[2020-07-19] MEDS: HEPARIN SODIUM/DEXTROSE 25,000 UNITS/500 ML BAG IV SCH (13:15)
[2020-07-19] MEDS ORDERED: LORazepam 1 MG TAB PO PRN (13:20)
--- NOTE | 2020-07-19 13:22 | Hospitalist Progress Note ---
Date of Service July 19, 2020 Assessment & Plan (1) Atrial fibrillation with RVR: Known paroxysmal - no need to repeat TTE (performed in February) Better rate controlled on diltiazem IV 15mg/hr - unable to transition to PO however as has not tolerated rate controlling medications in the past. Goal is for conversion to NSR TSH with AM labs. Continue IV heparin however not on anticoagulation chronically 81 mg aspirin daily enteric-coated Elevated troponin secondary to rapid ventricular response Consult cardiology as unable to switch to rate controlling PO meds as unable to tolerate as outpatient ?increased dronedarone vs AUGIE cardioversion (2) Diabetes mellitus, type 2: HbA1C 5.4 Continue on metformin 500mg BID (3) Aortic stenosis: Moderate-severe on Echo in February (4) Asthma, mild persistent: No acute exacerbation Albuterol PRN (5) Hx of intracranial hemorrhage: Greater than 6 months prior -Patient agreeable with heparin at this time -Defer long-term anticoagulation management to Dr. De Souza as an outpatient (6) Hx of gastrointestinal hemorrhage: Patient agreeable with 81 mg aspirin [place] the [facility] [place] [facility] for additional GI protection Admission and Anticipated Discharge Date Admission Date: July 18, 2020 Subjective No chest pain, shortness of breath, leg swelling, claudication, presyncope or syncope. She does note ongoing palpitations. She confirms unable to take rate controlling medication chronically Also not on anticoagulation chronically Review of Systems Review of Systems: All systems reviewed & are unremarkable except as noted in HPI & below Physical Exam Constitutional: well developed and well nourished; no acute distress Eyes: + anicteric sclerae; pupils not irregular Respiratory: normal respiratory effort, lungs clear to auscultation Cardiovascular: Rate/Rhythm: + tachycardic and + irregularly irregular Heart Sounds: no murmur Vessels: no JVD Extremities: no pedal edema Gastrointestinal (Abdomen): normal bowel sounds, soft, nontender, no hepatosplenomegaly Musculoskeletal: no cyanosis or clubbing, extremities motor strength 5/5 Skin: no rashes, warm and dry Neurologic: moves all extremities and awake; not confused Psychiatric: A+Ox3, euthymic affect Results & Data Results & Data ([facility]) Vital Signs (Past 12 Hours) Vital Signs Temp Pulse Resp BP Pulse Ox 07/19/20 13:17 36.6 C 101 H 18 94/65 L 96 12/25/20 08:26 36.7 C 98 H 16 102/70 96 07/19/20 03:49 36.5 C 87 16 106/67 95 PG Care Time/CCT Total # of Minutes Spent Total Time Spent with Patient: Total time spent is greater than 50% in coordination of care (as documented) at patient's floor/unit and/or counseling patient: Coding Level of Care Code 42797 Subseq Hosp Care Lvl 2 Diagnoses Atrial fibrillation with RVR I48.91 Diabetes mellitus, type 2 E11.59 Diabetes mellitus complication detail: with other circulatory complications Diabetes mellitus complication status: with circulatory complication Diabetes mellitus alf insulin use: without terminal operator use Aortic stenosis I35.0 Cardiac valve disease etiology: nonrheumatic Asthma, mild persistent J45.30 Asthma complication type: uncomplicated Hx of intracranial hemorrhage Z86.79 Hx of gastrointestinal hemorrhage Z87.19 (1) Diabetes mellitus, type 2 Diabetes mellitus complication detail: with other circulatory complications Diabetes mellitus complication status: with circulatory complication Diabetes mellitus alf insulin use: without terminal operator use Qualified Code(s): E11.59 - Type 2 diabetes mellitus with other circulatory complications (2) Aortic stenosis Cardiac valve disease etiology: nonrheumatic Qualified Code(s): I35.0 - Nonrheumatic aortic (valve) stenosis (3) Asthma, mild persistent Asthma complication type: uncomplicated Qualified Code(s): J45.30 - Mild persistent asthma, uncomplicated
[2020-07-19] MEDS ORDERED: LORazepam 1 MG TAB ONE (13:24)
[2020-07-19] MEDS: MAGNESIUM OXIDE 400 MG TAB PO SCH (19:41)
[2020-07-19] MEDS: CHOLECALCIFEROL 1,000 UNITS 25 MCG TAB PO SCH (19:41)
[2020-07-19] MEDS: CYANOCOBALAMIN 500 MCG TABLET (VITAMIN B-12) PO SCH (19:41)
[2020-07-19] MEDS: PYRIDOXINE HCL 50 MG TAB PO SCH (19:41)
[2020-07-19] MEDS: DOCUSATE SODIUM 100 MG CAP PO SCH (19:42)
[2020-07-20] MEDS: dilTIAZem HCL 125 MG in DEXTROSE 5% 100 ML IV SCH (01:03)
[2020-07-20 06:23] LABS: Estimated Average Glucose 108 mg/dl; Hemoglobin A1C 5.4 % (4.5-5.6)
[2020-07-20 07:12] LABS: Basophils # (auto) 0.04 K/uL (0-0.2); Basophils % (auto) 0.7 %; Eosinophils # (auto) 0.22 K/uL (0-0.5); Hematocrit (blood only) 39.2 % (37-47); Hemoglobin 12.8 g/dL (12.0-16.0); Immature Granulocytes # (auto) 0.01 K/uL (0.00-0.02); Immature Granulocytes % (auto) 0.2 %; Lymphocytes # (auto) 1.31 K/uL (1.2-3.4); Lymphocytes % (auto) 23.6 %; Mean Corpuscular Hemoglobin 29.4 pg (25-34); Mean Corpuscular Hgb Conc 32.7 g/dL (32-36); Mean Corpuscular Volume 90.1 fL (80-100); Mean Platelet Volume 11.1 fL (7.4-10.4); Monocytes % (auto) 7.2 %; Neutrophils # (auto) 3.58 K/uL (1.4-6.5); Neutrophils % (auto) 64.3 %; Platelet Count 148 K/uL (130-400); RDW Coefficient of Variation 14.5 % (11.5-14.5); RDW Standard Deviation 47.9 fL (36.4-46.3); Red Blood Count 4.35 M/uL (4.2-5.4); White Blood Count 5.56 K/uL (4.8-10.8)
[2020-07-20 07:40] LABS: Partial Thromboplastin Ratio 2.5
[2020-07-20 07:49] LABS: Calcium 8.5 mg/dl (8.5-10.1); Creatinine Clr Calc Pharmacy 60.9 ml/min; Est GFR (African American) 86.6; Est GFR (Non-African American) 74.7; Magnesium 1.7 mg/dl (1.8-2.4); Phosphorus 2.9 mg/dl (2.5-4.9)
[2020-07-20 07:54] LABS: Partial Thromboplastin Time 69.9 Seconds (21.0-31.0)
[2020-07-20] MEDS: metFORMIN HCL 500 MG TAB PO SCH (08:01)
[2020-07-20] MEDS: DRONEDARONE HCL 400 MG TAB PO SCH (08:02)
[2020-07-20] MEDS ORDERED: MAGNESIUM SULFATE / D5W 1 GM/100 ML BAG IV ONE (08:45)
[2020-07-20] MEDS: ATORVASTATIN 40 MG TAB PO SCH (09:13)
[2020-07-20] MEDS: FAMOTIDINE 40 MG TABLET PO SCH (09:14)
[2020-07-20] MEDS: ENALAPRIL MALEATE 10 MG TAB PO SCH (09:14)
[2020-07-20] MEDS: TOCOPHERYL, DL-ALPHA 400 UNITS CAP PO SCH (09:15)
[2020-07-20] MEDS: ASCORBIC ACID 500 MG TAB PO SCH (10:13)
--- NOTE | 2020-07-20 12:13 | Discharge Summary ---
Date of Service July 20, 2020 Admission HPI Per Admitting Provider Patient is a 69-year-old female with past medical history of mild persistent asthma, obstructive sleep apnea, atrial fibrillation paroxysmal, chronic diastolic heart failure NYHA class II, moderate to severe aortic stenosis, moderate aortic insufficiency, moderate mitral stenosis, history of intraparenchymal hemorrhage on 12/2019, right retinal artery occlusion on November 2017 cardioembolic while on DOAC, peripheral vascular disease status post left carotid endarterectomy on 03/2018 who presents today with a feeling of palpitations Patient's allergies have been reviewed which include his Zithromax, amiodarone, povidone, NSAIDs, adhesives, there is reported intolerance to beta-blockers and calcium channel blockers as she does not like how she feels while being on them. However, she is willing to do any medical treatments as required as an inpatient. Patient does feel when she goes in and out of atrial fibrillation this latest episode started approximately midnight woke her up out of sleep because of the rapid heart rate. She proceeded to the hospital for further evaluation after contacting Dr. De Souza's office. I discussed the case with Dr. De Souza, we will attempt to avoid amiodarone continue diltiazem for rate control, we will initiate heparin, no bolus for anticoagulation in case she needs electrical cardioversion and then this can be discussed at a later date regarding continuation. Patient has a history of gastrointestinal bleeding I will start her on baby aspirin for cardiovascular protection and a PPI as she is agreeable and at least in the short-term with the acute hospitalization. Principal Diagnosis Rapid atrial fibrillation Discharge Exam Constitutional WD/WN, vitals as above Eyes + anicteric sclerae Neck trachea midline, no thyromegaly Respiratory normal respiratory effort, lungs clear to auscultation Cardiovascular Rate/Rhythm: regular rate and regular rhythm Heart Sounds: + murmur (3/6 DEIRDRE at RUSB) Extremities: no calf tenderness and no edema Chest (Breasts) Chest: normal inspection of chest Gastrointestinal (Abdomen) normal bowel sounds, soft, nontender, no hepatosplenomegaly Musculoskeletal Extremities: extremities normal to inspection; no cyanosis and no clubbing Skin no rashes, warm and dry Neurologic moves all extremities and awake; no focal motor deficits Psychiatric A+Ox3, euthymic affect Lymphatic no lymphedema Discharge Data Allergies Allergy/AdvReac Type Severity Reaction Status Date / Time azithromycin [From Zithromax] Allergy Severe LEUKOCYTOPLASTIC Verified 07/18/20 12:07 VASCULITIS amiodarone Allergy Mild TREMORS, Verified 07/18/20 12:07 UNSTEADY GAIT, PHOTOSENSITIVITY, AGITATED povidone Allergy Unknown RASH Verified 07/18/20 12:07 NSAIDS (Non-Steroidal AdvReac Mild HIGH BP - Verified 07/18/20 12:07 Anti-Inflamma AVOID, GASTRIC UPSET/GI BLEEDING adhesive AdvReac Unknown RASH Verified 07/18/20 12:07 Consultations 07/18/20 12:59 ED Decision to Admit Stat 07/19/20 07:45 Consult Cardiology Routine Ordered Studies CXR Hospital Course (1) Atrial fibrillation with RVR: Known paroxysmal - no need to repeat TTE (performed in February) Bhad improved rate control on diltiazem IV 15mg/hr - unable to transition to PO however as has not tolerated rate controlling medications in the past. TSH was normal at 2.0 Electrolytes replace as needed Was placed on heparin IV gtt Spontaneously converted to NSR on night of 07/19 Elevated troponin secondary to rapid ventricular response Consult cardiology appreciated--> recommended AUGIE/DCCV if no conversion but since converted on own., ,no need for this. Recommends Watchman procedure in future vs MAZE with valve surgery when needed in future. Pt plans on having this done at [facility] where her brother works Dc to home today on no new meds and have close f/u with Cardio (2) Diabetes mellitus, type 2: HbA1C 5.4 Continue on metformin 500mg BID (3) Aortic stenosis: Moderate-severe on Echo in February f/u with Cardiology (4) Asthma, mild persistent: No acute exacerbation Albuterol PRN (5) Hx of intracranial hemorrhage: Greater than 6 months prior -Patient agreeable with heparin at this time but no intermediate AC needed at this time do to patient preference given h/o GIB and ICH (6) Hx of gastrointestinal hemorrhage: Dispo-stable for dc to home Total Time Total Time Spent Total Time Spent (In Minutes): 35 min Total Time Includes: Examination of the Patient, Discharge Planning, Medication Reconciliation and Communication With Other Providers (Cardiology Dr. Herrera) Discharge Plan Discharge Items Patient Disposition: Home - Self-Care Reason For Visit: AFIB WITH RVR Discharge Diagnosis: Rapid atrial fibrillation Condition on Discharge: Good Activity: Resume your previous activity Non-emergency contact: Primary Care Provider and Leather Scrubber Call non-emergency contact if: you have any medication questions and your symptoms worsen Follow-up/Referrals: Noam De Souza MD [Physician] - (Follow up within 1-2 weeks) Lewis Villaseñor MD [Primary Care Provider] - (Follow up within 1-2 weeks) Diet: Carb Consistent or DM2 and Heart Healthy Addtl Attending Provider Instructions: You were admitted for rapid atrial fibrillation and then your heart converted to a regular rythm. Because of your issues with bleeding in the past, you will not be on a blood thinner moving forward as discussed, but should follow up with Dr. De Souza with regards to a Watchman procedure as per Dr. Nascimento's recommendation. Follow up also with Dr. Villaseñor. Pending Studies at Discharge: No Stand-Alone Forms: My [facility] Medications and DC Order Prescriptions: Continued benazepril 10 mg tablet 10 mg PO DAILY RF: 0 cetirizine 10 mg tablet 10 mg PO DAILY PRN (Reason: Allergy Symptoms) RF: 0 cholecalciferol (vitamin D3) 1,000 unit (25 mcg) tablet 5,000 units PO PM RF: 0 cyanocobalamin (vitamin B-12) 1,000 mcg tablet 1,000 mcg PO PM RF: 0 lorazepam 1 mg tablet 1 mg PO QID PRN (Reason: Anxiety) RF: 0 magnesium oxide 400 mg (241.3 mg magnesium) tablet 400 mg PO PM RF: 0 melatonin 10 mg capsule 10 mg PO HS RF: 0 pyridoxine (vitamin B6) 100 mg tablet 50 mg PO PM RF: 0 vitamin E succinate 400 unit tablet 400 units PO QAM RF: 0 albuterol sulfate [Ventolin HFA] 90 mcg/actuation HFA aerosol inhaler 2 puffs INH Q4H PRN (Reason: shortness of breath or wheezing) Qty: 18 RF: 5 atorvastatin 40 mg tablet 40 mg PO BID RF: 0 metformin 500 mg Tablet 500 mg PO BIDM RF: 0 ascorbic acid (vitamin C) [Vitamin C] 1,000 mg Tablet 1,000 mg PO QAM RF: 0 lysine 500 mg Tablet 500 mg PO QAM RF: 0 docusate sodium 100 mg capsule 100 mg PO PM RF: 0 fluticasone propionate 50 mcg/actuation spray,suspension 2 sprays INTNAS DAILY PRN (Reason: Congestion) RF: 0 dronedarone 400 mg tablet 400 mg PO BIDM RF: 0 Align 4 mg Capsule 4 mg PO PM RF: 0 Discharge Orders: Discharge Order (Routine); Ordered 07/20/20 Ordered By: Angelic Banegas Admission Data Admit Date/Time: 07/18/20 13:15 Attending Provider: Angelic Banegas Admit Provider: Homer French Primary Care Provider: Lewis Villaseñor Other Providers: Homer French ; Chaz Nascimento Coding Level of Care Code D/C Day Management >30 mins Diagnoses Atrial fibrillation with RVR I48.91 Diabetes mellitus, type 2 E11.59 Diabetes mellitus terminal make up operator insulin use: without intermediate use Diabetes mellitus complication status: with circulatory complication Diabetes mellitus complication detail: with other circulatory complications Aortic stenosis I35.0 Cardiac valve disease etiology: nonrheumatic Asthma, mild persistent J45.30 Asthma complication type: uncomplicated Hx of intracranial hemorrhage Z86.79 Hx of gastrointestinal hemorrhage Z87.19
== END 2020-07-20 13:00 | disposition home or self-care (01) | DRG 309 ==
LOC: ED 11:04 → SUATTDRO 13:15 → 2S 13:15

== ENCOUNTER 2020-12-30 17:41 | Inpatient (IN) ==
[2020-12-30 19:14] LABS: Basophils # (auto) 0.03 K/uL (0-0.2); Basophils % (auto) 0.7 %; Eosinophils # (auto) 0.09 K/uL (0-0.5); Eosinophils % (auto) 2.2 %; Hematocrit (blood only) 40.5 % (37-47); Hemoglobin 13.4 g/dL (12.0-16.0); Immature Granulocytes # (auto) 0.01 K/uL (0.00-0.02); Immature Granulocytes % (auto) 0.2 %; Lymphocytes # (auto) 0.81 K/uL (1.2-3.4); Lymphocytes % (auto) 19.8 %; Mean Corpuscular Hemoglobin 29.2 pg (25-34); Mean Corpuscular Hgb Conc 33.1 g/dL (32-36); Mean Corpuscular Volume 88.2 fL (80-100); Mean Platelet Volume 10.3 fL (7.4-10.4); Monocytes # (auto) 0.57 K/uL (0.11-0.59); Monocytes % (auto) 13.9 %; Neutrophils # (auto) 2.59 K/uL (1.4-6.5); Neutrophils % (auto) 63.2 %; Platelet Count 128 K/uL (130-400); RDW Coefficient of Variation 14.6 % (11.5-14.5); Red Blood Count 4.59 M/uL (4.2-5.4)
[2020-12-30 19:34] LABS: Albumin Level 3.4 gm/dl (3.4-5.0); BUN Creatinine Ratio 29.3 (10-20); Calcium 8.6 mg/dl (8.5-10.1); Creatinine Clr Calc Pharmacy 24.3 ml/min; Est GFR (African American) 30.8 ml/min; Est GFR (Non-African American) 26.6 ml/min; Potassium 4.6 mmol/L (3.5-5.1)
[2020-12-30 19:36] LABS: Albumin Globulin Ratio 0.9 (0.9-2); Bilirubin,Total 0.8 mg/dl (0.2-1); Globulin 3.7 gm/dl (2.5-4.0); Total Protein 7.1 gm/dl (6.4-8.2)
[2020-12-30] MEDS ORDERED: SODIUM CHLORIDE 0.9% 1000ML 1,000 ML IV ONE (19:50)
[2020-12-30] MEDS ORDERED: cefTRIAXone SODIUM 1,000 MG/50 ML BAG IV STA (19:51)
[2020-12-30 19:53] LABS: Echinocytes 1+
--- NOTE | 2020-12-30 19:56 | Emergency Department Note ---
Impression & Plan Afib, Elevated troponin, Acute Lyme disease, Acute dehydration ED Provider Note NAME: CHANI HERRERA AGE: 70 SEX: F : 1950 ARRIVES VIA: Walk-In INFORMANT: Patient ED PROVIDER(S): Jose Tovar DO CHIEF COMPLAINT: Lightheaded HPI: Patient is a 70-year-old female who presents the ER for lightheadedness and feeling weak. She was checking her blood pressure at home and it was in the 80s to 90s. She denies any headache or change in vision. No chest pain or shortness of breath. No nausea, vomiting, or diarrhea. No dysuria, urgency, or frequency. She does not remember any tick bites but notes now that she has a rash on her right anterior chest and between her right third and fourth digits. Denies any other exacerbating or remitting factors. She notes she was cleaning up the garden yesterday. She does not take any blood thinners as she recently had a watchman placed over a year ago in [place]. ROS: See above HPI for pertinent positives & negatives. A total of 10 systems reviewed and were otherwise negative. PAST MEDICAL HISTORY:See Below PAST SURGICAL HISTORY:See Below FAMILY HISTORY:See Below SOCIAL HISTORY:See Below HOME MEDICATIONS:See Below ALLERGIES:See Below VITALS:See Below PHYSICAL EXAMINATION: GENERAL: Sitting up in bed, alert, well appearing, well nourished, no distress, non-toxic EYE EXAM: normal conjunctiva. PERRL and EOM's grossly intact. OROPHARYNX: no exudate, no erythema, lips, buccal mucosa, and tongue normal and mucous membranes are moist NECK: supple, no nuchal rigidity, no adenopathy, non-tender LUNGS: Clear to auscultation. Normal chest wall mechanics HEART: no murmurs, S1 normal and S2 normal ABDOMEN: abdomen soft, non-tender, normo-active bowel sounds, no masses, no rebound or guarding. BACK: Back is symmetrical on inspection and there is no deformity, no midline tenderness, no CVA tenderness. SKIN: Erythematous rash over/just above the right breast with a central bite jese UPPER EXTREMITIES: upper extremities are grossly normal. LOWER EXTREMITIES: No pitting edema. NEURO EXAM: Normal sensorium, cranial nerves II-XII grossly intact, normal speech, no gross weakness of arms, no gross weakness of legs. MEDICAL DECISION MAKING: Patient is a 70-year-old female who presents the ER for weakness and lightheadedness with low blood pressures at home. IV was established blood work was obtained. Labs show leukopenia 4000. Mild thrombocytopenia at 128. BMP with a creatinine at 1.87 up from a baseline of 0.8. LFTs bilirubin was unremarkable. Troponin was detectable at 0.171. Previous admission back in November did have an elevated troponin but 3 presentations prior to that were all negative. Admission in November was for A. fib RVR and they believe that this is demand ischemia at that time. UA was contaminated with multiple epithelial cells. Lyme IgG and IgM was negative even though patient has rash consistent with erythema migrans. Patient was given a gram of Rocephin. In retrospect with the leukopenia and thrombocytopenia this is likely more consistent with anaplasmosis. Smear was ordered and I updated Dr. Strickland in regards to this. She did add on doxycycline. Patient's heart rate trended down from the 130s with the A. fib with RVR with 2 L of IV fluids. She was updated bedside admitted for further work-up. Triage Nursing notes reviewed. Limited review of prior medical records performed Vital Signs: reviewed and remarkable for hypotension and tachy Differential diagnosis: Differential diagnoses includes but is not limited to acute coronary syndrome, myocardial infarction, pericarditis, pulmonary embolus, aortic dissection, pneumonia, pneumothorax, musculoskeletal, shingles, esophageal. ER treatment provided: See below Diagnostics interpreted by me: ECG: A. fib RVR rate of 115 Left axis Right bundle branch block No PVCs QTC 495 Cardiac Monitoring: An order was placed for continuous cardiac monitoring. The monitor shows a rate of 132 with sinus rhythm. Laboratory studies: As stated above and show below. Imaging studies: Portable AP upright 1 view the chest shows no focal infiltrate or pneumothorax Consultation(s): Discussed with the hospitalist Dr. Strickland for further evaluation Procedures: none Critical Care: None Past Med/Surg History Medical History (Updated 12/31/20 @ 01:04 by Jose Tovar DO) Anxiety Aortic stenosis MODERATE TO SEVERE PER RECORDS MODERATE AR Asthma, mild persistent HAS NOT USED RESCUE INHALER FOR A COUPLE MONTHS Atrial fibrillation FOLLOWS WITH DR. 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 (STILL HAS BALANCE PROBLEMS AND A FLOATER IN RT EYE) Transient retinal arterial occlusion, right 2018- CARDIOEMBOLIC WHILE ON DOAC Surgical History (Updated 10/02/20 @ 09:27 by Emmy Morales PA-C) Family history of reaction to anesthesia MOTHER DURING HYSTERECTOMY 65 YEARS AGO (ANAPHYLACTIC SHOCK) H/O hemorrhoidectomy History of breast biopsy BENIGN History of cardiac cath [facility] 2017 NO STENTS History of cardiac radiofrequency ablation [facility], 2016 History of cardioversion SUMMER 2017 AT [facility] History of CEA (carotid endarterectomy) LEFT History of colonoscopy History of dilatation and curettage History of excision of pilonidal cyst History of revision of total knee arthroplasty History of revision of total knee arthroplasty RT History of tooth extraction History of total knee replacement RT/LEFT History of transesophageal echocardiography (AUGIE) Family History (Updated 10/02/20 @ 08:40 by Shey Barriga RN) Father Family history of diabetes mellitus Brother Family history of diabetes mellitus Other Family history non-contributory Social History Smoking Status: Never smoker Second Hand Exposure: Yes (IN THE PAST); Hx Alcohol Use: Yes Alcohol type: hard liquor Hx Substance Use: No Preferred Language: Belarusian Communication Ability: Effective Visual Impairment: No Limitations Electromyographic Technician Required: No Beliefs That Will Affect Care: None Current Living Situation: Spouse Other Information That Helps Us Care for You: No Feels Safe at Home: Yes Safety Concerns: Feels Safe At This Time Assistive Devices: Cane, CPAP and Glasses Allergies Allergies Allergy/AdvReac Type Severity Reaction Status Date / Time azithromycin [From Zithromax] Allergy Severe LEUKOCYTOPLASTIC Verified 12/30/20 20:07 VASCULITIS amiodarone Allergy Intermediate TREMORS, Verified 12/30/20 20:07 UNSTEADY GAIT, PHOTOSENSITIVITY, AGITATED NSAIDS (Non-Steroidal Allergy Intermediate HIGH BP - Verified 12/30/20 20:07 Anti-Inflamma AVOID, GASTRIC UPSET/GI BLEEDING povidone Allergy Mild RASH Verified 12/30/20 20:07 adhesive AdvReac Mild RASH Verified 12/30/20 20:07 Home Meds Home Medications Medication Instructions Recorded Confirmed ascorbic acid (vitamin C) [Vitamin 1,000 mg PO QAM 04/08/18 12/30/20 C] lysine 500 mg PO QAM 04/08/18 12/30/20 metformin 500 mg PO BIDM 04/08/18 12/30/20 cetirizine 10 mg tablet 10 mg PO DAILY PRN tab 04/13/19 12/30/20 cholecalciferol (vitamin D3) 25 5,000 units PO PM tab 04/13/19 12/30/20 mcg (1,000 unit) tablet cyanocobalamin (vitamin B-12) 1,000 mcg PO PM tab 04/13/19 12/30/20 1,000 mcg tablet lorazepam 1 mg tablet 1 mg PO QID PRN tab 04/13/19 12/30/20 magnesium oxide 400 mg (241.3 mg 400 mg PO PM tab 04/13/19 12/30/20 magnesium) tablet melatonin 10 mg capsule 10 mg PO HS cap 04/13/19 12/30/20 pyridoxine (vitamin B6) 100 mg 50 mg PO PM tab 04/13/19 12/30/20 tablet vitamin E succinate 400 unit tablet 400 units PO QAM tab 04/13/19 12/30/20 fluticasone propionate 2 sprays INTNAS DAILY PRN 12/26/19 12/30/20 Align 4 mg PO PM 02/21/20 12/30/20 benazepril 10 mg tablet 10 mg PO QAM 05/17/20 12/30/20 atorvastatin 40 mg PO QAM 07/18/20 12/30/20 levothyroxine 112 mcg PO QAM 10/02/20 12/30/20 apixaban 5 mg tablet 5 mg PO BID 11/21/20 12/30/20 aspirin 81 mg PO DAILY 12/30/20 12/30/20 Previous Rx's Medication Instructions Recorded albuterol sulfate 90 mcg/actuation 2 puffs INH Q4H PRN #18 gm 08/30/19 aerosol inhaler dronedarone 400 mg tablet 400 mg PO BIDM #180 tab 09/23/20 digoxin 125 mcg (0.125 mg) tablet 125 mcg PO DAILY #30 tab 12/03/20 Results & Data (ED) Vital Signs Vital Signs - 24 hr 12/30/20 17:48 12/30/20 19:49 12/30/20 20:24 Temperature 36.7 C Temperature Source Temporal Artery Scan Pulse Rate 123 H Pulse Rate [Bilateral Apical] 131 H 103 H Pulse Rhythm Regular Pulse Strength Normal Respiratory Rate 18 22 20 Respiratory Effort / Characteristics Non-Labored Spontaneous Respiratory Depth Normal Respiratory Pattern Regular Blood Pressure 104/76 Blood Pressure [Right Arm] 99/80 L 103/78 Blood Pressure Mean 85 Blood Pressure Mean [Right Arm] 86 86 Pulse Oximetry 99 100 99 Oxygen Delivery Method Room Air Room Air Sepsis Recent Fever Within 48 Hours No Sepsis New/Unexplained Change in Mental Status No Sepsis Action Taken by Nursing No Action Required 12/30/20 21:23 12/30/20 22:14 Temperature Temperature Source Pulse Rate Pulse Rate [Bilateral Apical] 95 H 107 H Pulse Rhythm Pulse Strength Respiratory Rate 20 20 Respiratory Effort / Characteristics Respiratory Depth Respiratory Pattern Blood Pressure Blood Pressure [Right Arm] 115/82 90/75 L Blood Pressure Mean Blood Pressure Mean [Right Arm] 93 80 Pulse Oximetry 97 99 Oxygen Delivery Method Room Air Room Air Sepsis Recent Fever Within 48 Hours Sepsis New/Unexplained Change in Mental Status Sepsis Action Taken by Nursing Laboratory Data Result diagrams: 12/30/20 19:04 12/30/20 19:04 Lab Results 12/30/20 12/30/20 12/30/20 Range/Units 19:04 19:04 19:04 WBC 4.10 L (4.8-10.8) K/uL RBC 4.59 (4.2-5.4) M/uL Hgb 13.4 (12.0-16.0) g/dL Hct 40.5 (37-47) % MCV 88.2 (80-100) fL MCH 29.2 (25-34) pg MCHC 33.1 (32-36) g/dL RDW Std Deviation 47.0 H (36.4-46.3) fL RDW Coeff of Dru 14.6 H (11.5-14.5) % Plt Count 128 L (130-400) K/uL MPV 10.3 (7.4-10.4) fL Immature Gran % (Auto) 0.2 % Neut % (Auto) 63.2 % Lymph % (Auto) 19.8 % Calloway % (Auto) 13.9 % Eos % (Auto) 2.2 % Baso % (Auto) 0.7 % Neut # (Auto) 2.59 (1.4-6.5) K/uL Lymph # (Auto) 0.81 L (1.2-3.4) K/uL Calloway # (Auto) 0.57 (0.11-0.59) K/uL Eos # (Auto) 0.09 (0-0.5) K/uL Baso # (Auto) 0.03 (0-0.2) K/uL Immature Gran # (Auto) 0.01 (0.00-0.02) K/uL Echinocytes 1+ Sodium 138 (136-145) mmol/L Potassium 4.6 (3.5-5.1) mmol/L Chloride 104 (98-107) mmol/L Carbon Dioxide 24 (21-32) mmol/L Anion Gap 10.0 (3-11) BUN 55 H (7-18) mg/dl Creatinine 1.87 H (0.6-1.2) mg/dl Est Cr Clr Drug Dosing 24.3 ml/min Est GFR ( Amer) 30.8 ml/min Est GFR (Non-Af Amer) 26.6 ml/min BUN/Creatinine Ratio 29.3 H (10-20) Glucose 86 (70-99) mg/dl Calcium 8.6 (8.5-10.1) mg/dl Phosphorus 4.3 (2.5-4.9) mg/dl Magnesium 2.2 (1.8-2.4) mg/dl Total Bilirubin 0.8 (0.2-1) mg/dl AST 48 H (15-37) U/L ALT 55 (12-78) U/L Alkaline Phosphatase 102 (45-117) U/L Total Creatine Kinase 74 (26-192) U/L Troponin I 0.171 H* (0-0.045) ng/ml Total Protein 7.1 (6.4-8.2) gm/dl Albumin 3.4 (3.4-5.0) gm/dl Globulin 3.7 (2.5-4.0) gm/dl Albumin/Globulin Ratio 0.9 (0.9-2) Lyme Disease IgG Ab Negative (Negative) Lyme Disease IgM Ab Negative (Negative) COVID-19 Eval Order SARS-CoV-2 (PCR) (Negative) 12/30/20 12/30/20 Range/Units 22:12 22:12 WBC (4.8-10.8) K/uL RBC (4.2-5.4) M/uL Hgb (12.0-16.0) g/dL Hct (37-47) % MCV (80-100) fL MCH (25-34) pg MCHC (32-36) g/dL RDW Std Deviation (36.4-46.3) fL RDW Coeff of Dru (11.5-14.5) % Plt Count (130-400) K/uL MPV (7.4-10.4) fL Immature Gran % (Auto) % Neut % (Auto) % Lymph % (Auto) % Calloway % (Auto) % Eos % (Auto) % Baso % (Auto) % Neut # (Auto) (1.4-6.5) K/uL Lymph # (Auto) (1.2-3.4) K/uL Calloway # (Auto) (0.11-0.59) K/uL Eos # (Auto) (0-0.5) K/uL Baso # (Auto) (0-0.2) K/uL Immature Gran # (Auto) (0.00-0.02) K/uL Echinocytes Sodium (136-145) mmol/L Potassium (3.5-5.1) mmol/L Chloride (98-107) mmol/L Carbon Dioxide (21-32) mmol/L Anion Gap (3-11) BUN (7-18) mg/dl Creatinine (0.6-1.2) mg/dl Est Cr Clr Drug Dosing ml/min Est GFR ( Amer) ml/min Est GFR (Non-Af Amer) ml/min BUN/Creatinine Ratio (10-20) Glucose (70-99) mg/dl Calcium (8.5-10.1) mg/dl Phosphorus (2.5-4.9) mg/dl Magnesium (1.8-2.4) mg/dl Total Bilirubin (0.2-1) mg/dl AST (15-37) U/L ALT (12-78) U/L Alkaline Phosphatase (45-117) U/L Total Creatine Kinase (26-192) U/L Troponin I (0-0.045) ng/ml Total Protein (6.4-8.2) gm/dl Albumin (3.4-5.0) gm/dl Globulin (2.5-4.0) gm/dl Albumin/Globulin Ratio (0.9-2) Lyme Disease IgG Ab (Negative) Lyme Disease IgM Ab (Negative) COVID-19 Eval Order Covid19 at [facility] SARS-CoV-2 (PCR) NEGATIVE (Negative) Administered Medications Lactated Ringer's (Lr) 1,000 mls @ 100 mls/hr IV .Q10H BARB Stop: 12/31/20 20:29 Last Admin: 12/31/20 00:33 Dose: 100 mls/hr Documented by: [id number] Discontinued Medications Sodium Chloride (Nss 1000ml) 1,000 mls @ 999 mls/hr IV .Q1H1M ONE Stop: 12/30/20 20:50 Last Infusion: 12/30/20 21:25 Dose: 0 mls/hr Documented by: [id number] Admin: 12/30/20 20:22 Dose: 999 mls/hr Documented by: [id number] Ceftriaxone Sodium (Rocephin) 1,000 mg in 50 mls @ 100 mls/hr IV NOW STA Stop: 12/30/20 20:20 Last Infusion: 12/30/20 20:40 Dose: 0 mls/hr Documented by: [id number] Admin: 12/30/20 20:23 Dose: 100 mls/hr Documented by: [id number] Imaging Data Radiologist's Impression: Chest X-Ray 12/30/20 19:51 XR chest 1V portable CLINICAL HISTORY: weak COMPARISON STUDY: Chest radiograph July 18, 2020. FINDINGS: Lung volumes are normal. Lungs are clear. There is no pneumothorax or pleural effusion. Cardiomegaly is unchanged. Extensive mitral annular calcification is again noted. There may be an occluder device within the left atrial appendage. IMPRESSION: No acute cardiopulmonary findings. Cardiomegaly. ACT 112: Negative or not required by law. Electronically signed by: Chacho Griggs M.D. 12/30/2020 8:39 PM Discharge Plan Visit Data Chief Complaint: Hypotension Stated Complaint: LOW BLOOD PRESSURE, HARD TO WALK ED Provider: Tovar,Jose M Discharge Problem: Afib, Elevated troponin, Acute Lyme disease, Acute dehydration Patient Disposition: Admitted As Inpatient Discharge Instructions Interventions: ED Discharge Assessment Last Done: 12/30/20 23:50 Discharge Problem: Afib Qualifiers: Atrial fibrillation type: unspecified Qualified Code(s): I48.91 - Unspecified atrial fibrillation
--- NOTE | 2020-12-30 20:41 | XRay Report ---
XR chest 1V portable CLINICAL HISTORY: weak COMPARISON STUDY: Chest radiograph July 18, 2020. FINDINGS: Lung volumes are normal. Lungs are clear. There is no pneumothorax or pleural effusion. Car diomegaly is unchanged. Extensive mitral annular calcification is again noted. There may be an occlud er device within the left atrial appendage. IMPRESSION: No acute cardiopulmonary findings. Cardiomegaly. ACT 112: Negative or not required by law. Electronically signed by: Chacho Griggs M.D. 12/30/2020 8:39 PM
[2020-12-30 20:56] LABS: Appearance Urine Cloudy (Clear); Bacteria Urine Automated Negative (Negative); Blood Urine Negative (Negative); Color Urine Dark Yellow; Epithelial Cell Urine Auto >30 /lpf (0-5); Glucose Urine UA Negative (Negative); Ketones Urine Trace (Negative); Leukocyte Esterase Urine 2+ (Negative); Nitrite Urine Negative (Negative); Protein Urine 1+ (Negative); Specific Gravity Urine 1.021 (1.000-1.030); Urobilinogen Urine Negative (Negative)
[2020-12-30 20:59] LABS: Bilirubin Urine 1+ (Negative)
[2020-12-30 21:21] LABS: Troponin I 0.171 ng/ml (0-0.045)
[2020-12-30 21:56] LABS: Lyme Ab IgG w/WB Rflx Negative (Negative); Lyme Ab IgM w/WB Rflx Negative (Negative)
--- NOTE | 2020-12-30 23:18 | History & Physical Report ---
Date of Service December 30, 2020 Assessment & Plan (1) Hypotension: 70yo female presents with 2 weeks of progressive fatigue. She has had several readings of low blood pressure on her home wrist cuff. ?Dehydration contributing, ?medication effects. Patient reported a single episode of fever 2 days ago but has not had one since. Some concern for tick-borne illness (see below) -Gentle IVF -Continue to monitor Present on Admission?: Yes (2) Atrial fibrillation: Patient presently in atrial fibrillation. She is anticoagulated with Apixaban. On Dronedarone for rate control. She has had a Watchman device placed in October - plans to transition off anticoagulation to Plavix in future. She follows with Cardiology -Telemetry monitoring -Check Digoxin level -Continue Apixaban -Continue Digoxin -Continue Dronedarone Present on Admission?: Yes (3) Acute Lyme disease: Patient with well circumscribed rash on right chest wall. [place] but does not recall having any tick bites. She is thrombocytopenic, leukopenic as well. If she had a tick bite recently labs may not show acute infection. Anaplasma pending -Doxycycline 100mg BID -Follow blood work Present on Admission?: Yes (4) CHF (congestive heart failure): Chronic. Well controlled -Continue home medications Present on Admission?: Yes (5) RHODA (obstructive sleep apnea): Chronic -CPAP 6cm H2O qHS Present on Admission?: Yes (6) Diabetes mellitus, type 2: Well controlled -Hold Metformin -ISS -Goal blood sugar 100 - 140 Present on Admission?: Yes (7) Asthma, mild persistent: (8) Hypothyroidism: Chronic -Continue Synthroid 112mcg daily Present on Admission?: Yes (9) Anxiety: Chronic. Patient currently feels anxious -Ativan 1mg po QID PRN Present on Admission?: Yes (10) CAD (coronary artery disease): Chronic. Stable. Patient has had elevated troponin in the past -Repeat troponin -Continue home meds - ASA, Atorvastatin Present on Admission?: Yes (11) Chronic kidney disease: Near baseline F/E/N - LR at 100mL/hr x 2L, CC diet as tolerated, Continue PO Magnesium Ppx- On Apixaban Code -Full Dispo - Observation to medical with telemetry Present on Admission?: Yes History of Present Illness Chief Complaint: Fatigue Primary Care Provider: MD Cathy Powell is a pleasant 70yo C female with multiple medical comorbidities presenting with two weeks of progressive/persistent fatigue. Patient monitors her blood pressure frequently at home using automated wrist cuffs - has been getting low readings lately. She brought the cuffs with her today and I reviewed them - she had several readings of 80's/40's, HR to 140. Patient follows with Cardiology - last saw Dr. Islas on 11/21/20. She has history of PAF s/p ablation with subsequent recurrence. 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 She is currently on Dronedarone (unable to tolerate Amiodarone). Also with moderate to severe with moderate AI. Moderate MS with moderate MR. She denies chest pain, palpitations, dizziness, syncope. Denies abdominal pain, nausea, vomiting, diarrhea. States she is eating well at home. Normal urination and BMs. She did have an isolated fever on Wednesday to 102 which resolved with Tylenol and has not reoccurred. Rash/redness on right breast surrounding what appears to be a bite. Patient does not recall having a tick on her or getting bitten by anything. ER Course: Ceftriaxone Allergies Allergy/AdvReac Type Severity Reaction Status Date / Time azithromycin [From Zithromax] Allergy Severe LEUKOCYTOPLASTIC Verified 12/30/20 20:07 VASCULITIS amiodarone Allergy Intermediate TREMORS, Verified 12/30/20 20:07 UNSTEADY GAIT, PHOTOSENSITIVITY, AGITATED NSAIDS (Non-Steroidal Allergy Intermediate HIGH BP - Verified 12/30/20 20:07 Anti-Inflamma AVOID, GASTRIC UPSET/GI BLEEDING povidone Allergy Mild RASH Verified 12/30/20 20:07 adhesive AdvReac Mild RASH Verified 12/30/20 20:07 Home Medications Medication Instructions Recorded Confirmed Type ascorbic acid (vitamin C) [Vitamin 1,000 mg PO QAM 04/08/18 12/30/20 History C] lysine 500 mg PO QAM 04/08/18 12/30/20 History metformin 500 mg PO BIDM 04/08/18 12/30/20 History cetirizine 10 mg tablet 10 mg PO DAILY PRN tab 04/13/19 12/30/20 History cholecalciferol (vitamin D3) 25 5,000 units PO PM tab 04/13/19 12/30/20 History mcg (1,000 unit) tablet cyanocobalamin (vitamin B-12) 1,000 mcg PO PM tab 04/13/19 12/30/20 History 1,000 mcg tablet lorazepam 1 mg tablet 1 mg PO QID PRN tab 04/13/19 12/30/20 History magnesium oxide 400 mg (241.3 mg 400 mg PO PM tab 04/13/19 12/30/20 History magnesium) tablet melatonin 10 mg capsule 10 mg PO HS cap 04/13/19 12/30/20 History pyridoxine (vitamin B6) 100 mg 50 mg PO PM tab 04/13/19 12/30/20 History tablet vitamin E succinate 400 unit tablet 400 units PO QAM tab 04/13/19 12/30/20 Hist ory albuterol sulfate 90 mcg/actuation 2 puffs INH Q4H PRN #18 gm 08/30/19 12/30/20 Rx aerosol inhaler fluticasone propionate 2 sprays INTNAS DAILY PRN 12/26/19 12/30/20 History Align 4 mg PO PM 02/21/20 12/30/20 History benazepril 10 mg tablet 10 mg PO QAM 05/17/20 12/30/20 History atorvastatin 40 mg PO QAM 07/18/20 12/30/20 History dronedarone 400 mg tablet 400 mg PO BIDM #180 tab 09/23/20 12/30/20 Rx levothyroxine 112 mcg PO QAM 10/02/20 12/30/20 History apixaban 5 mg tablet 5 mg PO BID 11/21/20 12/30/20 History digoxin 125 mcg (0.125 mg) tablet 125 mcg PO DAILY #30 tab 12/03/20 12/30/20 Rx aspirin 81 mg PO DAILY 12/30/20 12/30/20 History Past Med/Surg History Medical History (Updated 12/31/20 @ 03:28 by Ginny Strickland DO) Anxiety Aortic stenosis MODERATE TO SEVERE PER RECORDS MODERATE AR Asthma, mild persistent HAS NOT USED RESCUE INHALER FOR A COUPLE MONTHS Atrial fibrillation FOLLOWS WITH DR. 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 (STILL HAS BALANCE PROBLEMS AND A FLOATER IN RT EYE) Transient retinal arterial occlusion, right 2018- CARDIOEMBOLIC WHILE ON DOAC Surgical History (Updated 10/02/20 @ 09:27 by Emmy Morales PA-C) Family history of reaction to anesthesia MOTHER DURING HYSTERECTOMY 65 YEARS AGO (ANAPHYLACTIC SHOCK) H/O hemorrhoidectomy History of breast biopsy BENIGN History of cardiac cath [facility] 2017 NO STENTS History of cardiac radiofrequency ablation [facility], 2016 History of cardioversion SUMMER 2017 AT [facility] History of CEA (carotid endarterectomy) LEFT History of colonoscopy History of dilatation and curettage History of excision of pilonidal cyst History of revision of total knee arthroplasty History of revision of total knee arthroplasty RT History of tooth extraction History of total knee replacement RT/LEFT History of transesophageal echocardiography ([facility]) Family History (Updated 10/02/20 @ 08:40 by Shey Barriga RN) Father Family history of diabetes mellitus Brother Family history of diabetes mellitus Other Family history non-contributory Social History Smoking Status: Never smoker Second Hand Exposure: Yes (IN THE PAST); Hx Alcohol Use: Yes Alcohol type: hard liquor Hx Substance Use: No Preferred Language: Syrian Communication Ability: Effective Visual Impairment: No Limitations Seat Scooper Machine Required: No Beliefs That Will Affect Care: None Current Living Situation: Spouse Other Information That Helps Us Care for You: No Feels Safe at Home: Yes Safety Concerns: Feels Safe At This Time Assistive Devices: Cane and Glasses Review of Systems Review of Systems: All systems reviewed & are unremarkable except as noted in HPI & below Physical Exam Physical Exam: General: patient resting comfortably, NAD, non-toxic in appearance, AA&O x 4 Skin: warm, dry, intact, well circumscribed circular area of redness on right chest wall/axillary fold surrounding what appears to be an insect bite, no crepitus/bullae HEENT: NC/AT, PERRL, EOMI, anicteric sclera, conjunctiva without injection, external ear normal to inspection and nontender, nares patent, moist mucus membranes, dentition intact, no oropharyngeal lesions, neck supple, trachea midline, no LAD, no thyromegaly, no JVD Heart: +S1/S2, regular, 4/6 DEIRDRE across precordium to carotids Lungs: equal air entry bilaterally, no rales/rhonchi/wheezes Abd: +BS, soft, NT/ND, no masses/organomegaly/ascites Ext: warm, 2+ pulses in UE/LE bilaterally, no clubbing/cyanosis or edema Neuro: nonfocal, patient AA&O x 4, speech intact, no facial droop, moving all extremities on command with equal strength 5/5 Results & Data Results & Data ([facility]) Vital Signs (Past 12 Hours) Vital Signs Temp Pulse Pulse Resp BP BP Pulse Ox 12/30/20 22:14 107 H 20 90/75 L 99 12/30/20 21:23 95 H 20 115/82 97 12/30/20 20:24 103 H 20 103/78 99 12/30/20 19:49 131 H 22 99/80 L 100 12/30/20 17:48 36.7 C 123 H 18 104/76 99 Laboratory Results Laboratory Results WBC 4.10 K/uL (4.8-10.8) L 12/30/20 19:04 RBC 4.59 M/uL (4.2-5.4) 12/30/20 19:04 Hgb 13.4 g/dL (12.0-16.0) 12/30/20 19:04 Hct 40.5 % (37-47) 12/30/20 19:04 MCV 88.2 fL (80-100) 12/30/20 19:04 MCH 29.2 pg (25-34) 12/30/20 19:04 MCHC 33.1 g/dL (32-36) 12/30/20 19:04 RDW Std Deviation 47.0 fL (36.4-46.3) H 12/30/20 19:04 RDW Coeff of Dru 14.6 % (11.5-14.5) H 12/30/20 19:04 Plt Count 128 K/uL (130-400) L 12/30/20 19:04 MPV 10.3 fL (7.4-10.4) 12/30/20 19:04 Immature Gran % (Auto) 0.2 % 12/30/20 19:04 Neut % (Auto) 63.2 % 12/30/20 19:04 Lymph % (Auto) 19.8 % 12/30/20 19:04 [place] % (Auto) 13.9 % 12/30/20 19:04 Eos % (Auto) 2.2 % 12/30/20 19:04 Baso % (Auto) 0.7 % 12/30/20 19:04 Neut # (Auto) 2.59 K/uL (1.4-6.5) 12/30/20 19:04 Lymph # (Auto) 0.81 K/uL (1.2-3.4) L 12/30/20 19:04 [place] # (Auto) 0.57 K/uL (0.11-0.59) 12/30/20 19:04 Eos # (Auto) 0.09 K/uL (0-0.5) 12/30/20 19:04 Baso # (Auto) 0.03 K/uL (0-0.2) 12/30/20 19:04 Immature Gran # (Auto) 0.01 K/uL (0.00-0.02) 12/30/20 19:04 Echinocytes 1+ 12/30/20 19:04 Sodium 138 mmol/L (136-145) 12/30/20 19:04 Potassium 4.6 mmol/L (3.5-5.1) 12/30/20 19:04 Chloride 104 mmol/L (98-107) 12/30/20 19:04 Carbon Dioxide 24 mmol/L (21-32) 12/30/20 19:04 Anion Gap 10.0 (3-11) 12/30/20 19:04 BUN 55 mg/dl (7-18) H 12/30/20 19:04 Creatinine 1.87 mg/dl (0.6-1.2) H 12/30/20 19:04 Est Cr Clr Drug Dosing 24.3 ml/min 12/30/20 19:04 Est GFR ( Amer) 30.8 ml/min 12/30/20 19:04 Est GFR (Non-Af Amer) 26.6 ml/min 12/30/20 19:04 BUN/Creatinine Ratio 29.3 (10-20) H 12/30/20 19:04 Glucose 86 mg/dl (70-99) 12/30/20 19:04 POC Glucose 73 mg/dl (70-99) 12/31/20 00:23 Calcium 8.6 mg/dl (8.5-10.1) 12/30/20 19:04 Phosphorus 4.3 mg/dl (2.5-4.9) 12/30/20 19:04 Magnesium 2.2 mg/dl (1.8-2.4) 12/30/20 19:04 Total Bilirubin 0.8 mg/dl (0.2-1) 12/30/20 19:04 AST 48 U/L (15-37) H 12/30/20 19:04 ALT 55 U/L (12-78) 12/30/20 19:04 Alkaline Phosphatase 102 U/L (45-117) 12/30/20 19:04 Total Creatine Kinase 74 U/L (26-192) 12/30/20 19:04 Troponin I 0.171 ng/ml (0-0.045) H* 12/30/20 19:04 Total Protein 7.1 gm/dl (6.4-8.2) 12/30/20 19:04 Albumin 3.4 gm/dl (3.4-5.0) 12/30/20 19:04 Globulin 3.7 gm/dl (2.5-4.0) 12/30/20 19:04 Albumin/Globulin Ratio 0.9 (0.9-2) 12/30/20 19:04 Urine Color Dark Yellow 12/30/20 Unknown Urine Appearance Cloudy (Clear) A 12/30/20 Unknown Urine pH 5.0 (4.5-7.5) 12/30/20 Unknown Ur Specific [place] 1.021 (1.000-1.030) 12/30/20 Unknown Urine Protein 1+ (Negative) H 12/30/20 Unknown Urine Glucose (UA) Negative (Negative) 12/30/20 Unknown Urine Ketones Trace (Negative) H 12/30/20 Unknown Urine Blood Negative (Negative) 12/30/20 Unknown Urine Nitrite Negative (Negative) 12/30/20 Unknown Urine Bilirubin 1+ (Negative) H 12/30/20 Unknown Urine Urobilinogen Negative (Negative) 12/30/20 Unknown Ur Leukocyte Esterase 2+ (Negative) H 12/30/20 Unknown Urine WBC (Auto) 10-30 /hpf (0-5) H 12/30/20 Unknown Urine RBC (Auto) 5-10 /hpf (0-4) H 12/30/20 Unknown U Hyaline Cast (Auto) 5-10 /lpf (0-5) H 12/30/20 Unknown U Epithel Cells (Auto) >30 /lpf (0-5) H 12/30/20 Unknown Urine Bacteria (Auto) Negative (Negative) 12/30/20 Unknown Ur Renal Epithelial Cell Not Reportable 12/30/20 Unknown Granular Casts 1-5 /lpf (0) H 12/30/20 Unknown Urine Yeast Not Reportable 12/30/20 Unknown Anaplasma Smear See Comment 12/30/20 19:04 Lyme Disease IgG Ab Negative (Negative) 12/30/20 19:04 Lyme Disease IgM Ab Negative (Negative) 12/30/20 19:04 COVID-19 Eval Order Covid19 at [facility] 12/30/20 22:12 SARS-CoV-2 (PCR) NEGATIVE (Negative) 12/30/20 22:12 Impressions Chest X-Ray 12/30/20 19:51 XR chest 1V portable CLINICAL HISTORY: weak COMPARISON STUDY: Chest radiograph July 18, 2020. FINDINGS: Lung volumes are normal. Lungs are clear. There is no pneumothorax or pleural effusion. Cardiomegaly is unchanged. Extensive mitral annular calcification is again noted. There may be an occluder device within the left atrial appendage. IMPRESSION: No acute cardiopulmonary findings. Cardiomegaly. ACT 112: Negative or not required by law. Electronically signed by: Chacho Griggs M.D. 12/30/2020 8:39 PM PG Care Time/CCT Total # of Minutes Spent Total Time Spent with Patient: Total time spent is greater than 50% in coordination of care (as documented) at patient's floor/unit and/or counseling patient: Coding Level of Care Code 47940 OBS Care - Level 3 Diagnoses Hypotension I95.89 Hypotension type: other hypotension type Atrial fibrillation I48.20 Atrial fibrillation type: unspecified chronic Acute Lyme disease A69.20 CHF (congestive heart failure) I50.9 Heart failure type: unspecified Heart failure chronicity: unspecified RHODA (obstructive sleep apnea) G47.33 Diabetes mellitus, type 2 E11.59 Diabetes mellitus complication detail: with other circulatory complications Diabetes mellitus complication status: with circulatory complication Diabetes mellitus vermin exterminator insulin use: without vermin exterminator use Asthma, mild persistent J45.30 Asthma complication type: uncomplicated Hypothyroidism E03.9 Hypothyroidism type: unspecified Anxiety F41.9 CAD (coronary artery disease) I25.10 Coronary Disease-Associated Artery/Lesion type: [place] artery [place] vs. transplanted heart: [place] heart Associated angina: without angina Chronic kidney disease N18.9 Chronic kidney disease stage: unspecified stage (1) Diabetes mellitus, type 2 Diabetes mellitus complication detail: with other circulatory complications Diabetes mellitus complication status: with circulatory complication Diabetes mellitus correction insulin use: without vermin exterminator use Qualified Code(s): E11.59 - Type 2 diabetes mellitus with other circulatory complications (2) CAD (coronary artery disease) Coronary Disease-Associated Artery/Lesion type: [place] artery [place] vs. transplanted heart: [place] heart Associated angina: without angina Qualified Code(s): I25.10 - Atherosclerotic heart disease of [place] coronary artery without angina pectoris (3) CHF (congestive heart failure) Heart failure type: unspecified Heart failure chronicity: unspecified Qualified Code(s): I50.9 - Heart failure, unspecified (4) Hypothyroidism Hypothyroidism type: unspecified Qualified Code(s): E03.9 - Hypothyroidism, unspecified (5) Chronic kidney disease Chronic kidney disease stage: unspecified stage Qualified Code(s): N18.9 - Chronic kidney disease, unspecified (6) Asthma, mild persistent Asthma complication type: uncomplicated Qualified Code(s): J45.30 - Mild persistent asthma, uncomplicated (7) Hypotension Hypotension type: other hypotension type Qualified Code(s): I95.89 - Other hypotension (8) Atrial fibrillation Atrial fibrillation type: unspecified chronic Qualified Code(s): I48.20 - Chronic atrial fibrillation, unspecified
[2020-12-31] MEDS ORDERED: GLUCAGON FOR INJ 1 MG VIAL SQ PRN (00:18)
[2020-12-31] MEDS ORDERED: ONDANSETRON INJ 2 MG/ML 2 ML VIAL IV PRN (00:18)
[2020-12-31] MEDS ORDERED: GLUCOSE 10 TABS/TUBE PO PRN (00:18)
[2020-12-31] MEDS ORDERED: DOCUSATE SODIUM 100 MG CAP PO PRN (00:18)
[2020-12-31] MEDS ORDERED: GLUCOSE 40% GEL 15 GM TUBE PO PRN (00:18)
[2020-12-31] MEDS ORDERED: ACETAMINOPHEN 325 MG TAB PO PRN (00:18)
[2020-12-31] MEDS ORDERED: DEXTROSE 50% 50 ML SYRINGE IV PRN (00:18)
[2020-12-31] MEDS ORDERED: CARBOHYDRATES FOR HYPOGLYCEMIA PO PRN (00:18)
[2020-12-31] MEDS: LACTATED RINGER'S 1,000 ML IV SCH ×2 (00:33→09:15)
[2020-12-31 00:55] LABS: Magnesium 2.2 mg/dl (1.8-2.4); Phosphorus 4.3 mg/dl (2.5-4.9)
[2020-12-31] MEDS: APIXABAN 5 MG TABLET PO SCH ×3 (01:05→20:49)
[2020-12-31] MEDS ORDERED: DOXYCYCLINE HYCLATE 100 MG in DEXTROSE 5% 100 ML IV STA (01:07)
[2020-12-31] MEDS ORDERED: ATIVAN 1MG HOMEPACK PO PRN (03:15)
[2020-12-31 03:17] LABS: Basophils # (auto) 0.02 K/uL (0-0.2); Basophils % (auto) 0.5 %; Eosinophils % (auto) 2.3 %; Hematocrit (blood only) 36.2 % (37-47); Hemoglobin 12.1 g/dL (12.0-16.0); Immature Granulocytes # (auto) 0.01 K/uL (0.00-0.02); Immature Granulocytes % (auto) 0.2 %; Lymphocytes # (auto) 0.79 K/uL (1.2-3.4); Lymphocytes % (auto) 18.5 %; Mean Corpuscular Hemoglobin 29.1 pg (25-34); Mean Corpuscular Hgb Conc 33.4 g/dL (32-36); Mean Platelet Volume 10.3 fL (7.4-10.4); Monocytes # (auto) 0.29 K/uL (0.11-0.59); Monocytes % (auto) 6.8 %; Neutrophils # (auto) 3.06 K/uL (1.4-6.5); Neutrophils % (auto) 71.7 %; Platelet Count 104 K/uL (130-400); RDW Coefficient of Variation 14.4 % (11.5-14.5); RDW Standard Deviation 45.9 fL (36.4-46.3); Red Blood Count 4.16 M/uL (4.2-5.4); White Blood Count 4.27 K/uL (4.8-10.8)
[2020-12-31] MEDS ORDERED: LORazepam 1 MG TAB PO PRN (03:22)
[2020-12-31 03:35] LABS: Echinocytes 1+
[2020-12-31 03:38] LABS: Albumin Level 2.9 gm/dl (3.4-5.0); BUN Creatinine Ratio 35.8 (10-20); Bilirubin Direct 0.3 mg/dl (0-0.2); Creatinine Clr Calc Pharmacy 36.9 ml/min; Est GFR (African American) 49.2 ml/min; Est GFR (Non-African American) 42.4 ml/min; Potassium 4.4 mmol/L (3.5-5.1)
[2020-12-31 03:49] LABS: Bilirubin,Total 0.5 mg/dl (0.2-1); Thyroid Stimulating Hormone 0.907 uIu/ml (0.300-4.500); Total Protein 6.2 gm/dl (6.4-8.2)
[2020-12-31] MEDS: LEVOTHYROXINE SODIUM 112 MCG TABLET PO SCH (06:06)
[2020-12-31] MEDS ORDERED: DOXYCYCLINE HYCLATE 100 MG CAP PO SCH (07:00)
[2020-12-31] MEDS: ASPIRIN 81 MG ECTAB PO SCH (07:36)
[2020-12-31] MEDS: ATORVASTATIN 40 MG TAB PO SCH (07:36)
[2020-12-31] MEDS: DRONEDARONE HCL 400 MG TAB PO SCH ×2 (07:36→17:34)
[2020-12-31] MEDS: DIGOXIN 0.125 MG TAB PO SCH (07:37)
[2020-12-31] MEDS: INSULIN ASPART 100 UNITS/ML 3 ML PEN SC SCH ×4 (08:46→20:48)
--- NOTE | 2020-12-31 10:50 | Hospitalist Progress Note ---
Date of Service December 31, 2020 Assessment & Plan (1) Cellulitis: vs. acute lyme. x2 rashes at the same time, rapid progression and thrombocytopenia would favor the latter. Given progression will add ceftriaxone to doxycycline. Will consider addition of vancomycin if continues to progress. (2) Acute Lyme disease: Patient with well circumscribed rash on right chest wall. [place] but does not recall having any tick bites. She is thrombocytopenic, leukopenic as well. If she had a tick bite recently labs may not show acute infection. Anaplasma pending -Doxycycline 100mg BID switch to IV -No blood cultures taken on admission, follow up anaplasma (3) Hypotension: 70yo female presents with 2 weeks of progressive fatigue. She has had several readings of low blood pressure on her home wrist cuff. ?Dehydration contributing, ?medication effects. Patient reported a single episode of fever 2 days ago but has not had one since. Some concern for tick-borne illness (see below) -Gentle IVF, stop benazepril -Continue to monitor (4) Atrial fibrillation: With RVR. She is anticoagulated with Apixaban. On Dronedarone for rhythm control. She has had a Watchman device placed in October - plans to transition off anticoagulation to Plavix in future. She follows with Cardiology -transfer to med/tele -Digoxin level WNL -Continue Apixaban -Continue Digoxin -Continue Dronedarone Consult cardiology as may need cardioversion given troponin elevated in setting of chest discomfort. Rate/rhythm not resolved overnight with adequate fluid resuscitation. (5) CHF (congestive heart failure): Chronic. Well controlled -Continue home medications - avoid overhydration (6) RHODA (obstructive sleep apnea): Chronic -CPAP 6cm H2O qHS (7) Diabetes mellitus, type 2: Well controlled -Hold Metformin -ISS -Goal blood sugar 100 - 140 HbA1C with AM labs (8) Asthma, mild persistent: (9) Hypothyroidism: Chronic. TSH WNL -Continue Synthroid 112mcg daily (10) Anxiety: Chronic. Patient currently feels anxious -Ativan 1mg po QID PRN (11) CAD (coronary artery disease): Chronic. Stable. Patient has had elevated troponin in the past -Repeat troponin -Continue home meds - ASA, Atorvastatin (12) Chronic kidney disease: Near baseline F/E/N - LR at 100mL/hr x 2L, CC diet as tolerated, Continue PO Magnesium Ppx- On Apixaban Code -Full Dispo - Continue observation to medical with telemetry Admission and Anticipated Discharge Date Admission Date: December 30, 2020 Subjective Patient in atrial fibrillation with RVR since arrival. Feeling mild chest tightness with this. Previously intolerant to many oral therapies and usually spontaneously converts. Maintained on Multaq. But occasionally will need cardioversion. Rash increased since yesterday despite doxycycline, suspected to be tick-borne given occurrence in two different places. No fever, chills or fluid collection Review of Systems Review of Systems: All systems reviewed & are unremarkable except as noted in HPI & below Physical Exam Constitutional: WD/WN, vitals as above Eyes: + anicteric sclerae; normal pupil size Respiratory: normal respiratory effort, lungs clear to auscultation Cardiovascular: Rate/Rhythm: + tachycardic and + irregularly irregular Hear t Sounds: no murmur Extremities: normal capillary refill; no calf tenderness and no pedal edema Gastrointestinal (Abdomen): normal bowel sounds, soft, nontender, no hepatosplenomegaly Musculoskeletal: no cyanosis or clubbing, extremities motor strength 5/5 Skin: + erythema (expanded erythema from marked area on right chest and right interdigit spac) Neurologic: moves all extremities and awake; not confused Psychiatric: A+Ox3, euthymic affect Results & Data [facility] ([facility] Vital Signs (Past 12 Hours) Vital Signs Temp Pulse Resp BP Pulse Ox 12/31/20 07:40 37.2 C 134 H 16 132/85 96 12/31/20 00:15 36.6 C 117 H 18 94/57 L 99 12/30/20 23:33 99 H 20 110/89 97 PG Care Time/CCT Total # of Minutes Spent Total Time Spent with Patient: Total time spent is greater than 50% in coordination of care (as documented) at patient's floor/unit and/or counseling patient: Coding Level of Care Code 55647 Subseq Obs Care Lvl 3 Diagnoses Cellulitis L03.90 Acute Lyme disease A69.20 Hypotension I95.89 Hypotension type: other hypotension type Atrial fibrillation I48.20 Atrial fibrillation type: unspecified chronic CHF (congestive heart failure) I50.9 Heart failure chronicity: unspecified Heart failure type: unspecified RHODA (obstructive sleep apnea) G47.33 Diabetes mellitus, type 2 E11.59 Diabetes mellitus complication detail: with other circulatory complications Diabetes mellitus complication status: with circulatory complication Diabetes mellitus skilled nursing insulin use: without adjunct faculty for medical terminology use Asthma, mild persistent J45.30 Asthma complication type: uncomplicated Hypothyroidism E03.9 Hypothyroidism type: unspecified Anxiety F41.9 CAD (coronary artery disease) I25.10 Associated angina: without angina Coronary Disease-Associated Artery/Lesion type: [place] artery [place] vs. transplanted heart: [place] heart Chronic kidney disease N18.9 Chronic kidney disease stage: unspecified stage (1) Diabetes mellitus, type 2 Diabetes mellitus complication detail: with other circulatory complications Diabetes mellitus complication status: with circulatory complication Diabetes mellitus skilled nursing insulin use: without skilled nursing use Qualified Code(s): E11.59 - Type 2 diabetes mellitus with other circulatory complications (2) CAD (coronary artery disease) Associated angina: without angina Coronary Disease-Associated Artery/Lesion type: [place] artery [place] vs. transplanted heart: [place] heart Qualified Code(s): I25.10 - Atherosclerotic heart disease of [place] coronary artery without angina pectoris (3) CHF (congestive heart failure) Heart failure chronicity: unspecified Heart failure type: unspecified Qualified Code(s): I50.9 - Heart failure, unspecified (4) Atrial fibrillation Atrial fibrillation type: unspecified chronic Qualified Code(s): I48.20 - Chronic atrial fibrillation, unspecified (5) Hypothyroidism Hypothyroidism type: unspecified Qualified Code(s): E03.9 - Hypothyroidism, unspecified (6) Chronic kidney disease Chronic kidney disease stage: unspecified stage Qualified Code(s): N18.9 - Chronic kidney disease, unspecified (7) Asthma, mild persistent Asthma complication type: uncomplicated Qualified Code(s): J45.30 - Mild persistent asthma, uncomplicated (8) Hypotension Hypotension type: other hypotension type Qualified Code(s): I95.89 - Other hypotension
[2020-12-31] MEDS: cefTRIAXone SODIUM 2,000 MG in DEXTROSE 5% 50 ML IV SCH (12:09)
--- NOTE | 2020-12-31 14:58 | Cardiology Consultation ---
Date of Consultation December 31, 2020 Assessment & Plan (1) Paroxysmal atrial fibrillation: (2) Hypotension: (3) Elevated troponin: (4) Aortic stenosis: (5) Mitral regurgitation and mitral stenosis: (6) CAD (coronary artery disease): (7) Chronic diastolic CHF (congestive heart failure): ASSESSMENT/PLAN: 1. Paroxysmal atrial fibrillation: Currently in AFib with RVR. Heart rate has improved somewhat. She is asymptomatic at this time. Has had intermittent episodes despite remaining on dronedarone. She has had AFib ablation in the past as well. She does not tolerate amiodarone. Given intermittent hypotension, will not add further rate-controlling medication at this time as he r heart rate is only mildly tachycardic. Hopefully with her acute illness improving, she may convert back to sinus rhythm. If not, would consider elective DC cardioversion. NPO after midnight tonight. She states that she has not missed any doses of anticoagulation therapy for at least 4 weeks. Continue Eliquis. At some point in the future, Dr. De Souza has discussed transitioning to anti-platelet therapy following Watchman device given history of spontaneous intracranial bleed. Repeat digoxin level tomorrow morning before her next dose. Digoxin level may be a bit more elevated due to the fact that the level was not a trough and also she had renal insufficiency, which has improved with IV fluids. 2. Hypotension: Overall has improved. Still occasional mild hypotension. Symptomatic improvement as well. Likely related to her acute illness with fever, erythematous/rash areas. She was also likely hypovolemic given reduced oral intake. She currently appears euvolemic. 3. Aortic stenosis/regurgitation: Non severe when last evaluated. Could consider repeating echo as her last evaluation of her aortic stenosis was in July. Echo not done at this time given tachycardia while in AFib. Would likely get more useful information with better heart rate control. 4. Mitral regurgitation/stenosis: Was recently evaluated during transesophageal echo. Continue to monitor over time. 5. CAD: Nonobstructive in 2018. No angina. Risk factor modification. Continue statin therapy. 6. Elevated troponin: Likely due to demand ischemia in the setting of moderate valvular disease, tachycardia, hypotension, hypovolemia, and acute febrile illness. She did not present with acute coronary syndrome. 7. Chronic diastolic CHF: As per history. She does not require diuretic at kenyon e. She appears euvolemic currently but was likely hypovolemic on presentation. Not an acute issue. 8. Febrile illness/rash: Will defer to primary hospitalist service. She is currently on antibiotic therapy and has further testing pending. 9. Disposition: Cardiology will continue to follow. Plan of care discussed with her primary risk control officer Dr. De Souza, who will likely resume her care simran marte. Plan of care communicated with Dr. Jensen of the primary hospitalist service. Thank you for allowing me to participate in the care of your patient. Please call for any other questions or concerns. Sincerely, Matty Hackett M.D. History of Present Illness Reason for Consultation: Atrial fibrillation with RVR Requesting Physician: Joshua Jensen MD Attending Physician: Joshua Jensen MD History of Present Illness Mrs. Farley is a pleasant 70-year-old female with history significant for paroxysmal atrial fibrillation on dronedarone s/p Watchman device, chronic diastolic CHF, non severe rheumatic heart disease including mitral stenosis/regurgitation and aortic stenosis/regurgitation, diabetes, and nonobstructive CAD (cath 08/27/17). 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 Bell). Her primary risk control officer is Dr. De Souza. In regards to her atrial fibrillation, she has undergone ablation in the past and has had cardioversions and different antiarrhythmic therapies. She has not tolerated amiodarone. She has had the following studies/procedures: 1. AFib ablation August 2016. 2. Cardiac catheterization 08/27/2017: Mid LAD 40%. Proximal circumflex 20- 30%. Mid circumflex 30-40%. Dominant RCA with distal RCA 20%. 3. Echo 08/07/2020: Normal LV size, wall motion, systolic function. EF 65-70%. Moderate LVH. Rheumatic mitral valve disease. Moderate MS with mild MR. Moderate to severe (PV 3.92; MG 29; JENISE 1.1; DI 0.34). Moderate AI. Severe left atrial dilation. 4. AUGIE 10/07/2020: Normal LV size, wall motion, systolic function. EF 60-65%. Moderate LVH. Severe left atrial dilation. Moderate AI. Unable to assess parameters. Rheumatic mitral valve disease with moderate MS (MG 6.9; MVA 1.3; MV P1/2T 175 cm/s). Mild MR. Mildly dilated ascending aorta. 5. Watchman device implantation 11/06/2020 AG: 31 mm device. 6. DC cardioversion October 2020 [facility]: Elective procedure during hospitalization following Watchman device implantation. She was admitted on 12/30/2020 has had 1-2 weeks of progressive fatigue. She states that she was just "not right."She had noted lightheadedness, and steadiness on her feet, overall weakness. Then approximately 3 days ago, she noted a fever of 102 F. She took Tylenol with improvement. She admits that she had shaking chills. Then for the past 2 days, she had noted worsening lightheadedness. She checks her blood pressure twice daily and because readings were lower than usual, she use 2 different cuffs with similar results. She brought her blood pressure cuffs with her to the hospital and had be review her history. She had systolic blood pressures as low as 77 with diastolic in the low 40s. Blood pressures did very mostly in the 80s to 90s. Her heart rate was in the 60s to 90s but occasionally as high as 156 beats per minute. She occasionally feels palpitations and figure that she was in atrial fibrillation. Despite that, she does not feel palpitations now even though she remains in AFib with RVR on telemetry. Even before she has had this recent illness, she does have occasional palpitations and she underwent cardioversion during a recent hospitalization in October of 2020 at [facility] when she underwent the Watchman device. She states that she has been compliant with dronedarone and Eliquis, without missing any doses for the past 4 weeks at least. Yesterday, she noted that her right hand was per reticular and then became hot, red, swollen, and painful. This has been outlined by nursing staff here. When she was changing into her gown in the emergency department, she noted a similar area on the right side of her chest and since then, a smaller area on the right side of her back. She does not know the etiology for this, but hospitalist service has suspected possible tick bite. She is now on antibiotic therapy. She has not noted any ticks on her body but admits that [place] and is outside. She also has 3 cats. She was given IV fluids. Her BUN and creatinine were elevated on presentation but have improved. Overall, she feels much better. She admits that her appetite had been reduced and she has had less p.o. intake prior to presentation. She denies chest pain, syncope, near-syncope, shortness of breath, orthopnea, edema, or bleeding. Review of systems: As above. Review of systems otherwise negative/unremarkable. Family history: Father had CAD. Social history: She denies tobacco, alcohol, or drug abuse. She lives at home with her . They have 1 daughter. Two grandchildren. She often watches her grandchildren. She was unaccompanied today. Allergies Allergy/AdvReac Type Severity Reaction Status Date / Time azithromycin [From Zithromax] Allergy Severe LEUKOCYTOPLASTIC Verified 12/30/20 20:07 VASCULITIS amiodarone Allergy Intermediate TREMORS, Verified 12/30/20 20:07 UNSTEADY GAIT, PHOTOSENSITIVITY, AGITATED NSAIDS (Non-Steroidal Allergy Intermediate HIGH BP - Verified 12/30/20 20:07 Anti-Inflamma AVOID, GASTRIC UPSET/GI BLEEDING povidone Allergy Mild RASH Verified 12/30/20 20:07 adhesive AdvReac Mild RASH Verified 12/30/20 20:07 Home Medications Medication Instructions Recorded Confirmed Type ascorbic acid (vitamin C) [Vitamin 1,000 mg PO QAM 04/08/18 12/30/20 History C] lysine 500 mg PO QAM 04/08/18 12/30/20 History metformin 500 mg PO BIDM 04/08/18 12/30/20 History cetirizine 10 mg tablet 10 mg PO DAILY PRN tab 04/13/19 12/30/20 History cholecalciferol (vitamin D3) 25 5,000 units PO PM tab 04/13/19 12/30/20 History mcg (1,000 unit) tablet cyanocobalamin (vitamin B-12) 1,000 mcg PO PM tab 04/13/19 12/30/20 History 1,000 mcg tablet lorazepam 1 mg tablet 1 mg PO QID PRN tab 04/13/19 12/30/20 History magnesium oxide 400 mg (241.3 mg 400 mg PO PM tab 04/13/19 12/30/20 History magnesium) tablet melatonin 10 mg capsule 10 mg PO HS cap 04/13/19 12/30/20 History pyridoxine (vitamin B6) 100 mg 50 mg PO PM tab 04/13/19 12/30/20 History tablet vitamin E succinate 400 unit tablet 400 units PO QAM tab 04/13/19 12/30/20 History albuterol sulfate 90 mcg/actuation 2 puffs INH Q4H PRN #18 gm 08/30/19 12/30/20 Rx aerosol inhaler fluticasone propionate 2 sprays INTNAS DAILY PRN 12/26/19 12/30/20 History Align 4 mg PO PM 02/21/20 12/30/20 History benazepril 10 mg tablet 10 mg PO QAM 05/17/20 12/30/20 History atorvastatin 40 mg PO QAM 07/18/20 12/30/20 History dronedarone 400 mg tablet 400 mg PO BIDM #180 tab 09/23/20 12/30/20 Rx levothyroxine 112 mcg PO QAM 10/02/20 12/30/20 History apixaban 5 mg tablet 5 mg PO BID 11/21/20 12/30/20 History digoxin 125 mcg (0.125 mg) tablet 125 mcg PO DAILY #30 tab 12/03/20 12/30/20 Rx aspirin 81 mg PO DAILY 12/30/20 12/30/20 History Patient History Medical History (Updated 12/31/20 @ 14:46 by Anson Hackett MD) Anxiety Aortic stenosis MODERATE TO SEVERE PER RECORDS MODERATE AR Asthma, mild persistent HAS NOT USED RESCUE INHALER FOR A COUPLE MONTHS Atrial fibrillation CAD (coronary artery disease) MILD TO MODERATE NONOBSTRUCTIVE - STABLE ON MOST RECENT CATH IN 2018 Chronic kidney disease STAGE 3 Chronic obstructive pulmonary disease Congestive heart failure CHRONIC DIASTOLIC Diabetes mellitus, type 2 History of anemia Hypothyroidism Mitral regurgitation MODERATE ALSO WITH MODERATE MV STENOSIS Mitral regurgitation and mitral stenosis Paroxysmal atrial fibrillation Presence of Watchman left atrial appendage closure device Sleep apnea CPAP Stenosis of left internal carotid artery S/p left CEA in 2018 Stress incontinence in female Stroke 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 (STILL HAS BALANCE PROBLEMS AND A FLOATER IN RT EYE) Transient retinal arterial occlusion, right 2018- CARDIOEMBOLIC WHILE ON DOAC Surgical History (Updated 10/02/20 @ 09:27 by Emmy Morales PA-C) Family history of reaction to anesthesia MOTHER DURING HYSTERECTOMY 65 YEARS AGO (ANAPHYLACTIC SHOCK) H/O hemorrhoidectomy History of breast biopsy BENIGN History of cardiac cath [facility] 2017 NO STENTS History of cardiac radiofrequency ablation [facility], 2017 History of cardioversion SUMMER 2017 AT [facility] History of CEA (carotid endarterectomy) LEFT History of colonoscopy History of dilatation and curettage History of excision of pilonidal cyst History of revision of total knee arthroplasty History of revision of total knee arthroplasty RT History of tooth extraction History of total knee replacement RT/LEFT History of transesophageal echocardiography (AUGIE) Family History (Updated 10/02/20 @ 08:40 by Shey Barriga RN) Father Family history of diabetes mellitus Brother Family history of diabetes mellitus Other Family history non-contributory Social History Smoking Status: Never smoker Second Hand Exposure: Yes (IN THE PAST); Hx Alcohol Use: Yes Alcohol type: hard liquor Hx Substance Use: No Preferred Language: Qatari Communication Ability: Effective Visual Impairment: No 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 Alert and oriented. HEENT: Anicteric sclera. Neck: No JVD. Bilateral carotid bruits versus radiation of cardiac murmur. Normal carotid upstrokes bilaterally. Cardiac: PMI was nonpalpable. No ventricular heave. Irregularly irregular and mildly tachycardic. Normal S1-S2. 2/6 systolic ejection murmur. No rubs or gallops. Pulmonary: Clear to auscultation bilaterally without wheezes, rales, or rhonchi. Abdomen: Soft, nontender, nondistended, with normoactive bowel sounds. No bruits noted. Extremities: 2+ radial pulses bilaterally. 2+ posterior tibialis pulses bilaterally. Trace bilateral pedal edema. No cyanosis. Psychiatric: Affect appears appropriate. Skin: Right hand is erythematous and swollen in appearance. Right chest erythematous area. Small erythematous area on the right back. Results & Data ([facility]) Vital Signs (Past 12 Hours) Vital Signs Temp Pulse Resp BP Pulse Ox 06/08/21 12:12 36.9 C 74 18 96/65 L 96 12/31/20 07:40 37.2 C 134 H 16 132/85 96 Intake & Output 12/29/20 12/30/20 12/31/20 01/01/21 06:59 06:59 06:59 06:59 Intake Total 1160 / 1160 1260 / 1260 Output Total 490 / 490 Balance 670 / 670 1260 / 1260 Weight 170 lb 10.205 oz Laboratory Results Laboratory Results - last 24 hr 12/30/20 12/30/20 12/30/20 19:04 19:04 19:04 WBC 4.10 L RBC 4.59 Hgb 13.4 Hct 40.5 MCV 88.2 MCH 29.2 MCHC 33.1 RDW Std Deviation 47.0 H RDW Coeff of Dru 14.6 H Plt Count 128 L MPV 10.3 Immature Gran % (Auto) 0.2 Neut % (Auto) 63.2 Lymph % (Auto) 19.8 [place] % (Auto) 13.9 Eos % (Auto) 2.2 Baso % (Auto) 0.7 Neut # (Auto) 2.59 Lymph # (Auto) 0.81 L [place] # (Auto) 0.57 Eos # (Auto) 0.09 Baso # (Auto) 0.03 Immature Gran # (Auto) 0.01 Absolute Nucleated RBC 0.00 Nucleated RBC % (auto) 0.0 Echinocytes 1+ Sodium 138 Potassium 4.6 Chloride 104 Carbon Dioxide 24 Anion Gap 10.0 BUN 55 H Creatinine 1.87 H Est Cr Clr Drug Dosing 24.3 Est GFR ( Amer) 30.8 Est GFR (Non-Af Amer) 26.6 BUN/Creatinine Ratio 29.3 H Glucose 86 POC Glucose Calcium 8.6 Phosphorus 4.3 Magnesium 2.2 Total Bilirubin 0.8 Direct Bilirubin AST 48 H ALT 55 Alkaline Phosphatase 102 Total Creatine Kinase 74 Troponin I 0.171 H* Total Protein 7.1 Albumin 3.4 Globulin 3.7 Albumin/Globulin Ratio 0.9 TSH Urine Color Urine Appearance Urine pH Ur Specific [place] Urine Protein Urine Glucose (UA) Urine Ketones Urine Blood Urine Nitrite Urine Bilirubin Urine Urobilinogen Ur Leukocyte Esterase Urine WBC (Auto) Urine RBC (Auto) U Hyaline Cast (Auto) U Epithel Cells (Auto) Urine Bacteria (Auto) Ur Renal Epithelial Cell Granular Casts Urine Yeast Digoxin Anaplasma Smear See Comment A. phagocytophilum DNA Lyme Disease IgG Ab Negative Lyme Disease IgM Ab Negative COVID-19 Eval Order SARS-CoV-2 (PCR) Hepatitis C Ab Screen 12/30/20 12/30/20 12/30/20 22:12 22:12 Unknown WBC RBC Hgb Hct MCV MCH MCHC RDW Std Deviation RDW Coeff of Dru Plt Count MPV Immature Gran % (Auto) Neut % (Auto) Lymph % (Auto) [place] % (Auto) Eos % (Auto) Baso % (Auto) Neut # (Auto) Lymph # (Auto) [place] # (Auto) Eos # (Auto) Baso # (Auto) Immature Gran # (Auto) Absolute Nucleated RBC Nucleated RBC % (auto) Echinocytes Sodium Potassium Chloride Carbon Dioxide Anion Gap BUN Creatinine Est Cr Clr Drug Dosing Est GFR ( Amer) Est GFR (Non-Af Amer) BUN/Creatinine Ratio Glucose POC Glucose Calcium Phosphorus Magnesium Total Bilirubin Direct Bilirubin AST ALT Alkaline Phosphatase Total Creatine Kinase Troponin I Total Protein Albumin Globulin Albumin/Globulin Ratio TSH Urine Color Dark Yellow Urine Appearance Cloudy A Urine pH 5.0 Ur Specific [place] 1.021 Urine Protein 1+ H Urine Glucose (UA) Negative Urine Ketones Trace H Urine Blood Negative Urine Nitrite Negative Urine Bilirubin 1+ H Urine Urobilinogen Negative Ur Leukocyte Esterase 2+ H Urine WBC (Auto) 10-30 H Urine RBC (Auto) 5-10 H U Hyaline Cast (Auto) 5-10 H U Epithel Cells (Auto) >30 H Urine Bacteria (Auto) Negative Ur Renal Epithelial Cell Not Reportable Granular Casts 1-5 H Urine Yeast Not Reportable Digoxin Anaplasma Smear A. phagocytophilum DNA Lyme Disease IgG Ab Lyme Disease IgM Ab COVID-19 Eval Order Covid19 at [facility] SARS-CoV-2 (PCR) NEGATIVE Hepatitis C Ab Screen 12/31/20 12/31/20 12/31/20 00:23 03:01 03:01 WBC RBC Hgb Hct MCV MCH MCHC RDW Std Deviation RDW Coeff of Dru Plt Count MPV Immature Gran % (Auto) Neut % (Auto) Lymph % (Auto) [place] % (Auto) Eos % (Auto) Baso % (Auto) Neut # (Auto) Lymph # (Auto) [place] # (Auto) Eos # (Auto) Baso # (Auto) Immature Gran # (Auto) Absolute Nucleated RBC Nucleated RBC % (auto) Echinocytes Sodium Potassium Chloride Carbon Dioxide Anion Gap BUN Creatinine Est Cr Clr Drug Dosing Est GFR ( Amer) Est GFR (Non-Af Amer) BUN/Creatinine Ratio Glucose POC Glucose 73 Calcium Phosphorus Magnesium Total Bilirubin Direct Bilirubin AST ALT Alkaline Phosphatase Total Creatine Kinase Troponin I 0.173 H* Total Protein Albumin Globulin Albumin/Globulin Ratio TSH Urine Color Urine Appearance Urine pH Ur Specific [place] Urine Protein Urine Glucose (UA) Urine Ketones Urine Blood Urine Nitrite Urine Bilirubin Urine Urobilinogen Ur Leukocyte Esterase Urine WBC (Auto) Urine RBC (Auto) U Hyaline Cast (Auto) U Epithel Cells (Auto) Urine Bacteria (Auto) Ur Renal Epithelial Cell Granular Casts Urine Yeast Digoxin 1.7 Anaplasma Smear A. phagocytophilum DNA Lyme Disease IgG Ab Lyme Disease IgM Ab COVID-19 Eval Order SARS-CoV-2 (PCR) Hepatitis C Ab Screen 12/31/20 12/31/20 12/31/20 03:01 03:01 03:01 WBC 4.27 L RBC 4.16 L Hgb 12.1 Hct 36.2 L MCV 87.0 MCH 29.1 MCHC 33.4 RDW Std Deviation 45.9 RDW Coeff of Dru 14.4 Plt Count 104 L MPV 10.3 Immature Gran % (Auto) 0.2 Neut % (Auto) 71.7 Lymph % (Auto) 18.5 [place] % (Auto) 6.8 Eos % (Auto) 2.3 Baso % (Auto) 0.5 Neut # (Auto) 3.06 Lymph # (Auto) 0.79 L [place] # (Auto) 0.29 Eos # (Auto) 0.10 Baso # (Auto) 0.02 Immature Gran # (Auto) 0.01 Absolute Nucleated RBC Nucleated RBC % (auto) Echinocytes 1+ Sodium 139 Potassium 4.4 Chloride 108 H Carbon Dioxide 23 Anion Gap 8.0 BUN 45 H Creatinine 1.27 H D Est Cr Clr Drug Dosing 36.9 Est GFR ( Amer) 49.2 Est GFR (Non-Af Amer) 42.4 BUN/Creatinine Ratio 35.8 H Glucose 89 POC Glucose Calcium 8.0 L Phosphorus Magnesium Total Bilirubin 0.5 Direct Bilirubin 0.3 H AST 38 H ALT 45 Alkaline Phosphatase 88 Total Creatine Kinase Troponin I Total Protein 6.2 L Albumin 2.9 L Globulin Albumin/Globulin Ratio TSH 0.907 Urine Color Urine Appearance Urine pH Ur Specific [place] Urine Protein Urine Glucose (UA) Urine Ketones Urine Blood Urine Nitrite Urine Bilirubin Urine Urobilinogen Ur Leukocyte Esterase Urine WBC (Auto) Urine RBC (Auto) U Hyaline Cast (Auto) U Epithel Cells (Auto) Urine Bacteria (Auto) Ur Renal Epithelial Cell Granular Casts Urine Yeast Digoxin Anaplasma Smear A. phagocytophilum DNA Lyme Disease IgG Ab Lyme Disease IgM Ab COVID-19 Eval Order SARS-CoV-2 (PCR) Hepatitis C Ab Screen Neg 12/31/20 12/31/20 12/31/20 03:01 08:01 11:28 WBC RBC Hgb Hct MCV MCH MCHC RDW Std Deviation RDW Coeff of Dru Plt Count MPV Immature Gran % (Auto) Neut % (Auto) Lymph % (Auto) [place] % (Auto) Eos % (Auto) Baso % (Auto) Neut # (Auto) Lymph # (Auto) [place] # (Auto) Eos # (Auto) Baso # (Auto) Immature Gran # (Auto) Absolute Nucleated RBC Nucleated RBC % (auto) Echinocytes Sodium Potassium Chloride Carbon Dioxide Anion Gap BUN Creatinine Est Cr Clr Drug Dosing Est GFR ( Amer) Est GFR (Non-Af Amer) BUN/Creatinine Ratio Glucose POC Glucose 93 115 H Calcium Phosphorus Magnesium Total Bilirubin Direct Bilirubin AST ALT Alkaline Phosphatase Total Creatine Kinase Troponin I Total Protein Albumin Globulin Albumin/Globulin Ratio TSH Urine Color Urine Appearance Urine pH Ur Specific [place] Urine Protein Urine Glucose (UA) Urine Ketones Urine Blood Urine Nitrite Urine Bilirubin Urine Urobilinogen Ur Leukocyte Esterase Urine WBC (Auto) Urine RBC (Auto) U Hyaline Cast (Auto) U Epithel Cells (Auto) Urine Bacteria (Auto) Ur Renal Epithelial Cell Granular Casts Urine Yeast Digoxin Anaplasma Smear A. phagocytophilum DNA Pending Lyme Disease IgG Ab Lyme Disease IgM Ab COVID-19 Eval Order SARS-CoV-2 (PCR) Hepatitis C Ab Screen Diagnostic Findings Chart reviewed on 12/31/2020. Cardiac catheterization report from 2018 reviewed as noted above in HPI. Transesophageal ECHO in echo reports reviewed as noted above in HPI. ECG personally reviewed: ECG 12/30/2020 at 7:47 p.m.: AFib with RVR 115 beats per minute. RBBB. LAFB. LVH with repolarization abnormality. Telemetry personally reviewed: Atrial fibrillation, often with rapid ventricular response. No significant pauses. Labs reviewed. Chest x-ray 12/30/2020: No acute cardiopulmonary findings per Radiology. Medications Administered Current Inpatient Medications Acetaminophen (Acetaminophen 325 Mg Tab) 650 mg PO Q4H PRN PRN Reason: pain/fever Stop: 01/30/21 00:17 Apixaban (Apixaban 5 Mg Tablet) 5 mg PO BID BARB Stop: 01/30/21 00:29 Last Admin: 12/31/20 10:19 Dose: 5 mg Documented by: Aspirin (Aspirin 81 Mg Ectab) 81 mg PO DAILY BARB Stop: 01/30/21 08:59 Last Admin: 12/31/20 07:36 Dose: 81 mg Documented by: Atorvastatin Calcium (Atorvastatin 40 Mg Tab) 40 mg PO QAM BARB Stop: 01/30/21 08:59 Last Admin: 12/31/20 07:36 Dose: 40 mg Documented by: Dextrose (Dextrose 50% 50 Ml Syringe) 25 - 50 ml IV UD PRN; Protocol PRN Reason: Hypoglycemia Protocol Stop: 01/30/21 00:17 Digoxin (Digoxin 0.125 Mg Tab) 0.125 mg PO DAILY BARB Stop: 01/30/21 08:59 Last Admin: 12/31/20 07:37 Dose: 0.125 mg Documented by: Docusate Sodium (Docusate Sodium 100 Mg Cap) 100 mg PO BID PRN PRN Reason: Constipation Stop: 01/30/21 00:17 Dronedarone (Dronedarone Hcl 400 Mg Tab) 400 mg PO BIDM BARB Stop: 01/30/21 07:59 Last Admin: 12/31/20 07:36 Dose: 400 mg Documented by: Glucagon (Glucagon For Inj 1 Mg Vial) 1 mg SQ UD PRN; Protocol PRN Reason: Hypoglycemia Protocol Stop: 01/30/21 00:17 Glucose (Glucose 10 Tabs/Tube) 4 - 8 tabs PO UD PRN; Protocol PRN Reason: Hypoglycemia Protocol Stop: 01/30/21 00:17 Glucose (Glucose 40% Gel 15 Gm Tube) 15 - 30 gm PO UD PRN; Protocol PRN Reason: Hypoglycemia Protocol Stop: 01/30/21 00:17 Lactated Ringer's (Lr) 1,000 mls @ 100 mls/hr IV .Q10H BARB Stop: 12/31/20 20:29 Last Admin: 12/31/20 09:15 Dose: 100 mls/hr Documented by: Ceftriaxone Sodium 2,000 mg/ (Dextrose) 70 mls @ 100 mls/hr IV DAILY [facility]; Protocol Stop: 01/07/21 09:59 Last Infusion: 12/31/20 12:59 Dose: Infused Documented by: Doxycycline Hyclate 100 mg/ (Dextrose) 110 mls @ 50 mls/hr IV Q12H BARB Stop: 01/07/21 18:59 Insulin Aspart (Insulin Aspart 100 Units/Ml 3 Ml Pen) 0 units SC ACHS BARB Stop: 01/30/21 07:29 Last Admin: 12/31/20 12:41 Dose: Not Given Documented by: Levothyroxine Sodium (Levothyroxine Sodium 112 Mcg Tablet) 112 mcg PO DAILYBB BARB Stop: 01/30/21 06:29 Last Admin: 12/31/20 06:06 Dose: 112 mcg Documented by: Lorazepam (Lorazepam 1 Mg Tab) 1 mg PO QID PRN PRN Reason: anxiety Stop: 01/30/21 03:21 Last Admin: 12/31/20 03:28 Dose: 1 mg Documented by: Magnesium Oxide (Magnesium Oxide 400 Mg Tab) 400 mg PO PM [facility] Stop: 01/30/21 20:59 Melatonin (Melatonin 3 Mg Tab) 9 mg PO HS [facility] Stop: 01/30/21 20:59 Miscellaneous (Carbohydrates For Hypoglycemia ) 15 - 30 gm PO UD PRN PRN Reason: Hypoglycemia Protocol Stop: 01/30/21 00:17 Ondansetron HCl (Ondansetron Inj 2 Mg/Ml 2 Ml Vial) 4 mg IV Q6H PRN PRN Reason: Nausea Stop: 01/30/21 00:17 PG Care Time/CCT Total # of Minutes Spent Total Time Spent with Patient: Total time spent is greater than 50% in coordination of care (as documented) at patient's floor/unit and/or counseling patient: Coding Level of Care Code 39293 Initial Inpt Care Lvl 3 Diagnoses Paroxysmal atrial fibrillation I48.0 Hypotension I95.89 Hypotension type: other hypotension type Elevated troponin R77.8 Aortic stenosis I35.0 Cardiac valve disease etiology: nonrheumatic Mitral regurgitation and mitral stenosis I05.2 CAD (coronary artery disease) I25.10 Coronary Disease-Associated Artery/Lesion type: [place] artery [place] vs. transplanted heart: [place] heart Associated angina: without angina Chronic diastolic CHF (congestive heart failure) I50.32 (1) Hypotension Hypotension type: other hypotension type Qualified Code(s): I95.89 - Other hypotension (2) Aortic stenosis Cardiac valve disease etiology: nonrheumatic Qualified Code(s): I35.0 - Nonrheumatic aortic (valve) stenosis (3) CAD (coronary artery disease) Coronary Disease-Associated Artery/Lesion type: [place] artery [place] vs. transplanted heart: [place] heart Associated angina: without angina Qualified Code(s): I25.10 - Atherosclerotic heart disease of [place] coronary artery without angina pectoris
[2020-12-31] MEDS: DOXYCYCLINE HYCLATE 100 MG in DEXTROSE 5% 100 ML IV SCH (18:21)
[2020-12-31] MEDS: MAGNESIUM OXIDE 400 MG TAB PO SCH (20:49)
[2020-12-31] MEDS: MELATONIN 3 MG TAB PO SCH (20:49)
--- NOTE | 2021-01-01 05:37 | Electrocardiogram Report ---
Test Reason : Blood Pressure : / mmHG Vent. Rate : 115 BPM Atrial Rate : 120 BPM P-R Int : 000 ms QRS Dur : 134 ms QT Int : 358 ms P-R-T Axes : 000 -68 105 degrees QTc Int : 495 ms Atrial fibrillation with rapid ventricular response Right bundle branch block Left anterior fascicular block Bifascicular block Moderate voltage criteria for LVH, may be normal variant Abnormal ECG When compared with ECG of 18-JUL-2020 11:15, No significant change was found Confirmed by Anson Hackett ([id number]) on 01/01/2021 5:36:52 AM Referred By: Lewis Villaseñor Confirmed By:Anson Hackett
[2021-01-01] MEDS: LEVOTHYROXINE SODIUM 112 MCG TABLET PO SCH (06:29)
[2021-01-01] MEDS: DOXYCYCLINE HYCLATE 100 MG in DEXTROSE 5% 100 ML IV SCH ×2 (06:44→18:32)
[2021-01-01 07:15] LABS: Basophils # (auto) 0.04 K/uL (0-0.2); Basophils % (auto) 1.2 %; Eosinophils # (auto) 0.13 K/uL (0-0.5); Hematocrit (blood only) 36.9 % (37-47); Hemoglobin 12.2 g/dL (12.0-16.0); Immature Granulocytes # (auto) 0.01 K/uL (0.00-0.02); Immature Granulocytes % (auto) 0.3 %; Lymphocytes # (auto) 0.98 K/uL (1.2-3.4); Lymphocytes % (auto) 30.3 %; Mean Corpuscular Hemoglobin 29.5 pg (25-34); Mean Corpuscular Hgb Conc 33.1 g/dL (32-36); Mean Corpuscular Volume 89.3 fL (80-100); Mean Platelet Volume 10.4 fL (7.4-10.4); Monocytes # (auto) 0.28 K/uL (0.11-0.59); Monocytes % (auto) 8.7 %; Neutrophils # (auto) 1.79 K/uL (1.4-6.5); Neutrophils % (auto) 55.5 %; Platelet Count 120 K/uL (130-400); RDW Coefficient of Variation 14.2 % (11.5-14.5); Red Blood Count 4.13 M/uL (4.2-5.4); White Blood Count 3.23 K/uL (4.8-10.8)
[2021-01-01 07:52] LABS: Estimated Average Glucose 105 mg/dl; Hemoglobin A1C 5.3 % (4.5-5.6)
[2021-01-01 08:09] LABS: Albumin Globulin Ratio 0.8 (0.9-2); Albumin Level 2.7 gm/dl (3.4-5.0); BUN Creatinine Ratio 29.2 (10-20); Bilirubin,Total 0.5 mg/dl (0.2-1); Calcium 8.3 mg/dl (8.5-10.1); Est GFR (African American) 76.6 ml/min; Est GFR (Non-African American) 66.1 ml/min; Globulin 3.3 gm/dl (2.5-4.0); Potassium 4.3 mmol/L (3.5-5.1)
[2021-01-01] MEDS: INSULIN ASPART 100 UNITS/ML 3 ML PEN SC SCH ×4 (08:12→20:40)
[2021-01-01] MEDS: DRONEDARONE HCL 400 MG TAB PO SCH ×2 (08:16→17:22)
[2021-01-01] MEDS: APIXABAN 5 MG TABLET PO SCH ×2 (08:17→20:37)
[2021-01-01] MEDS: ASPIRIN 81 MG ECTAB PO SCH (08:17)
[2021-01-01] MEDS: ATORVASTATIN 40 MG TAB PO SCH (08:18)
[2021-01-01] MEDS: DIGOXIN 0.125 MG TAB PO SCH (08:19)
[2021-01-01] MEDS: cefTRIAXone SODIUM 2,000 MG in DEXTROSE 5% 50 ML IV SCH (09:02)
--- NOTE | 2021-01-01 10:17 | Hospitalist Progress Note ---
Date of Service January 01, 2021 Assessment & Plan (1) Cellulitis: appearance much more of cellulitis today, although odd in two places at the same time. Appears to be improving on current antibiotic regimen therefore no need to start vancomycin. Continue IV ceftriaxone and IV doxycycline - switch to cefdinir and doxycycline on discharge for total 10 day course. (2) Acute Lyme disease: Possible diagnosis. Repeat Lyme in 2 weeks after discharge to see. Follow up anaplasmosis. (3) Atrial fibrillation: Appreciate cardiology management. Seeing if she will spontaneously convert for now. -Digoxin level WNL -Continue Apixaban -Continue Digoxin -Continue Dronedarone (4) Hypotension: Resolved -Gentle IVF, stop benazepril -Continue to monitor (5) CHF (congestive heart failure): Chronic. Well controlled -Continue home medications - avoid overhydration (6) RHODA (obstructive sleep apnea): Chronic -CPAP 6cm H2O qHS (7) Diabetes mellitus, type 2: Well controlled -Hold Metformin -ISS -Goal blood sugar 100 - 140 HbA1C 5.3 (8) Asthma, mild persistent: (9) Hypothyroidism: Chronic. TSH WNL -Continue Synthroid 112mcg daily (10) Anxiety: Chronic. Patient currently feels anxious -Ativan 1mg po QID PRN (11) CAD (coronary artery disease): Chronic. Stable. Patient has had elevated troponin in the past -Repeat troponin -Continue home meds - ASA, Atorvastatin (12) Chronic kidney disease: Near baseline F/E/N - LR at 100mL/hr x 2L, CC diet as tolerated, Continue PO Magnesium Ppx- On Apixaban Code -Full Dispo - Continue observation to medical with telemetry Admission and Anticipated Discharge Date Admission Date: December 30, 2020 Subjective Erythema improving. No fevers or chills. No further chest pain or shortness of breath. Review of Systems Review of Systems: All systems reviewed & are unremarkable except as noted in HPI & below Physical Exam Constitutional: WD/WN, vitals as above Eyes: + anicteric sclerae; normal pupil size Respiratory: normal respiratory effort, lungs clear to auscultation Cardiovascular: Rate/Rhythm: + tachycardic and + irregularly irregular Heart Sounds: no murmur Extremities: normal capillary refill; no calf tenderness and no pedal edema Gastrointestinal (Abdomen): normal bowel sounds, soft, nontender, no hepatosplenomegaly Musculoskeletal: no cyanosis or clubbing, extremities motor strength 5/5 Skin: + erythema (improving from marked area on right chest and right interdigit space) Able to move fingers more today. Neurologic: moves all extremities and awake; not confused Psychiatric: A+Ox3, euthymic affect Results & Data Results & Data ([facility]) Vital Signs (Past 12 Hours) Vital Signs Temp Pulse Pulse Pulse Pulse Resp BP 01/01/21 08:19 78 01/01/21 07:24 36.6 C 78 17 01/01/21 06:50 109 H 01/01/21 04:00 36.5 C 60 18 90/66 L 01/01/21 02:21 97 H 01/01/21 00:00 125 H 12/31/20 23:00 36.4 C L 109 H 18 96/64 L BP Pulse Ox 01/01/21 08:19 01/01/21 07:24 122/85 95 01/01/21 06:50 01/01/21 04:00 97 01/01/21 02:21 01/01/21 00:00 12/31/20 23:00 97 PG Care Time/CCT Total # of Minutes Spent Total Time Spent with Patient: Total time spent is greater than 50% in coordination of care (as documented) at patient's floor/unit and/or counseling patient: Coding Level of Care Code 40640 Subseq Hosp Care Lvl 2 Diagnoses Cellulitis L03.113 Site of cellulitis: extremity Site of cellulitis of extremity: upper extremity Laterality: right Acute Lyme disease A69.20 Atrial fibrillation I48.20 Atrial fibrillation type: unspecified chronic Hypotension I95.89 Hypotension type: other hypotension type CHF (congestive heart failure) I50.9 Heart failure chronicity: unspecified Heart failure type: unspecified RHODA (obstructive sleep apnea) G47.33 Diabetes mellitus, type 2 E11.59 Diabetes mellitus complication detail: with other circulatory complications Diabetes mellitus complication status: with circulatory complication Diabetes mellitus snf insulin use: without rat exterminator use Asthma, mild persistent J45.30 Asthma complication type: uncomplicated Hypothyroidism E03.9 Hypothyroidism type: unspecified Anxiety F41.9 CAD (coronary artery disease) I25.10 Associated angina: without angina Coronary Disease-Associated Artery/Lesion type: [place] artery [place] vs. transplanted heart: [place] heart Chronic kidney disease N18.9 Chronic kidney disease stage: unspecified stage (1) Diabetes mellitus, type 2 Diabetes mellitus complication detail: with other circulatory complications Diabetes mellitus complication status: with circulatory complication Diabetes mellitus rat exterminator insulin use: without snf use Qualified Code(s): E11.59 - Type 2 diabetes mellitus with other circulatory complications (2) CAD (coronary artery disease) Associated angina: without angina Coronary Disease-Associated Artery/Lesion type: [place] artery [place] vs. transplanted heart: [place] heart Qualified Code(s): I25.10 - Atherosclerotic heart disease of [place] coronary artery without angina pectoris (3) CHF (congestive heart failure) Heart failure chronicity: unspecified Heart failure type: unspecified Qualified Code(s): I50.9 - Heart failure, unspecified (4) Atrial fibrillation Atrial fibrillation type: unspecified chronic Qualified Code(s): I48.20 - Chronic atrial fibrillation, unspecified (5) Cellulitis Site of cellulitis: extremity Site of cellulitis of extremity: upper extremity Laterality: right Qualified Code(s): L03.113 - Cellulitis of right upper limb (6) Hypothyroidism Hypothyroidism type: unspecified Qualified Code(s): E03.9 - Hypothyroidism, unspecified (7) Chronic kidney disease Chronic kidney disease stage: unspecified stage Qualified Code(s): N18.9 - Chronic kidney disease, unspecified (8) Asthma, mild persistent Asthma complication type: uncomplicated Qualified Code(s): J45.30 - Mild persistent asthma, uncomplicated (9) Hypotension Hypotension type: other hypotension type Qualified Code(s): I95.89 - Other hypotension
--- NOTE | 2021-01-01 12:57 | Cardiology Progress Note ---
Date of Service January 01, 2021 Assessment & Plan (1) Paroxysmal atrial fibrillation: 2. Febrile illness/rash 3. Hypotension 4 Chronic diastolic heart failure--NYHA class 2 symptoms 5. [place] rheumatic valve aortic/mitral valve disease 6. 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 Remains in atrial fibrillation but patient feeling well today. Heart rate reasonably controlled. No signs of heart failure on exam. Rash improving. Blood pressure stable. No plans for cardioversion today. Hopeful still will convert spontaneously but okay with A. fib at current heart rates Continue current dronedarone, digoxin Continue anticoagulation with Eliquis We will follow Admission and Anticipated Discharge Date Admission Date: December 30, 2020 Subjective Feeling well today. Denies any chest pain, no palpitations. Rash improving on IV antibiotics. Telemetry reviewedremains in atrial fibrillation, heart rates primarily in the 110s and below Review of Systems Review of Systems: All systems reviewed & are unremarkable except as noted in HPI & below Physical Exam Physical Exam: Gen.: No acute distress. Alert and oriented. HEENT: Anicteric sclera. Neck: No JVD. Cardiac: Irregularly irregular.. Normal S1-S2. 2/6 systolic ejection murmur. No rubs or gallops. Pulmonary: Clear to auscultation bilaterally without wheezes, rales, or rhonchi. Abdomen: Soft, nontender, nondistended, with normoactive bowel sounds. No bruits noted. Extremities: 2+ radial pulses bilaterally. 2+ posterior tibialis pulses bilaterally. Trace bilateral pedal edema. No cyanosis. Psychiatric: Affect appears appropriate. Skin: Right hand is erythematous and swollen in appearance. Right chest erythematous area. Small erythematous area on the right backRedness improved from prior pen markings. Results & Data ([facility]) Vital Signs (Past 12 Hours) Vital Signs Temp Pulse Pulse Pulse Pulse Resp BP 01/01/21 11:39 97.7 F 70 18 01/01/21 08:19 78 01/01/21 07:24 97.9 F 78 17 01/01/21 06:50 109 H 01/01/21 04:00 97.7 F 60 18 90/66 L 01/01/21 02:21 97 H BP Pulse Ox 01/01/21 11:39 108/72 98 01/01/21 08:19 01/01/21 07:24 122/85 95 01/01/21 06:50 01/01/21 04:00 97 01/01/21 02:21 PG Care Time/CCT Total # of Minutes Spent Total Time Spent with Patient: Total time spent is greater than 50% in coord ination of care (as documented) at patient's floor/unit and/or counseling patient: Coding Level of Care Code 34043 Subseq Hosp Care Lvl 3 Diagnoses Paroxysmal atrial fibrillation I48.0
[2021-01-01] MEDS: MAGNESIUM OXIDE 400 MG TAB PO SCH (20:37)
[2021-01-01] MEDS: MELATONIN 3 MG TAB PO SCH (20:38)
[2021-01-02] MEDS: LEVOTHYROXINE SODIUM 112 MCG TABLET PO SCH (06:16)
[2021-01-02] MEDS: DOXYCYCLINE HYCLATE 100 MG in DEXTROSE 5% 100 ML IV SCH (07:07)
[2021-01-02] MEDS: ASPIRIN 81 MG ECTAB PO SCH (07:11)
[2021-01-02] MEDS: DRONEDARONE HCL 400 MG TAB PO SCH ×2 (07:11→17:28)
[2021-01-02] MEDS: APIXABAN 5 MG TABLET PO SCH (07:11)
[2021-01-02] MEDS: ATORVASTATIN 40 MG TAB PO SCH (07:11)
[2021-01-02] MEDS: DIGOXIN 0.125 MG TAB PO SCH (07:12)
[2021-01-02] MEDS: INSULIN ASPART 100 UNITS/ML 3 ML PEN SC SCH ×3 (08:59→17:30)
[2021-01-02] MEDS: cefTRIAXone SODIUM 2,000 MG in DEXTROSE 5% 50 ML IV SCH (09:42)
--- NOTE | 2021-01-02 11:43 | Hospitalist Progress Note ---
Date of Service January 02, 2021 Assessment & Plan (1) Cellulitis: appearance much more of cellulitis today, although odd in two places at the same time. Appears to be improving on current antibiotic regimen therefore no need to start vancomycin. Continue IV ceftriaxone and IV doxycycline - switch to cefdinir and doxycycline on discharge for total 10 day course. (2) Acute Lyme disease: Possible diagnosis. Repeat Lyme in 2 weeks after discharge to see. Follow up anaplasmosis. (3) Atrial fibrillation: Appreciate cardiology management. Seeing if she will spontaneously convert for now. -Digoxin level WNL -Continue Apixaban -Continue Digoxin -Continue Dronedarone (4) Hypotension: Resolved -Gentle IVF, stop benazepril -Continue to monitor (5) CHF (congestive heart failure): Chronic. Well controlled -Continue home medications - avoid overhydration (6) RHODA (obstructive sleep apnea): Chronic -CPAP 6cm H2O qHS (7) Diabetes mellitus, type 2: Well controlled -Hold Metformin -ISS -Goal blood sugar 100 - 140 HbA1C 5.3 (8) Asthma, mild persistent: (9) Hypothyroidism: Chronic. TSH WNL -Continue Synthroid 112mcg daily (10) Anxiety: Chronic. Patient currently feels anxious -Ativan 1mg po QID PRN (11) CAD (coronary artery disease): Chronic. Stable. Patient has had elevated troponin in the past -Repeat troponin -Continue home meds - ASA, Atorvastatin (12) Chronic kidney disease: Near baseline F/E/N - LR at 100mL/hr x 2L, CC diet as tolerated, Continue PO Magnesium Ppx- On Apixaban Code -Full Dispo - Continue observation to medical with telemetry Admission and Anticipated Discharge Date Admission Date: January 01, 2021 Results & Data Results & Data ([facility]) Vital Signs (Past 12 Hours) Vital Signs Temp Pulse Pulse Pulse Resp BP Pulse Ox 01/02/21 11:13 36.4 C L 69 18 102/61 96 01/02/21 07:53 36.4 C L 112 H 113 H 16 139/80 96 01/02/21 07:12 114 H 01/02/21 06:23 93 H 01/02/21 03:00 36.4 C L 102 H 18 112/73 96 01/02/21 02:18 99 H PG Care Time/CCT Total # of Minutes Spent Total Time Spent with Patient: Total time spent is greater than 50% in coordination of care (as documented) at patient's floor/unit and/or counseling patient: Coding Diagnoses Cellulitis L03.113 Site of cellulitis: extremity Site of cellulitis of extremity: upper extremity Laterality: right Acute Lyme disease A69.20 Atrial fibrillation I48.20 Atrial fibrillation type: unspecified chronic Hypotension I95.89 Hypotension type: other hypotension type CHF (congestive heart failure) I50.9 Heart failure type: unspecified Heart failure chronicity: unspecified RHODA (obstructive sleep apnea) G47.33 Diabetes mellitus, type 2 E11.59 Diabetes mellitus residential insulin use: without residential use Diabetes mellitus complication status: with circulatory complication Diabetes mellitus complication detail: with other circulatory complications Asthma, mild persistent J45.30 Asthma complication type: uncomplicated Hypothyroidism E03.9 Hypothyroidism type: unspecified Anxiety F41.9 CAD (coronary artery disease) I25.10 Coronary Disease-Associated Artery/Lesion type: [place] artery [place] vs. transplanted heart: [place] heart Associated angina: without angina Chronic kidney disease N18.9 Chronic kidney disease stage: unspecified stage (1) Cellulitis Site of cellulitis: extremity Site of cellulitis of extremity: upper extremity Laterality: right Qualified Code(s): L03.113 - Cellulitis of right upper limb (2) Atrial fibrillation Atrial fibrillation type: unspecified chronic Qualified Code(s): I48.20 - Chronic atrial fibrillation, unspecified (3) Hypotension Hypotension type: other hypotension type Qualified Code(s): I95.89 - Other hypotension (4) CHF (congestive heart failure) Heart failure type: unspecified Heart failure chronicity: unspecified Qualified Code(s): I50.9 - Heart failure, unspecified (5) Diabetes mellitus, type 2 Diabetes mellitus keno terminal operator insulin use: without keno terminal operator use Diabetes mellitus complication status: with circulatory complication Diabetes mellitus complication detail: with other circulatory complications Qualified Code(s): E11.59 - Type 2 diabetes mellitus with other circulatory complications (6) Asthma, mild persistent Asthma complication type: uncomplicated Qualified Code(s): J45.30 - Mild persistent asthma, uncomplicated (7) Hypothyroidism Hypothyroidism type: unspecified Qualified Code(s): E03.9 - Hypothyroidism, unspecified (8) CAD (coronary artery disease) Coronary Disease-Associated Artery/Lesion type: [place] artery [place] vs. transplanted heart: [place] heart Associated angina: without angina Qualified Code(s): I25.10 - Atherosclerotic heart disease of [place] coronary artery without angina pectoris (9) Chronic kidney disease Chronic kidney disease stage: unspecified stage Qualified Code(s): N18.9 - Chronic kidney disease, unspecified
[2021-01-02] MEDS ORDERED: dilTIAZem ER 120 MG CAPCR PO SCH (13:45)
[2021-01-02] MEDS ORDERED: dilTIAZem HCL 120 MG CAPCR PO SCH (13:45)
--- NOTE | 2021-01-02 16:21 | Discharge Summary ---
Date of Service January 02, 2021 Admission HPI Per Admitting Provider Cathy Farley is a pleasant 70yo C female with multiple medical comorbidities presenting with two weeks of progressive/persistent fatigue. Patient monitors her blood pressure frequently at home using automated wrist cuffs - has been getting low readings lately. She brought the cuffs with her today and I reviewed them - she had several readings of 80's/40's, HR to 140. Patient follows with Cardiology - last saw Dr. De Souza on 11/21/20. She has history of PAF s/p ablation with subsequent recurrence. 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 She is currently on Dronedarone (unable to tolerate Amiodarone). Also with moderate to severe with moderate AI. Moderate MS with moderate MR. She denies chest pain, palpitations, dizziness, syncope. Denies abdominal pain, nausea, vomiting, diarrhea. States she is eating well at home. Normal urination and BMs. She did have an isolated fever on Wednesday to 102 which resolved with Tylenol and has not reoccurred. Rash/redness on right breast surrounding what appears to be a bite. Patient does not recall having a tick on her or getting bitten by anything. ER Course: Ceftriaxone Admission Exam Per Admitting Provider General: patient resting comfortably, NAD, non-toxic in appearance, AA&O x 4 Skin: warm, dry, intact, well circumscribed circular area of redness on right chest wall/axillary fold surrounding what appears to be an insect bite, no crepitus/bullae HEENT: NC/AT, PERRL, EOMI, anicteric sclera, conjunctiva without injection, external ear normal to inspection and nontender, nares patent, moist mucus membranes, dentition intact, no oropharyngeal lesions, neck supple, trachea midline, no LAD, no thyromegaly, no JVD Heart: +S1/S2, regular, 4/6 DEIRDRE across precordium to carotids Lungs: equal air entry bilaterally, no rales/rhonchi/wheezes Abd: +BS, soft, NT/ND, no masses/organomegaly/ascites Ext: warm, 2+ pulses in UE/LE bilaterally, no clubbing/cyanosis or edema Neuro: nonfocal, patient AA&O x 4, speech intact, no facial droop, moving all extremities on command with equal strength 5/5 Principal Diagnosis Cellulitis Atrial fibrillation with RVR Discharge Exam Constitutional WD/WN, vitals as above Eyes + anicteric sclerae; normal pupil size Respiratory normal respiratory effort, lungs clear to auscultation Cardiovascular Rate/Rhythm: + tachycardic and + irregularly irregular Heart Sounds: no murmur Extremities: normal capillary refill; no calf tenderness and no pedal edema Gastrointestinal (Abdomen) normal bowel sounds, soft, nontender, no hepatosplenomegaly Musculoskeletal no cyanosis or clubbing, extremities motor strength 5/5 Skin + erythema (improving from marked area on right chest and right interdigit space) Neurologic moves all extremities and awake; not confused Psychiatric A+Ox3, euthymic affect Discharge Data Allergies Allergy/AdvReac Type Severity Reaction Status Date / Time azithromycin [From Zithromax] Allergy Severe LEUKOCYTOPLASTIC Verified 01/13/21 10:06 VASCULITIS amiodarone Allergy Intermediate TREMORS, Verified 01/13/21 10:06 UNSTEADY GAIT, PHOTOSENSITIVITY, AGITATED NSAIDS (Non-Steroidal Allergy Intermediate HIGH BP - Verified 01/13/21 10:06 Anti-Inflamma AVOID, GASTRIC UPSET/GI BLEEDING povidone Allergy Mild RASH Verified 01/13/21 10:06 adhesive AdvReac Mild RASH Verified 01/13/21 10:06 Consultations 12/30/20 21:56 ED Decision to Admit Stat 12/31/20 10:55 Consult Cardiology Routine Hospital Course (1) Cellulitis: Cathy Farley is a 70 year old female admitted to [facility] from December 30-2020 due to chest and hand redness and swelling. She was diagnosed with cellulitis and acute kidney injury treated with intravenous ceftriaxone and doxycycline during admission which will be switched to cefdinir and oral doxycycline on discharge for a total 7 day course. Due to possibility of lyme disease as unusual to get cellulitis in two separate places at the same time recommend following up with her primary care physician in approximately 2 weeks with repeat lyme test as ordered. She has known paroxysmal atrial fibrillation and went back into this rhythm likely secondary to acute infection as above. She was reviewed by her mild disabilities teacher and recommend starting on diltiazem CD as prescribed below and following up with as an outpatient next week for cardioversion if she does not spontaneously convert. Due to hypotension during admission benazepril has been discontinued pending follow up with her primary care provider. (2) Acute Lyme disease: (3) Atrial fibrillation: (4) Hypotension: (5) CHF (congestive heart failure): (6) RHODA (obstructive sleep apnea): (7) Diabetes mellitus, type 2: (8) Asthma, mild persistent: (9) Hypothyroidism: (10) Anxiety: (11) CAD (coronary artery disease): (12) Chronic kidney disease: Total Time Total Time Spent Total Time Spent (In Minutes): 35 Total Time Includes: Examination of the Patient, Discharge Planning and Medicat ion Reconciliation Discharge Plan Discharge Items Patient Disposition: Home - Self-Care Reason For Visit: WEAKNESS, FATIGUE, LOW BLOOD PRESSURE Discharge Diagnosis: Cellulitis Atrial fibrillation with RVR Activity: Resume your previous activity Non-emergency contact: Primary Care Provider Call non-emergency contact if: you have any medication questions and your symptoms worsen Follow-up/Referrals: Noam De Souza MD [Physician] - (1 week) Lewis Villaseñor MD [Primary Care Provider] - 01/08/21 10:30 am (If you have any questions or need to change this appointment, please call [phone].) Diet: Carb Consistent or DM2 Addtl Attending Provider Instructions: You were admitted to [facility] from December 30-2020 due to chest and hand redness and swelling. You were diagnosed with cellulitis and acute kidney injury treated with intravenous ceftriaxone and doxycycline during admission which will be switched to cefdinir and oral doxycycline on discharge for a total 7 day course. Due to possibility of lyme disease recommend following up with your primary care physician in approximately 2 weeks with repeat lyme test as ordered. Due to atrial fibrillation with rapid ventricular rate you were reviewed by your mild disabilities teacher. Recommend starting on diltiazem CD at this time s prescribed below and following up with your mild disabilities teacher next week for cardioversion if you do not spontaneously convert. If you feel dizzy or lightheaded on this medication please call your mild disabilities teacher office for ongoing advice. Due to low blood pressures during your admission recommend discontinuing your benazepril pending follow up with your primary care physician. Pending Studies at Discharge: Yes Stand-Alone Forms: [facility], Smoking Cessation Medications and DC Order Prescriptions: New diltiazem HCl 120 mg capsule,extended release 24hr 120 mg PO QAM Qty: 30 RF: 0 Continued dronedarone 400 mg tablet 400 mg PO BIDM Qty: 180 RF: 3 cetirizine 10 mg tablet 10 mg PO DAILY PRN (Reason: Allergy Symptoms) RF: 0 cholecalciferol (vitamin D3) 1,000 unit (25 mcg) tablet 5,000 units PO PM RF: 0 cyanocobalamin (vitamin B-12) 1,000 mcg tablet 1,000 mcg PO PM RF: 0 magnesium oxide 400 mg (241.3 mg magnesium) tablet 400 mg PO PM RF: 0 melatonin 10 mg capsule 10 mg PO HS RF: 0 pyridoxine (vitamin B6) 100 mg tablet 50 mg PO PM RF: 0 vitamin E succinate 400 unit tablet 400 units PO QAM RF: 0 albuterol sulfate [Ventolin HFA] 90 mcg/actuation HFA aerosol inhaler 2 puffs INH Q4H PRN (Reason: shortness of breath or wheezing) Qty: 18 RF: 5 atorvastatin 40 mg tablet 40 mg PO QAM RF: 0 metformin 500 mg Tablet 500 mg PO BIDM RF: 0 ascorbic acid (vitamin C) [Vitamin C] 1,000 mg Tablet 1,000 mg PO QAM RF: 0 lysine 500 mg Tablet 500 mg PO QAM RF: 0 fluticasone propionate 50 mcg/actuation spray,suspension 2 sprays INTNAS DAILY PRN (Reason: Congestion) RF: 0 Align 4 mg Capsule 4 mg PO PM RF: 0 levothyroxine 112 mcg Tablet 112 mcg PO QAM RF: 0 aspirin 81 mg Tablet,Delayed Release (Dr/Ec) 81 mg PO QAM RF: 0 Discontinued benazepril 10 mg tablet 10 mg PO QAM RF: 0 lorazepam 1 mg tablet 1 mg PO QID PRN (Reason: Anxiety) RF: 0 No Action digoxin 125 mcg (0.125 mg) tablet 125 mcg PO QAM RF: 0 clopidogrel 75 mg tablet 75 mg PO DAILY Qty: 30 RF: 6 Eliquis 5 mg tablet 5 mg PO BID 28 Days Qty: 0 RF: 0 Discharge Orders: Discharge Order (Routine); Ordered 01/02/21 Ordered By: Joshua Jensen Admission Data Admit Date/Time: 01/01/21 13:20 Attending Provider: Joshua Jensen Admit Provider: Ginny Strickland Primary Care Provider: Lewis Villaseñor Other Providers: Ginny Strickland ; Anson Hackett ; Noam De Souza Other Interventions: Discharge Summary Assessment (RN) Last Done: 01/02/21 16:41 Coding Level of Care Code D/C Day Management >30 mins Diagnoses Cellulitis L03.113 Laterality: right Site of cellulitis: extremity Site of cellulitis of extremity: upper extremity Acute Lyme disease A69.20 Atrial fibrillation I48.20 Atrial fibrillation type: unspecified chronic Hypotension I95.89 Hypotension type: other hypotension type CHF (congestive heart failure) I50.9 Heart failure chronicity: unspecified Heart failure type: unspecified RHODA (obstructive sleep apnea) G47.33 Diabetes mellitus, type 2 E11.59 Diabetes mellitus complication detail: with other circulatory complications Diabetes mellitus complication status: with circulatory complication Diabetes mellitus fpc insulin use: without emt intermediate use Asthma, mild persistent J45.30 Asthma complication type: uncomplicated Hypothyroidism E03.9 Hypothyroidism type: unspecified Anxiety F41.9 CAD (coronary artery disease) I25.10 Associated angina: without angina Coronary Disease-Associated Artery/Lesion type: [place] artery [place] vs. transplanted heart: [place] heart Chronic kidney disease N18.9 Chronic kidney disease stage: unspecified stage
--- NOTE | 2021-01-02 17:26 | Cardiology Progress Note ---
Date of Service January 02, 2021 Assessment & Plan (1) Paroxysmal atrial fibrillation: 2. Febrile illness/rash 3. Hypotension 4 Chronic diastolic heart failure--NYHA class 2 symptoms 5. Nonsevere rheumatic valve aortic/mitral valve disease 6. 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 Remains in atrial fibrillation but patient feeling well today. No signs of heart failure on exam. Rash improving. Blood pressure stable. Plan to add diltiazem to current regimen of dronedarone, digoxin. Continue anticoagulation with Eliquis. Still hopeful will convert spontaneously. Follow-up with patient next Wednesday. If remains in atrial fibrillation we will schedule cardioversion. Admission and Anticipated Discharge Date Admission Date: January 01, 2021 Subjective Denies palpitations, chest pain, shortness of breath. Rash improving. Telemetry reviewedremains in atrial fibrillation heart rates in 110s 120s. Brief episodes up in the 140s 50s Review of Systems Review of Systems: All systems reviewed & are unremarkable except as noted in HPI & below Physical Exam Physical Exam: Gen.: No acute distress. Alert and oriented. HEENT: Anicteric sclera. Neck: No JVD. Cardiac: Irregularly irregular.. Normal S1-S2. 2/6 systolic ejection murmur. No rubs or gallops. Pulmonary: Clear to auscultation bilaterally without wheezes, rales, or rhonchi. Abdomen: Soft, nontender, nondistended, with normoactive bowel sounds. No bruits noted. Extremities: 2+ radial pulses bilaterally. 2+ posterior tibialis pulses bilaterally. Trace bilateral pedal edema. No cyanosis. Psychiatric: Affect appears appropriate. Skin: Right hand is erythematous and swollen in appearance. Right chest erythematous area. Small erythematous area on the right backRedness improved from prior pen markings. Results & Data ([facility]) Vital Signs (Past 12 Hours) Vital Signs Temp Pulse Pulse Pulse Resp BP BP 01/02/21 17:04 121 H 141/107 H 153/96 H 01/02/21 16:41 97.5 F L 118 H 113 H 19 122/67 01/02/21 15:13 97.5 F L 118 H 19 122/67 01/02/21 11:13 97.5 F L 69 18 102/61 01/02/21 07:53 97.5 F L 112 H 113 H 16 139/80 01/02/21 07:12 114 H 01/02/21 06:23 93 H Pulse Ox 01/02/21 17:04 01/02/21 16:41 98 01/02/21 15:13 98 01/02/21 11:13 96 01/02/21 07:53 96 01/02/21 07:12 01/02/21 06:23 PG Care Time/CCT Total # of Minutes Spent Total Time Spent with Patient: Total time spent is greater than 50% in coordination of care (as documented) at patient's floor/unit and/or counseling patient: Coding Level of Care Code 09426 Subseq Hosp Care Lvl 3 Diagnoses Paroxysmal atrial fibrillation I48.0
== END 2021-01-02 18:22 | disposition home or self-care (01) | DRG 603 ==
LOC: 3W 17:41 → ED 17:41 → SUATTDRO 23:17 → 3W 23:50 → 2N 12-31 09:50
DX: Z79.82 Long term (current) use of aspirin; J45.30 Mild persistent asthma, uncomplicated; Z91.048 Other nonmedicinal substance allergy status; Z79.890 Hormone replacement therapy; Z86.79 Personal history of other diseases of the circulatory system; E03.9 Hypothyroidism, unspecified; I95.9 Hypotension, unspecified; Z95.818 Presence of other cardiac implants and grafts; G47.33 Obstructive sleep apnea (adult) (pediatric); I48.0 Paroxysmal atrial fibrillation; E86.0 Dehydration; Z88.1 Allergy status to other antibiotic agents; I08.0 Rheumatic disorders of both mitral and aortic valves; I25.10 Atherosclerotic heart disease of native coronary artery without angina pectoris; I24.8 Other forms of acute ischemic heart disease; L03.313 Cellulitis of chest wall; Z79.899 Other long term (current) drug therapy; Z88.8 Allergy status to other drugs, medicaments and biological substances; N18.30 Chronic kidney disease, stage 3 unspecified; Z79.01 Long term (current) use of anticoagulants; Z98.890 Other specified postprocedural states; F41.9 Anxiety disorder, unspecified; Z88.6 Allergy status to analgesic agent; A69.20 Lyme disease, unspecified; I50.32 Chronic diastolic (congestive) heart failure; Z79.84 Long term (current) use of oral hypoglycemic drugs; E11.22 Type 2 diabetes mellitus with diabetic chronic kidney disease

== ENCOUNTER 2022-07-13 11:37 | Observation (INO) ==
[~2022-07-13 11:37] MED LIST changes: -ASCO1CAP3 PO; -ASPI-232 PO; -ATV/1 PO; -BENA1TAB53 PO; -BIOTCAP2 PO; +BUPIVACAINE 0.25% 30 ML VIAL ONE; -CHOL1CAP57 PO; -CLR10 PO; -CMD5 PO; -CRD200 PO; -CYAN100020 PO; -DOCU-94 PO; -GLC500 PO; -INOS500T PO; -ISOS30TA3 PO; -LCTX PO; -LEVO112T2 PO; +LIDOCAINE 1% LOCAL 20 ML VIAL ONE; -LPT40 PO; -LSX20 PO; -LVNIS120 SQ; -MAGN400T6 PO; -MELATAB2 PO; -METHPOW7 PO; -MISCCAP80 PO; -MULT-513 PO; -PYRI100T4 PO; -SYMIN160 PO; -TRAM-10 PO; +VANCOMYCIN HCL 1000MG/20ML VIAL ONE; -VITACAP37 PO; +WATER, STERILE FOR INJ 10 ML VIAL ONE
--- NOTE | 2022-07-13 12:21 | Pre Anesthesia Assessment ---
Date of Service July 13, 2022 Pre Sedation Assessment Vital Signs Temp Pulse Resp BP Pulse Ox O2 Del Method 07/13/22 11:49 36.6 C 132 H 17 142/99 H 98 Room Air Cardiovascular + tachycardic and + irregularly irregular Respiratory + respiratory effort normal Pre-Sedation Airway Assessment Smoking Status: Never smoker Hx Sleep Apnea: Yes Hx Difficult Intubation: No Short, Thick Neck: No Thyromental Distance: > or= 3.5 Finger Breadths Oral Cavity: + WNL Mallampati Class: III ASA: ASA3 NPO Status Date of Last Intake of Fluids: 07/12/22 Date of Last Intake of Solid Food: 07/12/22 Procedure Planning Contraindications for Sedation: none Current Medications Reviewed: Yes Notes The planned sedation has been discussed with the patient. Informed Consent was obtained. I have identified the patient, determined the appropriateness of sedation and have assessed the patient immediately prior to the procedure. All medicine(s) and interventions are by my order.
--- NOTE | 2022-07-13 12:21 | History & Physical Bridge Note ---
Date of Service July 13, 2022 History & Physical Bridge Note I have examined the patient, reviewed the History & Physical and in the interval since the performance of the History & Physical I have noted the following changes of clinical significance: no changes noted. in AF
[2022-07-13] MEDS ORDERED: MIDAZOLAM HCL 5 MG/ML 1 ML VIAL ONE ×2 (12:48→13:29)
[2022-07-13] MEDS ORDERED: ceFAZolin 330 MG/ML 1 GM VIAL ONE (12:48)
[2022-07-13] MEDS ORDERED: fentaNYL citrate 100 MCG/2 ML VIAL ONE ×3 (12:48→14:14)
[2022-07-13] MEDS ORDERED: HEPARIN (PORCINE) 1000 UNIT/ML 10 ML (CATH LAB USE ONLY) ONE (14:08)
[2022-07-13] MEDS ORDERED: ISOPROTERENOL HCL 0.2 MG/ML 5 ML AMP IV ONE (14:53)
[2022-07-13] MEDS ORDERED: ACETAMINOPHEN 325 MG TAB PO PRN (15:31)
--- NOTE | 2022-07-13 15:31 | Post Anesthesia Assessment ---
Date of Service July 13, 2022 Post Sedation Assessment Vital Signs Temp Pulse Resp BP Pulse Ox O2 Del Method 07/13/22 11:49 36.6 C 132 H 17 142/99 H 98 Room Air Recovery Score Activity: Moves 4 extremities Respiration: Deep Breath/Cough Circulation: +/-20% PreAnes Value Consciousness: Fully Awake Oxygen Saturation: > 92% On Room Air Discharge Sedation Level of Care: Fast Track Phase II Post Sedation Plan On clinical assessment, the patient appears to have tolerated the sedation without complications. Patient is recovering as anticipated. Patient will continue to be monitored by nursing and may be discharged when sedation discharge criteria are met per below protocol. Upon Completions of procedure up to 15 minutes continue every 5 minute vital signs and the P.A.R. score; then discharge to a Phase I or Fast Track to Phase II per the following guidelines: * Discharge Patient to appropriate Phase II area if PAR is 8 or greater or return to pre- procedure baseline. The post - procedure orders will be as directed. * If PAR score is less than 8 or not return to pre-procedure baseline then patient will follow Phase I monitoring till PAR is reached for Phase II. The Phase I may be done in procedure room or may call to secure a Phase I area. * If naloxone or flumazenil are used for reversal, hold in Phase I for continued monitoring from when last reversal dose was given for a minimum of 60 minutes or longer pending the nurse and/or physician discretion of patient condition before discharge to Phase II. Please call the Sedation Physician to re-evaluate and complete post-note for discharge to Phase II area. Do NOT discharge from procedure sedation or Phase 1 until post- sedation evaluation note is complete by procedure /sedation MD Sedation Discharge Instructions to be given to the patient at discharge to home.
--- NOTE | 2022-07-13 15:31 | Electrophysiology Report ---
Date of Service July 13, 2022 Electrophysiology Procedure Electrophysiology Procedure Report Procedure performed: Ablation of AV node staff clinic mgr Satish Arriola MD indication: Rapid atrial fibrillation procedure detail the patient was informed the risks benefits and alternatives to the intended procedure. She understood which proceed. She was taken to the electrophysiology suite in a fasting state. Conscious sedation was administered per protocol the patient was monitored electrocardiographically throughout today's procedure. Immediately preceding this procedure patient had undergone implantation of dual-chamber permanent pacemaker. The right femoral area was prepped and draped in usual sterile fashion. This area was anesthetized using subcutaneous menstruation of lidocaine solution. The right femoral vein was subsequently accessed using modified Seldinger technique and sheath was placed over guidewire at this site. The sheath was used facilitate passage of an ablation catheter for mapping of the intra-atrial septum. Radiofrequency ablation was then performed until AV shashi conduction was blocked. The catheter and sheath were subsequently removed. Hemostasis was achieved at the access site using manual pressure. The patient tolerated procedure well. There were no immediate complications. Ablation: Ablation was performed using an 8 Arabic 3.5 mm irrigated radiofrequency ablation catheter. Ablation was carried out any power limited mode. Multiple lesions were placed in the interatrial septum until conduction ceased between the atrium and the ventricle. My substernal effusion was also employed in order to test AV shashi conduction. Impression: Successful ablation of AV node [facility] Electrophysiology codes EP Procedure 1: Electrophysiology: 66867 Ablation AV Node w/wo pace PG Moderate Sedation Codes Moderate Sedation Codes Procedure 1: Sedation/Anesthesia: 37420 Mod Sedation by the same physician;Init15 Min Child Age 5 & Up Procedure 2: Sedation/Anesthesia: 93713 Mod Sedation by the same physician; Ea [id number] Minutes
[2022-07-13] MEDS ORDERED: FLUTICASONE PROPIONATE NA SPR 16 GM BTL PRN (15:39)
[2022-07-13] MEDS ORDERED: ALBUTEROL HFA 8 GM INHALER INH PRN (15:39)
--- NOTE | 2022-07-13 16:18 | Electrophysiology Report ---
Date of Service July 13, 2022 Electrophysiology Procedure Electrophysiology Procedure Report Procedure performed: Implantation of dual-chamber permanent pacemaker with left bundle pacing lead Staff engineering geologist: Satish Arriola MD Indication: patient is a 71-year-old woman with a history of permanent and poorly controlled atrial fibrillation. She is scheduled for an AV node ablation and will require rate support with a permanent pacemaker. Indication is symptomatic non reversible AV node dysfunction. Dual-chamber device was selected as the patient is occasionally in sinus rhythm and wished to employed atrial therapies and maintain AV synchrony in that circumstance. Procedure in detail: The patient was informed of the risks benefits and alternatives to the intended procedure and she wished to proceed. She was taken to the electrophysiology suite in a fasting state. A preoperative antibiotic had been administered. The patient was monitored electrocardiographically throughout today's procedure and conscious sedation was administered per protocol. The left upper pectoral area is prepped and draped in usual sterile fashion. This area was anesthetized using subcutaneous administration of a xylocaine solution. An incision was made at this site and carried down to the prepectoralis fascia using sharp dissection. Electrocautery was also employed for dissection as well as for hemostasis. A device pocket was fashioned tissues above the pectoralis muscle. Subsequent to this maneuver the left axillary vein was accessed using modified Seldinger technique. Sheath was placed over guidewire at this site used facilitate passage of a guiding catheter for mapping of the interventricular septum. Once a suitable location was identified the right ventricular lead was advanced into the interatrial septum into the appropriate waveform and parameters were obtained. The guiding catheter was subsequently removed in the proximal portion of lead was then sutured the prepectoralis fascia using nonabsorbable suture. A sheath was placed over the remaining guidewire and used facilitate passage of a pacing lead to the right atrium under fluoroscopic guidance. Adequate sensing threshold parameters were obtained prior to active fixation of the lead to the endocardial surface. Proximal portion lead was then sutured the prepectoralis fascia using nonabsorbable suture. The device pocket was irrigated with antibiotic solution. The leads were then attached to the device. The device and leads were then placed in the pocket and pocket was closed in 3 layers of absorbable suture. Steri-Strips and sterile dressing were applied. The device was tested noninvasively prior to conclusion the procedure. The patient tolerated procedure well there no immediate complications. Equipment used: New pulse generator: Furniture [employer]icer [employer]. Model number: [id number] Serial number [id number] Right atrial lead: Furniture Servicer [employer]. Model number: 5076 serial number [id number] Right ventricular lead: Furniture [employer]icer [employer]. Model number: 3830 serial number [id number] Measured data: Right atrial lead: patient was in atrial fibrillation. Sensing 1.9 mV. No pacing was performed at the pacing impedance was 399 Ohms Right ventricular lead: R-waves measured 7.4 mV. Pacing threshold was 0.75 volts at 0.4 milliseconds with a pacing impedance of 684 Ohms Impression: Successful implantation of dual-chamber permanent pacemaker with left bundle pacing lead [facility] Electrophysiology codes Pacing Procedure 1: Pacin Insert/Replace Pacer A & V PG Moderate Sedation Codes Moderate Sedation Codes Procedure 1: Sedation/Anesthesia: 33661 Mod Sedation by the same physician;Init15 Min Child Age 5 & Up Procedure 2: Sedation/Anesthesia: 82534 Mod Sedation by the same physician; Ea [id number] Minutes
[2022-07-13] MEDS: oxyCODONE HCL IR 5 MG TAB (IMMEDIATE RELEASE) PO PRN (19:28)
[2022-07-13] MEDS: metFORMIN HCL 500 MG TAB PO SCH (20:50)
[2022-07-13] MEDS ORDERED: ADVANCED PROBIOTIC 1250 MG CAPSULE PO SCH (21:00)
[2022-07-13] MEDS ORDERED: NON-FORMULARY MEDICATION (Bifidobacterium Infantis [Align] 4 mg Capsule) PO SCH (21:00)
[2022-07-13] MEDS ORDERED: NON-FORMULARY MEDICATION (Vit C,E-Zn-Coppr-Lutein-Zeaxan [Preservision Areds-2] 250-90-40- PO SCH (21:00)
[2022-07-13] MEDS ORDERED: MAGNESIUM OXIDE 400 MG TAB PO SCH (21:00)
[2022-07-13] MEDS ORDERED: ceFAZolin 1000MG 1,000 MG/7.5 ML SYR IV ONE (21:00)
[2022-07-13] MEDS ORDERED: MELATONIN 3 MG TAB PO SCH (21:00)
[2022-07-14] MEDS: oxyCODONE HCL IR 5 MG TAB (IMMEDIATE RELEASE) PO PRN (05:07)
[2022-07-14] MEDS ORDERED: LEVOTHYROXINE SODIUM 112 MCG TABLET PO SCH (06:30)
[2022-07-14] MEDS: metFORMIN HCL 500 MG TAB PO SCH (08:16)
[2022-07-14] MEDS ORDERED: ASCORBIC ACID 500 MG TAB PO SCH (09:00)
[2022-07-14] MEDS ORDERED: NON-FORMULARY MEDICATION (Lysine 500 mg Tablet) PO SCH (09:00)
[2022-07-14] MEDS ORDERED: ATORVASTATIN 40 MG TAB PO SCH (09:00)
[2022-07-14] MEDS ORDERED: MULTIVITAMIN TAB PO SCH (09:00)
[2022-07-14] MEDS ORDERED: EMPAGLIFLOZIN 10 MG TAB PO SCH (09:00)
[2022-07-14] MEDS ORDERED: ASPIRIN 81 MG ECTAB PO SCH (09:00)
--- NOTE | 2022-07-14 09:35 | Discharge Summary ---
Date of Service July 14, 2022 Principal Diagnosis atrial fibrillation with rapid ventricular response Discharge Exam a day discharge the patient was comfortable and oriented. Device implant site in left upper pectoral area revealed some mild ecchymosis b ut no significant hematoma or drainage. Right femoral area revealed the absence of a hematoma. No significant bruising. Discharge Data Allergies Allergy/AdvReac Type Severity Reaction Status Date / Time azithromycin [From Zithromax] Allergy Severe LEUKOCYTOPLASTIC Verified 07/13/22 11:57 VASCULITIS amiodarone Allergy Intermediate TREMORS, Verified 07/13/22 11:57 UNSTEADY GAIT, PHOTOSENSITIVITY, AGITATED NSAIDS (Non-Steroidal Allergy Intermediate HIGH BP - Verified 07/13/22 11:57 Anti-Inflamma AVOID, GASTRIC UPSET/GI BLEEDING povidone Allergy Mild RASH Verified 07/13/22 11:57 adhesive AdvReac Mild RASH Verified 07/13/22 11:57 Procedures Performed Operation Date: 07/13/22 13:00 Actual Procedures p Pacer with A/V Leads (Dual) - Satish Arriola MD s AV Node Ablation - Satish Arriola MD s Interrogation of Pacer - Satish Arriola MD Ordered Studies 07/13/22 07:15 EP Lab Images for PACS ONCE Hospital Course (1) Atrial fibrillation with RVR: Plan 1. Atrial fibrillation: On the day of admission the patient underwent implantation of a dual-chamber [employer] pacemaker with left bundle pacing lead. Subsequently she underwent ablation of the AV node via a right femoral vein approach. There were no immediate complications from the procedures. The following morning device interrogation revealed field good function on both leads. Chest x-ray did not demonstrate any evidence of pneumothorax and lead position was stable. The patient was sent home on her usual medications with some narcotic analgesics. She was instructed to refrain from lifting left arm above the shoulder behind the neck for 6 weeks. She should keep the incision dry for at least 5 days. We will obtain a follow-up appointment in our clinic for wound evaluation next week. 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 Pending Studies at Discharge: No Stand-Alone Forms: My [facility] [place], Smoking Cessation Medications and DC Order Prescriptions: New oxycodone 5 mg capsule 5 mg PO Q6H PRN (Reason: pain) Qty: 5 0RF Continued magnesium oxide 400 mg (241.3 mg magnesium) tablet 400 mg PO HS melatonin 10 mg capsule 10 mg PO HS albuterol sulfate [Ventolin HFA] 90 mcg/actuation HFA aerosol inhaler 2 puffs INH Q4H PRN (Reason: shortness of breath or wheezing) Qty: 18 5RF atorvastatin 40 mg tablet 40 mg PO QAM metformin 500 mg Tablet 500 mg PO BID ascorbic acid (vitamin C) [Vitamin C] 1,000 mg Tablet 1,000 mg PO QAM lysine 500 mg Tablet 500 mg PO QAM fluticasone propionate 50 mcg/actuation spray,suspension 2 sprays INTNAS QAM PRN (Reason: Congestion) Rx Instructions: administer into each nostril Align 4 mg Capsule 4 mg PO HS levothyroxine 112 mcg Tablet 112 mcg PO QAM aspirin 81 mg Tablet,Delayed Release (Dr/Ec) 81 mg PO QAM Jardiance 10 mg tablet 10 mg PO QAM multivitamin Tablet 1 tab PO QAM PreserVision AREDS-2 250-90-40-1 mg Capsule 1 tab PO BID Probiotic 1 tab PO HS Discontinued dronedarone 400 mg tablet 400 mg PO BID Discharge Orders: Discharge Order (Routine); Ordered 07/14/22 Ordered By: Satish Arriola Admission Data Admit Date/Time: 07/13/22 15:38 Attending Provider: Satish Arriola Admit Provider: Satish Arriola Primary Care Provider: Lewis Villaseñor Other Interventions: Discharge Summary Assessment (RN) Last Done: 07/14/22 11:21 Coding Level of Care Code 24654 OBS Care - Discharge Diagnoses Atrial fibrillation with RVR I48.91
--- NOTE | 2022-07-14 11:00 | XRay Report ---
XR chest 2V PA/lateral HISTORY: Left-sided pacemaker placement. EXACT TIME ORDERED Evaluate for pneumothorax and l COMPARISON: Chest 12/30/2020. FINDINGS: Interval placement left-sided dual-chamber pacemaker. The leads appear intact. No pneumotho rax. No pleural effusions. The lungs are clear. The heart remains enlarged. There are dense mitral an nulus calcifications and an occlusion device noted within the left atrial appendage. This remains unc hanged. IMPRESSION: Status post placement of a left-sided dual-chamber pacemaker. No pneumothorax. ACT 112: Negative or not required by law. Electronically signed by: Sonu Call M.D. 07/14/2022 10:59 AM
--- NOTE | 2022-07-15 21:28 | Electrocardiogram Report ---
Test Reason : Blood Pressure : / mmHG Vent. Rate : 090 BPM Atrial Rate : 312 BPM P-R Int : 000 ms QRS Dur : 108 ms QT Int : 340 ms P-R-T Axes : 000 -29 180 degrees QTc Int : 415 ms Ventricular-paced rhythm with premature ventricular or aberrantly conducted complexes Abnormal ECG When compared with ECG of 12-MAY-2022 07:28, Electronic ventricular pacemaker has replaced Sinus rhythm Vent. rate has increased BY 45 BPM Confirmed by Anson Hackett ([id number]) on 07/15/2022 9:28:22 PM Referred By: Noam De Souza Confirmed By:Anson Hackett
== END 2022-07-14 12:24 | disposition home or self-care (01) ==
LOC: EP 11:37 → 4W 11:37
DX: Z88.3 Allergy status to other anti-infective agents; Z79.82 Long term (current) use of aspirin; I48.19 Other persistent atrial fibrillation; Z79.890 Hormone replacement therapy; I09.9 Rheumatic heart disease, unspecified; I25.10 Atherosclerotic heart disease of native coronary artery without angina pectoris; Z88.1 Allergy status to other antibiotic agents; Z88.8 Allergy status to other drugs, medicaments and biological substances; Z79.899 Other long term (current) drug therapy; Z79.84 Long term (current) use of oral hypoglycemic drugs